=== PATIENT | male | born 1945 ===

== ENCOUNTER 2016-12-05 16:01 | Inpatient (IN) | payer MEDICARE ==
[2016-12-05 17:10] LABS: BASO % 0.6 % (0.0-2.0); EOS # 0.2 K/uL (0.0-0.7); EOS % 4.4 % (0.0-4.0); HEMATOCRIT 32.3 % (35.0-51.0); LYMPH # 0.9 K/uL (1.0-4.3); LYMPH % 18.4 % (20.0-40.0); MEAN CELL VOLUME 89.1 fL (80.0-94.0); MEAN CORPUSCULAR HEMOGLOBIN 28.9 pg (27.0-31.0); MEAN CORPUSCULAR HGB CONC 32.4 g/dL (33.0-37.0); MEAN PLATELET VOLUME 10.8 fL (7.2-11.7); MONO # 0.4 K/uL (0.0-0.8); MONO % 8.3 % (0.0-10.0); RED CELL DISTRIBUTION WIDTH 14.2 % (11.5-14.5); WHITE BLOOD COUNT 4.9 K/uL (4.8-10.8)
[2016-12-05 17:15] LABS: POTASSIUM 5.4 mmol/L (3.6-5.2)
[2016-12-05 17:17] LABS: ALB/GLOB RATIO 1.2 (1.0-2.1); BILIRUBIN,TOTAL 0.4 mg/dL (0.2-1.3)
[2016-12-05 17:18] LABS: CALCIUM 7.7 mg/dl (8.6-10.4)
--- NOTE | 2016-12-05 17:24 | RAD ---
HISTORY: chest pain COMPARISON: None available TECHNIQUE: Chest, one view. FINDINGS: LUNGS: No focal consolidation. Please note that chest x-ray has limited sensitivity for the detection of pulmonary masses. PLEURA: No significant pleural effusion identified. No definite pneumothorax . CARDIOVASCULAR: Heart size appears top normal. Atherosclerotic calcifications of the aorta. OSSEOUS STRUCTURES: Degenerative changes. VISUALIZED UPPER ABDOMEN: Unremarkable. OTHER FINDINGS: None. IMPRESSION: No focal consolidation, significant pleural effusion, or definite pneumothorax identified.
[2016-12-05 17:28] LABS: TROPONIN I 0.016 ng/mL (0.00-0.120)
--- NOTE | 2016-12-05 18:09 | C.PDOC ---
History Of Present Illness The patient, a 71 y/o male, is brought to the ED by ambulance for evaluation of a syncopal episode which occurred earlier today. Patient states he was walking when he suddenly began feeling very tired. Patient then regained consciousness and saw a bystander who had been attempting to wake him up. The bystander had called the ambulance and patient reports to the ED for further evaluation. Patient reports he had 3 similar syncopal episodes in the past (3 months ago and 5 years ago) but states he did not seek medical evaluation at the time. Upon ED arrival, patient was found to have elevated blood pressure. Otherwise, patient denies fever, chills, chest pain, shortness of breath, and vomiting. Time Seen by Provider: 12/05/16 16:28 Chief Complaint (Nursing): Syncope History Per: Patient, EMS History/Exam Limitations: no limitations Onset/Duration Of Symptoms: Hrs Current Symptoms Are (Timing): Better Activity At Onset Of Symptoms: Sitting Associated Symptoms Preceding Syncopal Episode: No Predromal Symptoms (Sudden Onset) Seizure Or Post-ictal Symptoms: None Fall Associated With With Symptoms: No Additional History Per: Patient, EMS Past Medical History Reviewed: Historical Data, Nursing Documentation, Vital Signs Vital Signs: Last Vital Signs Temp 98.0 F 12/07/16 07:02 Pulse 84 12/07/16 08:00 Resp 18 12/07/16 07:02 BP 168/76 H 12/07/16 09:17 Pulse Ox 98 12/07/16 07:02 - Medical History PMH: HTN, Hypercholesterolemia Surgical History: No Surg Hx Family History: States: Unknown Family Hx - Social History Hx Alcohol Use: Yes Hx Substance Use: No - Immunization History Hx Tetanus Toxoid Vaccination: (not sure) Hx Influenza Vaccination: (not sure) Hx Pneumococcal Vaccination: (not sure) Review Of Systems Constitutional: Negative for: Fever, Chills Cardiovascular: Negative for: Chest Pain Respiratory: Negative for: Shortness of Breath Gastrointestinal: Negative for: Vomiting Neurological: Positive for: Other (+syncopal episode ) Physical Exam - Physical Exam Appears: Non-toxic, No Acute Distress Skin: Normal Color, Warm, Dry Head: Atraumatic, Normacephalic Eye(s): bilateral: Normal Inspection, PERRL, EOMI Oral Mucosa: Moist Neck: Supple Chest: Symmetrical, No Deformity, No Tenderness Cardiovascular: Rhythm Regular, No Murmur Respiratory: Normal Breath Sounds, No Rales, No Rhonchi, No Wheezing Gastrointestinal/Abdominal: Soft, No Tenderness, No Guarding, No Rebound Back: Normal Inspection, No Vertebral Tenderness, No Paraspinal Tenderness Extremity: Normal ROM Neurological/Psych: Oriented x3, Normal Speech, Normal Cognition Gait: Steady ED Course And Treatment - Laboratory Results Result Diagrams: 12/07/16 11:21 12/07/16 11:21 ECG: Interpreted By Me, Viewed By Me ECG Rhythm: Sinus Rhythm Interpretation Of ECG: Normal Sinus Rhythm at rate 85bpm. Old inferior NE. No acute changes. Rate From EC O2 Sat by Pulse Oximetry: 100 (on RA) Pulse Ox Interpretation: Normal - Other Rad CXR X-Ray: Interpreted by Me, Viewed By Me, Read By Radiologist Interpretation: Accession No. : [id number]. Patient Name / ID : GILBERT CANCHOLA / [id number]. Exam Date : 12/05/2016 16:59:00 ( Approved ). Study Comment : Sex / Age : M / 71Y. Creator : Soraya Bond MD. Dictator : Soraya Bond MD. Inspector Air Carrier : Director Of Contracts : Soraya Bond MD. Approver2 : Report Date : 12/05/2016 17:22:45. My Comment : . HISTORY: chest pain. COMPARISON: None available. TECHNIQUE: Chest, one view. FINDINGS: LUNGS: No focal consolidation. Please note that chest x- ray has limited sensitivity for the detection of pulmonary masses. PLEURA: No significant pleural effusion identified. No definite pneumothorax . CARDIOVASCULAR: Heart size appears top normal. Atherosclerotic calcifications of the aorta. OSSEOUS STRUCTURES: Degenerative changes. VISUALIZED UPPER ABDOMEN: Unremarkable. OTHER FINDINGS: None. IMPRESSION: No focal consolidation, significant pleural effusion, or definite pneumothorax identified. Progress Note: Labs, EKG, and CXR ordered and reviewed. Medical Decision Making Medical Decision Making: Pt remained stable in the ED Labs show elevated creat with anemia likely CKD, pt unsure of past renal hx In view of the above pt will need admission for further evaluation Discussed with dr Kirby agrees with plan Disposition - Disposition Disposition: HOSPITALIZED Disposition Time: 00:00 Condition: GOOD - Clinical Impression Clinical Impression: Syncope, Renal failure - Scribe Statement The provider has reviewed the documentation as recorded by the Scribe (Xochitl Ewing) Provider Attestation: All medical record entries made by the Scribe were at my direction and personally dictated by me. I have reviewed the chart and agree that the record accurately reflects my personal performance of the history, physical exam, medical decision making, and the department course for this patient. I have also personally directed, reviewed, and agree with the discharge instructions and disposition.
--- NOTE | 2016-12-05 20:33 | CP.PCM.HP ---
<Dewayne JIMENEZBrittny Franks - Last Filed: 12/05/16 22:15> History of Present Illness - History of Present Illness History of Present Illness: Patient is a 71 year old male with past medical history of HTN, HLD who presents to the ER after syncopal episode. Interview conducted with video snailer Sarah # [id number]. Patient states that he was walking around doing errands when he suddenly felt very tired like he could fall asleep at that moment. Patient denies dizziness or lightheadedness at that time but admits to diaphoresis and feeling hot. Patient states that he held himself up against a wall because he felt like he would fall to the ground. He states that a bystander saw him looking unwell and asked if he needed an ambulance. Patient states he told the bystander he did not feel well and so was brought by ambulance to the ED. Patient reports a similar episode 2 weeks ago and a few years ago. Patient states that when this sensation occurred 2 weeks ago he was home and did nothing as he assumed the sensation would pass, which it did. Patient denies seeking medical attention for this issue 2 weeks ago. Patient states that when this happened several years ago he was told he had some type of blockage in an artery and he went to see a sports recruiter. Patient denies cardiac catheterization and states he cannot explain how the doctor knew he had a blockage. Patient denies headache, dizziness/ lightheadedness, fatigue, visual changes, dyspnea/ dyspnea on exertion, cough, leg swelling, orthopnea, weight or appetite changes. Patient currently asymptomatic. Patient denies loss of consciousness. PMD: none Outpatient cardio: Dr. Tawana Lira PMH: HTN, HLD, blood problem unspecified, artery blockage unspecified- of note, patient has visit listed in EMR for CKD stage 4 in 2013- patient has no memory of this Meds: patient states he takes 4 pills but cannot recall what they are- will call [facility] in AM for medications [phone]; admits to taking occasional motrin for back pain- most is 2 tablets of OTC 200mg a day PSHx: eye surgeries for unspecified visual problem- both eyes, appendectomy, possible EGD/ colonoscopy in 1987- patient does not know for what- he states he was not feeling well at that time and states he had a camera go in his mouth and rectum FamHx: denies SocialHx: denies alcohol, drugs, tobacco; lives in apt alone; does some construction work to pay bills Present on Admission - Present on Admission Any Indicators Present on Admission: No Review of Systems - Constitutional Constitutional: Lethargy, Weakness. absent: Chills, Fever - EENT Eyes: Loss of Vision (chronic s/p eye surgeries) Ears: absent: Dizziness - Cardiovascular Cardiovascular: Diaphoresis. absent: Chest Pain, Chest Pain at Rest, Dyspnea, Dyspnea on Exertion, Leg Edema, Lightheadedness, Palpitations, Pedal Edema, Rapid Heart Rate - Respiratory Respiratory: absent: Cough, Dyspnea, Dyspnea on Exertion - Gastrointestinal Gastrointestinal: absent: Abdominal Pain, Change in Bowel Habits, Change in Stool Character, Constipation, Diarrhea, Hematemesis, Hematochezia, Loose Stools , Nausea, Vomiting - Genitourinary Genitourinary: absent: Difficulty Urinating, Hematuria - Musculoskeletal Musculoskeletal: Back Pain (chronic) - Integumentary Integumentary: absent: Dry Skin, Rash - Neurological Neurological: Syncope, Weakness. absent: Dizziness, Vertigo Past Patient History - Past Social History Smoking Status: Never Smoked - CARDIAC Hx Hypercholesterolemia: Yes Hx Hypertension: Yes - PSYCHIATRIC Hx Substance Use: No Meds Allergies/Adverse Reactions: Allergies Allergy/AdvReac Type Severity Reaction Status Date / Time No Known Allergies Allergy Verified 12/05/16 16:17 Physical Exam - Constitutional Appears: Non-toxic, No Acute Distress - Head Exam Head Exam: ATRAUMATIC, NORMOCEPHALIC - Eye Exam Eye Exam: EOMI, Normal appearance. absent: Conjunctival injection - ENT Exam ENT Exam: Mucous Membranes Moist - Neck Exam Neck exam: Negative for: Lymphadenopathy, Thyromegaly - Respiratory Exam Respiratory Exam: Clear to Auscultation Bilateral, NORMAL BREATHING PATTERN. absent: Chest Wall Tenderness, Rales, Rhonchi, Wheezes - Cardiovascular Exam Cardiovascular Exam: +S1, +S2 - GI/Abdominal Exam GI & Abdominal Exam: Normal Bowel Sounds, Soft. absent: Distended, Firm, Guarding, Tenderness - Rectal Exam Rectal Exam: NORMAL INSPECTION. absent: Bloody Stool, Hemorrhoids, Fecal Impaction - Extremities Exam Extremities exam: Positive for: normal inspection. Negative for: calf tenderness, pedal edema - Neurological Exam Neurological exam: Alert, CN II-XII Intact, Normal Gait - Psychiatric Exam Psychiatric exam: Normal Affect - Skin Skin Exam: Dry, Warm Results - Vital Signs Recent Vital Signs: Last Vital Signs Temp 97.9 F 12/05/16 16:13 Pulse 86 12/05/16 16:13 Resp 18 12/05/16 16:13 BP 164/59 H 12/05/16 16:13 Pulse Ox 100 12/05/16 18:18 - Labs Result Diagrams: 12/05/16 17:01 12/05/16 17:01 Assessment & Plan (1) Syncope Assessment and Plan: CT head-no acute bleed- official read pending EKG NSR @ 85, possible old inferior NE will repeat EKG in AM will check orthostatics cartoid US ordered MRI brain ordered echo ordered First RAÚL negative, will continue to trend Dr. Lira, patient's sports recruiter, consulted- help appreciated giving one dose aspirin 325, crestor 5mg Status: Acute (2) HTN (hypertension) Assessment and Plan: Patient's medications unknown, will contact [facility] tomorrow morning will continue to monitor and add medications as necessary Status: Acute (3) Renal insufficiency Assessment and Plan: patient with outpatient visit in 2013 for CKD stage 4- patient unaware of renal problems Consult placed for Dr. Fry, help appreciated renal US ordered, will F/U result will check urine sodium, creatinine, osmolality, will check 24h urine protein starting NS @ 100cc/h Status: Acute (4) Anemia Assessment and Plan: Likely chronic, secondary to chronic kidney disease patient states history of blood problem, does not know what will check iron, TIBC, retic count Status: Chronic (5) HLD (hyperlipidemia) Assessment and Plan: will give crestor 5mg until home medications verified Status: Chronic (6) Prophylactic measure Assessment and Plan: SCDs, protonix holding chemical anticoagulation fall precautions Status: Acute <Jovanni Kirby - Last Filed: 12/06/16 06:24> Results - Vital Signs Recent Vital Signs: Last Vital Signs Temp 98.1 F 12/05/16 23:11 Pulse 86 12/05/16 23:11 Resp 20 12/05/16 23:11 BP 206/94 H 12/05/16 23:11 Pulse Ox 100 12/05/16 23:11 - Labs Result Diagrams: 12/05/16 17:01 12/05/16 17:01 Labs: Laboratory Results - last 24 hr 12/05/16 12/05/16 21:11 22:35 Retic Count 0.7 Serum Osmolality 315 H Iron 58 TIBC 298 % Saturation 19 L Ferritin 16.5 Total Creatine Kinase 140 CK-MB (Mass) 1.50 Troponin I, Quant 0.0180 Urine Osmolality 294 L Ur Random Creatinine 59.8 Ur Random Sodium 30 Stool Occult Blood Negative Assessment & Plan - Date & Time Date: 12/06/16 (I have seen and examined the patient. I agree with the findings and plan of care as documented by Dr. Buchanan. Patient with syncope. CT head negative. Check MRI brain in AM. Patient reports past cardiac issue but could not specify. ROMIx3 with EKG. For renal insufficiency , check renal ultrasound. Chronic issue compared to prior labs. Nephro consult. Also with anemia. Check iron studies. Hemoccult negative. Monitor for acute changes.) Time: 06:21 Attending/Attestation - Attestation I have personally seen and examined this patient.: Yes I have fully participated in the care of the patient.: Yes I have reviewed all pertinent clinical information: Yes
[2016-12-05] MEDS ORDERED: Aspirin 325 mg EC Tablets PO STA (21:32)
[2016-12-05 22:53] LABS: IRON 58 ug/dL (49-181)
[2016-12-05 22:58] LABS: CREATININE, RANDOM URINE 59.8 mg/dL
[2016-12-06] MEDS: Sodium Chloride 0.9% 1,000 ML IV SCH ×5 (00:09→23:23)
[2016-12-06 06:27] LABS: BASO % 0.7 % (0.0-2.0); EOS # 0.2 K/uL (0.0-0.7); EOS % 3.4 % (0.0-4.0); HEMATOCRIT 30.1 % (35.0-51.0); LYMPH # 1.4 K/uL (1.0-4.3); LYMPH % 24.4 % (20.0-40.0); MEAN CELL VOLUME 89.6 fL (80.0-94.0); MEAN CORPUSCULAR HEMOGLOBIN 28.8 pg (27.0-31.0); MEAN CORPUSCULAR HGB CONC 32.1 g/dL (33.0-37.0); MEAN PLATELET VOLUME 10.9 fL (7.2-11.7); MONO # 0.6 K/uL (0.0-0.8); RED CELL DISTRIBUTION WIDTH 14.2 % (11.5-14.5); WHITE BLOOD COUNT 5.9 K/uL (4.8-10.8)
[2016-12-06 06:30] LABS: POTASSIUM 4.3 mmol/L (3.6-5.2)
[2016-12-06 06:32] LABS: ALB/GLOB RATIO 1.1 (1.0-2.1); BILIRUBIN,TOTAL 0.6 mg/dL (0.2-1.3)
[2016-12-06 06:33] LABS: CALCIUM 7.2 mg/dl (8.6-10.4)
[2016-12-06 06:52] LABS: T4 4.21 ug/dL (5.5-11.0)
[2016-12-06 07:05] LABS: THYROID STIMULATING HORMONE 2.32 mIU/L (0.46-4.68)
--- NOTE | 2016-12-06 07:54 | CT ---
PROCEDURE: CT HEAD WITHOUT CONTRAST. HISTORY: Fall COMPARISON: None available. TECHNIQUE: Axial computed tomography images were obtained through the head/brain without intravenous contrast. Radiation dose: Total exam DLP = 899 mGy-cm. This CT exam was performed using one or more of the following dose reduction techniques: Automated exposure control, adjustment of the mA and/or kV according to patient size, and/or use of iterative reconstruction technique. FINDINGS: HEMORRHAGE: No intracranial hemorrhage. BRAIN: Scattered focal lucencies in the subcortical and periventricular white matter suggestive for chronic microvascular ischemic change. Mild to moderate brain volume loss. Focal hypodensity in the posterior left cerebellum may represent chronic infarct as seen on series 4, image 7. This measures 8 millimeters. VENTRICLES: Unremarkable. No hydrocephalus. CALVARIUM: Unremarkable. PARANASAL SINUSES: Unremarkable as visualized. No significant inflammatory changes. MASTOID AIR CELLS: Unremarkable as visualized. No inflammatory changes. OTHER FINDINGS: Calcific atherosclerosis of the bilateral carotid siphon. IMPRESSION: No acute intracranial abnormality. Chronic microvascular ischemic change. Focal hypodensity in the posterior left cerebellum may represent chronic infarct as seen on series 4, image 7. This measures 8 millimeters. If focal neurologic deficit persists, consider MRI. Additional findings as above. These findings were preliminarily reported by doctor Ivan Self from [email or web address] at 8:46 p.m. on 12/05/2016.
--- NOTE | 2016-12-06 08:19 | US ---
PROCEDURE: Ultrasound of the Kidneys HISTORY: Markedly elevated creat COMPARISON: None available. TECHNIQUE: Grayscale imaging was performed. FINDINGS: RIGHT KIDNEY: Measures: 9.0 cm. Normal in size, contour with diffuse increased echogenicity. No stone, solid mass lesion or hydronephrosis visualized. LEFT KIDNEY: Measures: 9.4 cm. Normal in size, contour with diffuse increased echogenicity. No stone, solid mass lesion or hydronephrosis visualized. OTHER FINDINGS: None. IMPRESSION: Medical renal disease. No hydronephrosis or nephrolithiasis. A preliminary report was provided by [employer].
[2016-12-06] MEDS ORDERED: Pantoprazole 40 mg EC Tab PO SCH (10:00)
--- NOTE | 2016-12-06 11:56 | CP.PCM.CON ---
History of Present Illness - History of Present Illness History of Present Illness: 71 y/o male with Hx/o HTN, CKD, RI, CVA hyperlipidemia was admitted last night for syncopal episode Renal consult is requested for evaluation of abnormal renal function. x is obtained from Pt via yi interpretor. Pt states that he found out for the first time that he has kiney problem. Had blood tests 2 mos ago & was told that everything was OK. Does not know name of his doctor Pts son also doesnot know if Pt had any kidney problem No FHx/o kidney dis. Past Patient History - Past Social History Smoking Status: Never Smoked - CARDIAC Hx Hypercholesterolemia: Yes Hx Hypertension: Yes - MUSCULOSKELETAL/RHEUMATOLOGICAL Hx Falls: No - PSYCHIATRIC Hx Substance Use: No Meds Allergies/Adverse Reactions: Allergies Allergy/AdvReac Type Severity Reaction Status Date / Time No Known Allergies Allergy Verified 12/05/16 16:17 - Medications Medications: Current Medications Sodium Chloride (Sodium Chloride 0.9%) 1,000 mls @ 100 mls/hr IV .Q10H [facility] Last Admin: 12/06/16 11:48 Dose: Not Given Pantoprazole Sodium (Protonix Ec Tab) 40 mg PO DAILY [facility] Last Admin: 12/06/16 11:46 Dose: 40 mg Pneumococcal Polyvalent Vaccine (Pneumovax 23 Vaccine) 0.5 ml IM .ONCE ONE Stop: 12/08/16 10:01 Rosuvastatin Calcium (Crestor) 5 mg PO [facility] Last Admin: 12/05/16 23:04 Dose: 5 mg Physical Exam - Constitutional Appears: No Acute Distress - Head Exam Head Exam: ATRAUMATIC, NORMOCEPHALIC - Eye Exam Additional comments: No icterus - ENT Exam ENT Exam: Mucous Membranes Dry - Respiratory Exam Additional comments: Lungs clear - Cardiovascular Exam Cardiovascular Exam: REGULAR RHYTHM - GI/Abdominal Exam GI & Abdominal Exam: Soft Additional comments: Abdomen is nontender. No CVA tenderness - Extremities Exam Additional comments: No edema Results - Vital Signs Recent Vital Signs: Last Vital Signs Temp 97 F L 12/06/16 07:10 Pulse 84 12/06/16 07:10 Resp 18 12/06/16 07:10 BP 169/75 H 12/06/16 07:10 Pulse Ox 96 12/06/16 07:10 - Labs Result Diagrams: 12/06/16 06:11 12/06/16 06:11 Labs: Laboratory Results - last 24 hr 12/05/16 12/05/16 12/06/16 21:11 22:35 06:11 WBC 5.9 RBC 3.36 L Hgb 9.7 L Hct 30.1 L MCV 89.6 MCH 28.8 MCHC 32.1 L RDW 14.2 Plt Count 138 MPV 10.9 Neut % (Auto) 61.5 Lymph % (Auto) 24.4 [place] % (Auto) 10.0 Eos % (Auto) 3.4 Baso % (Auto) 0.7 Neut # 3.6 Lymph # 1.4 [place] # 0.6 Eos # 0.2 Baso # 0.0 Retic Count 0.7 Sodium 140 Potassium 4.3 Chloride 108 H Carbon Dioxide 18 L Anion Gap 18 BUN 67 H Creatinine 5.3 H Est GFR ( Amer) 13 Est GFR (Non-Af Amer) 11 Random Glucose 73 L Hemoglobin A1c 6.1 Serum Osmolality 315 H Calcium 7.2 L Iron 58 TIBC 298 % Saturation 19 L Ferritin 16.5 Total Bilirubin 0.6 AST 21 ALT 15 L Alkaline Phosphatase 82 Total Creatine Kinase 140 149 CK-MB (Mass) 1.50 1.58 Troponin I, Quant 0.0180 0.0360 Total Protein 7.0 Albumin 3.7 Globulin 3.3 Albumin/Globulin Ratio 1.1 Triglycerides 143 Cholesterol 141 LDL Cholesterol Direct 63 HDL Cholesterol 39 Thyroxine (T4) 4.21 L TSH 3rd Generation 2.32 Urine Osmolality 294 L Ur Random Creatinine 59.8 Ur Random Sodium 30 Stool Occult Blood Negative Assessment & Plan - Assessment and Plan (Free Text) Assessment: Pt most likely has chronic kidney Dis. Renal US reveals B/L echogenic kidneys HTN CAD, hyperlipidemia, old CVA Plan: urine spot lytes Phos level, PTH Gentle hydration BP has been high, Will add hydralazine
[2016-12-06 13:21] LABS: PHOSPHOROUS 5.6 mg/dL (2.5-4.5)
--- NOTE | 2016-12-06 14:43 | VASCLAB ---
PROCEDURE: HISTORY: syncope COMPARISON: None available. TECHNIQUE: Grayscale and duplex Doppler evaluation of the cervical carotid and vertebral arteries were performed. The common carotid, carotid bifurcations and cervical Internal Carotid Artery (ICA) and proximal External Carotid Artery (ECA) were evaluated. The vertebral arteries were evaluated for gross patency and flow direction. Report prepared by AZIZA Estes FINDINGS: RIGHT CAROTID ARTERIES: 1. Common Carotid Artery: Minimal heterogeneous plaque formation of the right CCA which does not result in hemodynamically significant stenosis. Maximum Peak Systolic velocity: 76 cm/sec: End-diastolic velocity 14 cm/sec. 2. Carotid Bifurcation: Heterogeneous plaque formation. Maximum Peak Systolic velocity: 68 cm/sec: End-diastolic velocity 14cm/sec. 3. Internal Carotid Artery: Plaque description: Heterogeneous 3.1. Proximal Segment: Peak systolic velocity 60 cm/sec: End-diastolic velocity 20 cm/sec - % stenosis 0-15% 3.2. Middle Segment: Peak systolic velocity 109 cm/sec: End-diastolic velocity 31 cm/sec - % stenosis 0-15% 3.3. Distal Segment: Peak systolic velocity 78 cm/sec: End-diastolic velocity 21 cm/sec - % stenosis 0-15% 4. External Carotid Artery: No significant focal plaque formation. Peak systolic velocity 101 cm/sec 5. ICA/CCA Ratio: 1.4 LEFT CAROTID ARTERIES: 1. Common Carotid Artery: Minimal heterogeneous plaque formation of the left CCA which does not result in hemodynamically significant stenosis. Maximum Peak Systolic velocity: 91 cm/sec: End-diastolic velocity 20 cm/sec. 2. Carotid Bifurcation: Heterogeneous plaque formation. Maximum Peak Systolic velocity: 78 cm/sec: End-diastolic velocity 21 cm/sec. 3. Internal Carotid Artery: Plaque description: Heterogeneous 3.1. Proximal Segment: Peak systolic velocity 81 cm/sec: End-diastolic velocity 29 cm/sec - % stenosis 0-15% 3.2. Middle Segment: Peak systolic velocity 110 cm/sec: End-diastolic velocity 29 cm/sec - % stenosis 0-15% 3.3. Distal Segment: Peak systolic velocity 66 cm/sec: End-diastolic velocity 26 cm/sec - % stenosis 0-15% 4. External Carotid Artery: No significant focal plaque formation. Peak systolic velocity 93 cm/sec 5. ICA/CCA Ratio: 1.2 VERTEBRAL ARTERIES: 1. Right Vertebral Artery: The right vertebral artery flow direction is antegrade. 2. Left Vertebral Artery: The left vertebral artery flow direction is antegrade. OTHER FINDINGS: 1. Right Brachial Blood pressure: 180 mmHg. 2. Left Brachial Blood pressure: 180 mmHg. IMPRESSION: RIGHT: Duplex scan does not suggest hemodynamically significant stenosis of the right extracranial carotid arteries. LEFT: Duplex scan does not suggest hemodynamically significant stenosis of the left extracranial carotid arteries.
--- NOTE | 2016-12-06 15:08 | CP.PCM.PN ---
<LeighsushilMike mckeon - Last Filed: 12/06/16 16:15> Subjective - Date & Time of Evaluation Date of Evaluation: 12/06/16 Time of Evaluation: 09:00 - Subjective Subjective: PGY-1 Medicine Progress Note for Dr. Mooney Patient seen and examined at bedside. No acute event overnight. Patient resting in bed comfortably. Patient stated that he did not loss conscious yesterdya. He felt extremely dizzy while walking and thought he was going to fall or pass out. Patient reported that the dizziness/lightheaded has since resolved. He is tolerating diet. Denied fever/chills, cp, sob, headache, palpitations, abd pain , n/v/d. Objective - Vital Signs/Intake and Output Vital Signs (last 24 hours): Temp Pulse Resp BP Pulse Ox 97 F L 85 18 169/75 H 96 12/06/16 07:10 12/06/16 14:18 12/06/16 07:10 12/06/16 07:10 12/06/16 07:10 - Medications Medications: Current Medications Heparin Sodium (Porcine) (Heparin) 5,000 units SC Q12 [facility] Hydralazine HCl (Apresoline) 10 mg IVP TID [facility] Sodium Chloride (Sodium Chloride 0.9%) 1,000 mls @ 100 mls/hr IV .Q10H [facility] Last Admin: 12/06/16 11:48 Dose: Not Given Pantoprazole Sodium (Protonix Ec Tab) 40 mg PO DAILY [facility] Last Admin: 12/06/16 11:46 Dose: 40 mg Pneumococcal Polyvalent Vaccine (Pneumovax 23 Vaccine) 0.5 ml IM .ONCE ONE Stop: 12/08/16 10:01 Rosuvastatin Calcium (Crestor) 5 mg PO HS [facility] Last Admin: 12/05/16 23:04 Dose: 5 mg - Labs Labs: 12/06/16 06:11 12/06/16 06:11 - Constitutional Appears: No Acute Distress - Head Exam Head Exam: ATRAUMATIC, NORMOCEPHALIC - Eye Exam Eye Exam: EOMI, Normal appearance Pupil Exam: PERRL - ENT Exam ENT Exam: Mucous Membranes Moist - Neck Exam Neck Exam: Normal Inspection - Respiratory Exam Respiratory Exam: Clear to Ausculation Bilateral, NORMAL BREATHING PATTERN - Cardiovascular Exam Cardiovascular Exam: REGULAR RHYTHM, +S1, +S2 - GI/Abdominal Exam GI & Abdominal Exam: Soft, Normal Bowel Sounds. absent: Tenderness - Extremities Exam Extremities Exam: Normal Capillary Refill. absent: Calf Tenderness - Back Exam Back Exam: absent: CVA tenderness (L), CVA tenderness (R) - Neurological Exam Neurological Exam: Alert, Awake, CN II-XII Intact, Oriented x3 - Psychiatric Exam Psychiatric exam: Normal Affect, Normal Mood - Skin Skin Exam: Dry, Intact, Normal Color, Warm Assessment and Plan - Assessment and Plan (Free Text) Plan: (1) Syncope Assessment and Plan: CT head: no acute intracranial abnormality. Chronic microvascular changes. Focal hypodensities in posterior left cerebellum possibly due to chronic infarct (see full report) EKG NSR @ 85, possible old inferior [place] orthostats Q4H cartoid US: negative (see full report) MRI brain ordered ECHO RAÚL negative x 3 Cardio consult, Dr. Lira, help appreciated (2) HTN Assessment and Plan: Metoprolol 25 mg PO BID Hydralazine 10 mg IVP TID Continue to monitor (3) Renal insufficiency Assessment and Plan: patient with outpatient visit in 2013 for CKD stage 4- patient unaware of renal problems Nephro consult, Dr. Fry, help appreciated renal US: medical renal disease f/u urine sodium, creatinine, osmolality, 24h urine protein NS 100cc/hr (4) Anemia Assessment and Plan: Likely chronic, secondary to chronic kidney disease patient states history of blood problem, does not know what iron TIBC retic count (5) HLD Assessment and Plan: Crestor 5 mg PO HS (6) CAD Assessment and Plan: ASA 81 mg PO daily Crestor 5 mg PO HS Plavix 75 mg PO daily (7) Prophylactic measure Assessment and Plan: SCDs protonix Heparin fall precautions Contacted [facility] ([address] [place] [address]) home medications obtained and added to patient summary: Simvastatin 20 mg PO daily, ASA 81 mg PO daily, Plavix 75 mg PO daily, Metoprolol 25 mg PO BID <Shashi Mooney - Last Filed: 01/10/17 12:06> Objective - Vital Signs/Intake and Output Vital Signs (last 24 hours): Temp Pulse Resp BP Pulse Ox 98.1 F 87 20 170/70 H 98 12/09/16 08:22 12/09/16 08:22 12/09/16 08:22 12/09/16 08:22 12/09/16 08:22 - Labs Labs: 12/09/16 07:51 12/09/16 07:51 Attending/Attestation - Attestation I have personally seen and examined this patient.: Yes I have fully participated in the care of the patient.: Yes I have reviewed all pertinent clinical information, including history, physical exam and plan: Yes Notes (Text): Patient seen and examined with the resident. Agree with the resident's evaluation, assessment and plan. Syncope Assessment and Plan: CT head: no acute intracranial abnormality. Chronic microvascular changes. Focal hypodensities in posterior left cerebellum possibly due to chronic infarct (see full report) EKG NSR @ 85, possible old inferior [place] orthostats Q4H cartoid US: negative (see full report) MRI brain ordered ECHO RAÚL negative x 3 Cardio consult, Dr. Lira, help appreciated HTN Assessment and Plan: Metoprolol 25 mg PO BID Hydralazine 10 mg IVP TID Continue to monitor
--- NOTE | 2016-12-06 17:55 | CP.PCM.CON ---
History of Present Illness - History of Present Illness History of Present Illness: I felt dizzy and felt like passing out and sat down. Had similar episode two weeks ago. History through chart and records tech. Past Patient History - Past Social History Smoking Status: Never Smoked - CARDIAC Hx Hypercholesterolemia: Yes Hx Hypertension: Yes - MUSCULOSKELETAL/RHEUMATOLOGICAL Hx Falls: No - PSYCHIATRIC Hx Substance Use: No Meds Allergies/Adverse Reactions: Allergies Allergy/AdvReac Type Severity Reaction Status Date / Time No Known Allergies Allergy Verified 12/05/16 16:17 - Medications Medications: Current Medications Aspirin (Ecotrin) 81 mg PO DAILY [facility] Clopidogrel Bisulfate (Plavix) 75 mg PO DAILY [facility] Last Admin: 12/06/16 17:15 Dose: 75 mg Famotidine (Pepcid) 20 mg PO DAILY [facility] Heparin Sodium (Porcine) (Heparin) 5,000 units SC Q12 [facility] Hydralazine HCl (Apresoline) 10 mg IVP TID [facility] Last Admin: 12/06/16 17:43 Dose: 10 mg Sodium Chloride (Sodium Chloride 0.9%) 1,000 mls @ 100 mls/hr IV .Q10H [facility] Last Admin: 12/06/16 11:48 Dose: Not Given Metoprolol Tartrate (Lopressor) 25 mg PO BID [facility] Last Admin: 12/06/16 17:42 Dose: 25 mg Pneumococcal Polyvalent Vaccine (Pneumovax 23 Vaccine) 0.5 ml IM .ONCE ONE Stop: 12/08/16 10:01 Rosuvastatin Calcium (Crestor) 5 mg PO [facility] Last Admin: 12/05/16 23:04 Dose: 5 mg Physical Exam - Head Exam Head Exam: NORMOCEPHALIC - Neck Exam Neck exam: Positive for: Normal Inspection - Respiratory Exam Respiratory Exam: NORMAL BREATHING PATTERN - Cardiovascular Exam Cardiovascular Exam: REGULAR RHYTHM (1/6 systolic murmur ), Systolic Murmur - Extremities Exam Extremities exam: Positive for: normal inspection - Neurological Exam Neurological exam: Oriented x3 Results - Vital Signs Recent Vital Signs: Last Vital Signs Temp 97 F L 12/06/16 07:10 Pulse 85 12/06/16 14:18 Resp 18 12/06/16 07:10 BP 147/68 12/06/16 17:42 Pulse Ox 96 12/06/16 07:10 - Labs Result Diagrams: 12/06/16 06:11 12/06/16 06:11 Labs: Laboratory Results - last 24 hr 12/05/16 12/05/16 12/06/16 21:11 22:35 06:11 WBC 5.9 RBC 3.36 L Hgb 9.7 L Hct 30.1 L MCV 89.6 MCH 28.8 MCHC 32.1 L RDW 14.2 Plt Count 138 MPV 10.9 Neut % (Auto) 61.5 Lymph % (Auto) 24.4 [place] % (Auto) 10.0 Eos % (Auto) 3.4 Baso % (Auto) 0.7 Neut # 3.6 Lymph # 1.4 [place] # 0.6 Eos # 0.2 Baso # 0.0 Retic Count 0.7 Sodium 140 Potassium 4.3 Chloride 108 H Carbon Dioxide 18 L Anion Gap 18 BUN 67 H Creatinine 5.3 H Est GFR ( Amer) 13 Est GFR (Non-Af Amer) 11 Random Glucose 73 L Hemoglobin A1c 6.1 Serum Osmolality 315 H Calcium 7.2 L Phosphorus 5.6 H Iron 58 TIBC 298 % Saturation 19 L Ferritin 16.5 Total Bilirubin 0.6 AST 21 ALT 15 L Alkaline Phosphatase 82 Total Creatine Kinase 140 149 CK-MB (Mass) 1.50 1.58 Troponin I, Quant 0.0180 0.0360 Total Protein 7.0 Albumin 3.7 Globulin 3.3 Albumin/Globulin Ratio 1.1 Triglycerides 143 Cholesterol 141 LDL Cholesterol Direct 63 HDL Cholesterol 39 Thyroxine (T4) 4.21 L TSH 3rd Generation 2.32 Urine Osmolality 294 L Ur Random Creatinine 59.8 Ur Random Sodium 30 Stool Occult Blood Negative Assessment & Plan (1) HTN (hypertension) Assessment and Plan: BP isnot well controlled, add norvasc 10 mg daily and add other vasodilator if needed. Status: Acute (2) Syncope Assessment and Plan: Most likely symptoms due to electrolyte abnormalities secondary to renal insufficiency. Make adjustments in the diet and medical regimen as guided by Nephrology. Status: Acute (3) CAD (coronary artery disease) Assessment and Plan: Stable, continue ASA/Plavix. Monitor for arrhythmias. Status: Acute
--- NOTE | 2016-12-07 07:58 | CARD ---
APPROVED REPORT EKG Measurement Heart [id number] <Conclusion> Normal sinus rhythm Possible Left atrial enlargement Inferior infarct, age undetermined Abnormal ECG
[2016-12-07 08:27] LABS: CREATININE, RANDOM URINE 49.1 mg/dL
--- NOTE | 2016-12-07 11:27 | CP.PCM.PN ---
Subjective - Date & Time of Evaluation Date of Evaluation: 12/07/16 Time of Evaluation: 10:00 - Subjective Subjective: Appears comfortable supine Objective - Vital Signs/Intake and Output Vital Signs (last 24 hours): Temp Pulse Resp BP Pulse Ox 98.0 F 84 18 168/76 H 98 12/07/16 07:02 12/07/16 08:00 12/07/16 07:02 12/07/16 09:17 12/07/16 07:02 Intake and Output: 12/07/16 12/07/16 06:59 18:59 Intake Total 1670 Output Total 1000 Balance 670 - Medications Medications: Current Medications Aspirin (Ecotrin) 81 mg PO DAILY [facility] Last Admin: 12/07/16 09:17 Dose: 81 mg Clopidogrel Bisulfate (Plavix) 75 mg PO DAILY [facility] Last Admin: 12/07/16 09:17 Dose: 75 mg Famotidine (Pepcid) 20 mg PO DAILY [facility] Last Admin: 12/07/16 09:17 Dose: 20 mg Heparin Sodium (Porcine) (Heparin) 5,000 units SC Q12 [facility] Last Admin: 12/07/16 09:17 Dose: 5,000 units Hydralazine HCl (Apresoline) 10 mg IVP TID [facility] Last Admin: 12/07/16 09:17 Dose: 10 mg Sodium Chloride (Sodium Chloride 0.9%) 1,000 mls @ 100 mls/hr IV .Q10H [facility] Last Admin: 12/06/16 23:23 Dose: 100 mls/hr Pneumococcal Polyvalent Vaccine (Pneumovax 23 Vaccine) 0.5 ml IM .ONCE ONE Stop: 12/08/16 10:01 Rosuvastatin Calcium (Crestor) 5 mg PO HS [facility] Last Admin: 12/06/16 22:24 Dose: 5 mg - Labs Labs: 12/06/16 06:11 12/06/16 06:11 - Respiratory Exam Additional comments: Lungs clear - Cardiovascular Exam Cardiovascular Exam: REGULAR RHYTHM - GI/Abdominal Exam GI & Abdominal Exam: Soft Additional comments: No tenderness - Extremities Exam Additional comments: No edema Assessment and Plan - Assessment and Plan (Free Text) Assessment: Acute on chronic renal failure Proteinuria. 24 hr urine reveals 3 g protein. Etiology unclear. There is no clear Hx/o DM Will order serologies & may need kidney Bx HTN CA, D Plan: Todays labs pending Urinalysis Serologies ordered
[2016-12-07 11:44] LABS: BASO % 0.7 % (0.0-2.0); EOS # 0.3 K/uL (0.0-0.7); EOS % 4.3 % (0.0-4.0); HEMATOCRIT 30.2 % (35.0-51.0); LYMPH % 16.8 % (20.0-40.0); MEAN CELL VOLUME 90.8 fL (80.0-94.0); MEAN CORPUSCULAR HEMOGLOBIN 29.1 pg (27.0-31.0); MEAN CORPUSCULAR HGB CONC 32.1 g/dL (33.0-37.0); MEAN PLATELET VOLUME 11.4 fL (7.2-11.7); MONO # 0.5 K/uL (0.0-0.8); MONO % 7.6 % (0.0-10.0); RED CELL DISTRIBUTION WIDTH 14.4 % (11.5-14.5)
[2016-12-07 11:45] LABS: POTASSIUM 4.8 mmol/L (3.6-5.2)
[2016-12-07 11:47] LABS: ALB/GLOB RATIO 1.1 (1.0-2.1); BILIRUBIN,TOTAL 0.2 mg/dL (0.2-1.3); TOTAL PROTEIN 6.7 g/dL (6.3-8.3)
[2016-12-07 11:48] LABS: CALCIUM 7.6 mg/dl (8.6-10.4)
[2016-12-07] MEDS: Sodium Chloride 0.9% 1,000 ML IV SCH ×2 (14:03→21:00)
--- NOTE | 2016-12-07 15:28 | MRI ---
PROCEDURE: MRI BRAIN WITHOUT CONTRAST HISTORY: syncope COMPARISON: None. TECHNIQUE: Multiplanar, multisequence MR images of the brain were obtained without intravenous contrast enhancement. FINDINGS: HEMORRHAGE: None DWI: No evidence of an acute or early subacute infarction. BRAIN PARENCHYMA: No mass effect or edema. There are fairly symmetrical foci of mild increased T2 signal seen in the danyel may involve the olivary nuclei. Mild to moderate atrophy and mbad-yu-dzizpzoe white matter changes are also noted. VENTRICLES: Unremarkable. No hydrocephalus. CRANIUM: Unremarkable. ORBITS: Grossly unremarkable. PARANASAL SINUSES/MASTOIDS: Clear VASCULAR SYSTEM: Skull base flow voids intact. OTHER FINDINGS: None. IMPRESSION: No evidence of acute pathology. No evidence of mass lesion mass effect or midline shift. Symmetrical foci of mild increased T2 signal seen in the danyel of uncertain etiology. Nqta-[id number] atrophy. White matter changes suggestive but nonspecific for chronic microvascular ischemic disease.
[2016-12-07 16:34] VITALS: RESP 20
[2016-12-07 17:05] LABS: RBC URINE < 1 /hpf (0-3); URINE BACTERIA RARE (<OCC); URINE BILIRUBIN NEGATIVE (NEGATIVE); URINE BLOOD NEGATIVE (NEGATIVE); URINE COLOR Straw (YELLOW); URINE GLUCOSE (UA) 2+ mg/dL (Normal); URINE KETONE NEGATIVE (NEGATIVE); URINE LEUKOCYTE ESTERASE NEG Leu/uL (Negative); URINE PROTEIN 2+ mg/dL (NEGATIVE); URINE UROBILINOGEN NORMAL mg/dL (0.2-1.0); WBC URINE < 1 /hpf (0-5)
[2016-12-07] MEDS ORDERED: Sodium Chloride 0.9% 500 ML IV ONE (17:39)
--- NOTE | 2016-12-07 17:56 | CP.PCM.PN ---
<GosiaMike - Last Filed: 12/07/16 19:36> Subjective - Date & Time of Evaluation Date of Evaluation: 12/07/16 Time of Evaluation: 17:44 - Subjective Subjective: PGY-1 Medicine Progress Note for Dr. Mooney Patient seen and examined at bedside. No acute event overnight. Patient resting in bed comfortably. Patient has no complaints today. Patient reported that the dizziness/lightheaded has resolved since inciting incident. He is tolerating diet. Denied fever/chills, cp, sob, headache, palpitations, abd pain, n/v/d. Objective - Vital Signs/Intake and Output Vital Signs (last 24 hours): Temp Pulse Resp BP Pulse Ox 97.4 F L 80 20 147/74 98 12/07/16 16:00 12/07/16 16:00 12/07/16 16:00 12/07/16 14:02 12/07/16 16:00 Intake and Output: 12/07/16 12/07/16 06:59 18:59 Intake Total 1670 Output Total 1000 Balance 670 - Medications Medications: Current Medications Aspirin (Ecotrin) 81 mg PO DAILY [facility] Last Admin: 12/07/16 09:17 Dose: 81 mg Clopidogrel Bisulfate (Plavix) 75 mg PO DAILY [facility] Last Admin: 12/07/16 09:17 Dose: 75 mg Famotidine (Pepcid) 20 mg PO DAILY [facility] Last Admin: 12/07/16 09:17 Dose: 20 mg Heparin Sodium (Porcine) (Heparin) 5,000 units SC Q12 [facility] Last Admin: 12/07/16 09:17 Dose: 5,000 units Hydralazine HCl (Apresoline) 10 mg IVP TID [facility] Last Admin: 12/07/16 14:02 Dose: 10 mg Sodium Chloride (Sodium Chloride 0.9%) 1,000 mls @ 100 mls/hr IV .Q10H [facility] Last Admin: 12/07/16 14:03 Dose: 100 mls/hr Sodium Chloride (Sodium Chloride 0.9%) 500 mls @ 1,000 mls/hr IV .Q30M ONE Stop: 12/07/16 18:08 Pneumococcal Polyvalent Vaccine (Pneumovax 23 Vaccine) 0.5 ml IM .ONCE ONE Stop: 12/08/16 10:01 Rosuvastatin Calcium (Crestor) 5 mg PO HS [facility] Last Admin: 12/06/16 22:24 Dose: 5 mg - Labs Labs: 12/07/16 11:21 12/07/16 11:21 - Constitutional Appears: No Acute Distress - Head Exam Head Exam: ATRAUMATIC, NORMOCEPHALIC - Eye Exam Eye Exam: EOMI, Normal appearance Pupil Exam: PERRL - ENT Exam ENT Exam: Mucous Membranes Moist - Neck Exam Neck Exam: Normal Inspection - Respiratory Exam Respiratory Exam: Clear to Ausculation Bilateral, NORMAL BREATHING PATTERN Assessment and Plan - Assessment and Plan (Free Text) Plan: (1) Syncope Assessment and Plan: CT head: no acute intracranial abnormality. Chronic microvascular changes. Focal hypodensities in posterior left cerebellum possibly due to chronic infarct (see full report) EKG NSR @ 85, possible old inferior [place] orthostats Q4H Orthostats were positive so NS 500 cc bolus then repeat cartoid US: negative (see full report) MRI brain: no acute pathology, lesion, or mass effect. Mild to mod atrophy. White matter changes suggestive but nonspecific for chronic microvascular changes. (see full report) ECHO RAÚL negative x 3 Cardio consult, Dr. Lira, help appreciated (2) HTN Assessment and Plan: Hydralazine 10 mg IVP TID Continue to monitor (3) Renal insufficiency Assessment and Plan: patient with outpatient visit in 2013 for CKD stage 4- patient unaware of renal problems Nephro consult, Dr. Fry, help appreciated renal US: medical renal disease urine sodium 59 creatinine 49.1 osmolality 294 24h urine protein 3060 NS 100cc/hr (4) Anemia Assessment and Plan: Likely chronic, secondary to chronic kidney disease patient states history of blood problem, does not know what iron 58 TIBC 298 ferritin 16.5 retic count 0.7 (5) HLD Assessment and Plan: Crestor 5 mg PO HS (6) CAD Assessment and Plan: ASA 81 mg PO daily Crestor 5 mg PO HS Plavix 75 mg PO daily (7) Prophylactic measure Assessment and Plan: SCDs protonix Heparin fall precautions Contacted [facility] ([address] [place] [address]) home medications obtained and added to patient summary: Simvastatin 20 mg PO daily, ASA 81 mg PO daily, Plavix 75 mg PO daily, Metoprolol 25 mg PO BID <Shashi Mooney - Last Filed: 01/10/17 12:45> Objective - Vital Signs/Intake and Output Vital Signs (last 24 hours): Temp Pulse Resp BP Pulse Ox 98.1 F 87 20 170/70 H 98 12/09/16 08:22 12/09/16 08:22 12/09/16 08:22 12/09/16 08:22 12/09/16 08:22 - Labs Labs: 12/09/16 07:51 12/09/16 07:51 Attending/Attestation - Attestation I have personally seen and examined this patient.: Yes I have fully participated in the care of the patient.: Yes I have reviewed all pertinent clinical information, including history, physical exam and plan: Yes Notes (Text): Patient seen and examined with the resident. Agree with the resident's evaluation, assessment and plan. (1) Syncope Assessment and Plan: CT head: no acute intracranial abnormality. Chronic microvascular changes. Focal hypodensities in posterior left cerebellum possibly due to chronic infarct (see full report) EKG NSR @ 85, possible old inferior [place] orthostats Q4H Orthostats were positive so NS 500 cc bolus then repeat cartoid US: negative (see full report) MRI brain: no acute pathology, lesion, or mass effect. Mild to mod atrophy. White matter changes suggestive but nonspecific for chronic microvascular changes. (see full report) ECHO RAÚL negative x 3 Cardio consult, Dr. Lira, help appreciated (2) HTN Assessment and Plan: Hydralazine 10 mg IVP TID Continue to monitor (3) Renal insufficiency Assessment and Plan: patient with outpatient visit in 2013 for CKD stage 4- patient unaware of renal problems Nephro consult, Dr. Fry, help appreciated renal US: medical renal disease urine sodium 59 creatinine 49.1 osmolality 294 24h urine protein 3060 NS 100cc/hr
--- NOTE | 2016-12-07 19:13 | CP.PCM.PN ---
Subjective - Date & Time of Evaluation Date of Evaluation: 12/07/16 Time of Evaluation: 19:10 - Subjective Subjective: Feeling ok, No new episodes of dizziness or syncope. Objective - Vital Signs/Intake and Output Vital Signs (last 24 hours): Temp Pulse Resp BP Pulse Ox 97.4 F L 80 20 147/74 98 12/07/16 16:00 12/07/16 16:00 12/07/16 16:00 12/07/16 14:02 12/07/16 16:00 - Medications Medications: Current Medications Aspirin (Ecotrin) 81 mg PO DAILY [facility] Last Admin: 12/07/16 09:17 Dose: 81 mg Clopidogrel Bisulfate (Plavix) 75 mg PO DAILY [facility] Last Admin: 12/07/16 09:17 Dose: 75 mg Famotidine (Pepcid) 20 mg PO DAILY [facility] Last Admin: 12/07/16 09:17 Dose: 20 mg Heparin Sodium (Porcine) (Heparin) 5,000 units SC Q12 [facility] Last Admin: 12/07/16 09:17 Dose: 5,000 units Hydralazine HCl (Apresoline) 10 mg IVP TID [facility] Last Admin: 12/07/16 17:46 Dose: 10 mg Sodium Chloride (Sodium Chloride 0.9%) 1,000 mls @ 100 mls/hr IV .Q10H [facility] Last Admin: 12/07/16 14:03 Dose: 100 mls/hr Pneumococcal Polyvalent Vaccine (Pneumovax 23 Vaccine) 0.5 ml IM .ONCE ONE Stop: 12/08/16 10:01 Rosuvastatin Calcium (Crestor) 5 mg PO HS [facility] Last Admin: 12/06/16 22:24 Dose: 5 mg - Labs Labs: 12/07/16 11:21 12/07/16 11:21 - Head Exam Head Exam: NORMOCEPHALIC - Neck Exam Neck Exam: Normal Inspection - Respiratory Exam Respiratory Exam: NORMAL BREATHING PATTERN - Cardiovascular Exam Cardiovascular Exam: REGULAR RHYTHM - Extremities Exam Extremities Exam: Normal Inspection - Neurological Exam Neurological Exam: Oriented x3 Assessment and Plan (1) HTN (hypertension) Assessment & Plan: BP better controlled, continue current regimen. Status: Acute (2) Syncope Assessment & Plan: No new episodes, most likely secondary to electrolyte abnormality. Status: Acute (3) CAD (coronary artery disease) Assessment & Plan: Stable, no chest pain, continue DAPT. Further cardiac work-up when renal function is stabilized. Status: Acute
[2016-12-08] MEDS: Sodium Chloride 0.9% 1,000 ML IV SCH ×3 (03:53→19:00)
[2016-12-08 06:52] LABS: BASO % 0.3 % (0.0-2.0); EOS # 0.2 K/uL (0.0-0.7); EOS % 3.9 % (0.0-4.0); HEMATOCRIT 27.1 % (35.0-51.0); LYMPH # 0.8 K/uL (1.0-4.3); LYMPH % 13.7 % (20.0-40.0); MEAN CELL VOLUME 90.4 fL (80.0-94.0); MEAN CORPUSCULAR HEMOGLOBIN 29.1 pg (27.0-31.0); MEAN CORPUSCULAR HGB CONC 32.2 g/dL (33.0-37.0); MEAN PLATELET VOLUME 10.8 fL (7.2-11.7); MONO # 0.5 K/uL (0.0-0.8); MONO % 8.2 % (0.0-10.0); RED CELL DISTRIBUTION WIDTH 14.7 % (11.5-14.5); WHITE BLOOD COUNT 5.7 K/uL (4.8-10.8)
[2016-12-08 07:08] LABS: CHLORIDE 113 mmol/L (98-107); SODIUM 141 mmol/L (132-148)
[2016-12-08 07:10] LABS: GFR AFRICAN-AMERICAN 17
[2016-12-08 07:11] LABS: ALB/GLOB RATIO 1.1 (1.0-2.1); ALKALINE PHOSPHATASE 76 U/L (38-126); ALT/SGPT 17 U/L (21-72); AST/SGOT 19 U/L (17-59); BILIRUBIN,TOTAL < 0.1 mg/dL (0.2-1.3); BLOOD UREA NITROGEN 44 mg/dL (9-20); CALCIUM 7.1 mg/dl (8.6-10.4); CARBON DIOXIDE 19 mmol/L (22-30); GLUCOSE,RANDOM 156 mg/dL (75-110)
[2016-12-08] MEDS: Pneumococcal 23-Valent Vaccine IM ONE ×2 (09:45)
--- NOTE | 2016-12-08 15:49 | CP.PCM.PN ---
<GosiaMike - Last Filed: 12/08/16 16:50> Subjective - Date & Time of Evaluation Date of Evaluation: 12/08/16 Time of Evaluation: 07:10 - Subjective Subjective: PGY-1 Medicine Progress Note for Dr. Mooney Patient seen and examined at bedside. No acute event overnight. Patient resting in bed comfortably. Patient has no complaints today. He is tolerating diet. Denied fever/chills, cp, sob, headache, palpitations, abd pain, n/v/d. Objective - Vital Signs/Intake and Output Vital Signs (last 24 hours): Temp Pulse Resp BP Pulse Ox 98.1 F 98 H 20 164/72 H 97 12/08/16 15:39 12/08/16 15:39 12/08/16 15:39 12/08/16 15:39 12/08/16 15:39 Intake and Output: 12/08/16 12/08/16 06:59 18:59 Intake Total 2790 Output Total 2200 Balance 590 - Medications Medications: Current Medications Aspirin (Ecotrin) 81 mg PO DAILY [facility] Last Admin: 12/08/16 09:44 Dose: 81 mg Clopidogrel Bisulfate (Plavix) 75 mg PO DAILY [facility] Last Admin: 12/08/16 09:45 Dose: 75 mg Famotidine (Pepcid) 20 mg PO DAILY [facility] Last Admin: 12/08/16 09:44 Dose: 20 mg Heparin Sodium (Porcine) (Heparin) 5,000 units SC Q12 [facility] Last Admin: 12/08/16 09:44 Dose: 5,000 units Hydralazine HCl (Apresoline) 10 mg IVP TID [facility] Last Admin: 12/08/16 14:51 Dose: 10 mg Sodium Chloride (Sodium Chloride 0.9%) 1,000 mls @ 125 mls/hr IV .Q8H [facility] Last Admin: 12/08/16 11:40 Dose: Not Given Rosuvastatin Calcium (Crestor) 5 mg PO HS [facility] Last Admin: 12/07/16 21:16 Dose: 5 mg - Labs Labs: 12/08/16 06:43 12/08/16 06:43 - Constitutional Appears: No Acute Distress - Head Exam Head Exam: ATRAUMATIC, NORMOCEPHALIC - Eye Exam Eye Exam: EOMI, Normal appearance Pupil Exam: NORMAL ACCOMODATION, PERRL - ENT Exam ENT Exam: Mucous Membranes Moist - Neck Exam Neck Exam: Normal Inspection - Respiratory Exam Respiratory Exam: Clear to Ausculation Bilateral, NORMAL BREATHING PATTERN - Cardiovascular Exam Cardiovascular Exam: REGULAR RHYTHM, +S1, +S2 - GI/Abdominal Exam GI & Abdominal Exam: Soft, Normal Bowel Sounds. absent: Tenderness - Extremities Exam Extremities Exam: Normal Capillary Refill. absent: Calf Tenderness - Back Exam Back Exam: absent: CVA tenderness (L), CVA tenderness (R) - Neurological Exam Neurological Exam: Alert, Awake, CN II-XII Intact, Oriented x3 - Psychiatric Exam Psychiatric exam: Normal Affect, Normal Mood - Skin Skin Exam: Dry, Intact, Normal Color, Warm Assessment and Plan - Assessment and Plan (Free Text) Plan: (1) Syncope Assessment and Plan: CT head: no acute intracranial abnormality. Chronic microvascular changes. Focal hypodensities in posterior left cerebellum possibly due to chronic infarct (see full report) EKG NSR @ 85, possible old inferior MT orthostats Q4H Orthostats were positive again today cartoid US: negative (see full report) MRI brain: no acute pathology, lesion, or mass effect. Mild to mod atrophy. White matter changes suggestive but nonspecific for chronic microvascular changes. (see full report) ECHO RAÚL negative x 3 Cardio consult, Dr. Lira, help appreciated NS 125 cc/hr (2) HTN Assessment and Plan: Hydralazine 10 mg IVP TID Continue to monitor (3) Renal insufficiency Assessment and Plan: patient with outpatient visit in 2013 for CKD stage 4- patient unaware of renal problems Nephro consult, Dr. Fry, help appreciated renal US: medical renal disease urine sodium 59 creatinine 49.1 osmolality 294 24h urine protein 3060 NS 125 cc/hr (4) Anemia Assessment and Plan: Likely chronic, secondary to chronic kidney disease patient states history of blood problem, does not know what iron 58 TIBC 298 ferritin 16.5 retic count 0.7 (5) HLD Assessment and Plan: Crestor 5 mg PO HS (6) CAD Assessment and Plan: ASA 81 mg PO daily Crestor 5 mg PO HS Plavix 75 mg PO daily (7) Prophylactic measure Assessment and Plan: SCDs protonix Heparin fall precautions Contacted [facility] ([address] [place] [address]) home medications obtained and added to patient summary: Simvastatin 20 mg PO daily, ASA 81 mg PO daily, Plavix 75 mg PO daily, Metoprolol 25 mg PO BID <Shashi Mooney - Last Filed: 01/10/17 13:07> Objective - Vital Signs/Intake and Output Vital Signs (last 24 hours): Temp Pulse Resp BP Pulse Ox 98.1 F 87 20 170/70 H 98 12/09/16 08:22 12/09/16 08:22 12/09/16 08:22 12/09/16 08:22 12/09/16 08:22 - Labs Labs: 12/09/16 07:51 12/09/16 07:51 Attending/Attestation - Attestation I have personally seen and examined this patient.: Yes I have fully participated in the care of the patient.: Yes I have reviewed all pertinent clinical information, including history, physical exam and plan: Yes Notes (Text): Patient seen and examined with the resident. Agree with the resident's evaluation, assessment and plan. (1) Syncope Assessment and Plan: CT head: no acute intracranial abnormality. Chronic microvascular changes. Focal hypodensities in posterior left cerebellum possibly due to chronic infarct (see full report) EKG NSR @ 85, possible old inferior MT orthostats Q4H Orthostats were positive again today cartoid US: negative (see full report) MRI brain: no acute pathology, lesion, or mass effect. Mild to mod atrophy. White matter changes suggestive but nonspecific for chronic microvascular changes. (see full report) ECHO RAÚL negative x 3 Cardio consult, Dr. Lira, help appreciated NS 125 cc/hr (2) HTN Assessment and Plan: Hydralazine 10 mg IVP TID Continue to monitor (3) Renal insufficiency Assessment and Plan: patient with outpatient visit in 2013 for CKD stage 4- patient unaware of renal problems Nephro consult, Dr. Fry, help appreciated renal US: medical renal disease urine sodium 59 creatinine 49.1 osmolality 294 24h urine protein 3060 NS 125 cc/hr
--- NOTE | 2016-12-08 16:26 | CP.PCM.PN ---
Subjective - Date & Time of Evaluation Date of Evaluation: 12/08/16 Time of Evaluation: 03:00 - Subjective Subjective: Appears comfortable Objective - Vital Signs/Intake and Output Vital Signs (last 24 hours): Temp Pulse Resp BP Pulse Ox 98.1 F 98 H 20 164/72 H 97 12/08/16 15:39 12/08/16 15:39 12/08/16 15:39 12/08/16 15:39 12/08/16 15:39 Intake and Output: 12/08/16 12/08/16 06:59 18:59 Intake Total 2790 15147 Output Total 2200 Balance 590 [id number] - Medications Medications: Current Medications Aspirin (Ecotrin) 81 mg PO DAILY [facility] Last Admin: 12/08/16 09:44 Dose: 81 mg Clopidogrel Bisulfate (Plavix) 75 mg PO DAILY [facility] Last Admin: 12/08/16 09:45 Dose: 75 mg Famotidine (Pepcid) 20 mg PO DAILY [facility] Last Admin: 12/08/16 09:44 Dose: 20 mg Heparin Sodium (Porcine) (Heparin) 5,000 units SC Q12 [facility] Last Admin: 12/08/16 09:44 Dose: 5,000 units Hydralazine HCl (Apresoline) 10 mg IVP TID [facility] Last Admin: 12/08/16 14:51 Dose: 10 mg Sodium Chloride (Sodium Chloride 0.9%) 1,000 mls @ 125 mls/hr IV .Q8H [facility] Last Admin: 12/08/16 11:40 Dose: Not Given Rosuvastatin Calcium (Crestor) 5 mg PO HS [facility] Last Admin: 12/07/16 21:16 Dose: 5 mg - Labs Labs: 12/08/16 06:43 12/08/16 06:43 - Respiratory Exam Additional comments: Lungs clear - Cardiovascular Exam Cardiovascular Exam: REGULAR RHYTHM - Extremities Exam Additional comments: No pedal edema Assessment and Plan - Assessment and Plan (Free Text) Assessment: Acute on CRF. Some more improvement in BUN/Creat Proteinuria ?Etiologies. Serologies pending Orthostatic hypotension Plan: Continue current Mx Monitor renal function
[2016-12-09 02:02] VITALS: O2SAT 98
[2016-12-09] MEDS: Sodium Chloride 0.9% 1,000 ML IV SCH (04:11)
[2016-12-09 08:07] LABS: BASO % 0.4 % (0.0-2.0); EOS # 0.3 K/uL (0.0-0.7); EOS % 5.8 % (0.0-4.0); HEMATOCRIT 27.5 % (35.0-51.0); LYMPH % 20.5 % (20.0-40.0); MEAN CELL VOLUME 90.8 fL (80.0-94.0); MEAN CORPUSCULAR HEMOGLOBIN 28.7 pg (27.0-31.0); MEAN CORPUSCULAR HGB CONC 31.6 g/dL (33.0-37.0); MEAN PLATELET VOLUME 10.4 fL (7.2-11.7); MONO # 0.4 K/uL (0.0-0.8); MONO % 9.2 % (0.0-10.0); RED CELL DISTRIBUTION WIDTH 14.9 % (11.5-14.5); WHITE BLOOD COUNT 4.8 K/uL (4.8-10.8)
--- NOTE | 2016-12-09 08:11 | CP.PCM.PN ---
Subjective - Date & Time of Evaluation Date of Evaluation: 12/09/16 Time of Evaluation: 08:11 - Subjective Subjective: Feeling better. no chest pain or episodes of syncope. Objective - Vital Signs/Intake and Output Vital Signs (last 24 hours): Temp Pulse Resp BP Pulse Ox 97.9 F 85 20 167/75 H 98 12/09/16 04:00 12/09/16 04:08 12/09/16 04:00 12/09/16 04:00 12/08/16 23:10 Intake and Output: 12/09/16 12/09/16 06:59 18:59 Intake Total 925 Output Total 500 Balance 425 - Medications Medications: Current Medications Aspirin (Ecotrin) 81 mg PO DAILY [facility] Last Admin: 12/08/16 09:44 Dose: 81 mg Clopidogrel Bisulfate (Plavix) 75 mg PO DAILY [facility] Last Admin: 12/08/16 09:45 Dose: 75 mg Famotidine (Pepcid) 20 mg PO DAILY [facility] Last Admin: 12/08/16 09:44 Dose: 20 mg Heparin Sodium (Porcine) (Heparin) 5,000 units SC Q12 [facility] Last Admin: 12/08/16 21:11 Dose: 5,000 units Hydralazine HCl (Apresoline) 10 mg IVP TID [facility] Last Admin: 12/08/16 17:59 Dose: 10 mg Sodium Chloride (Sodium Chloride 0.9%) 1,000 mls @ 125 mls/hr IV .Q8H [facility] Last Admin: 12/09/16 04:11 Dose: 125 mls/hr Rosuvastatin Calcium (Crestor) 5 mg PO HS [facility] Last Admin: 12/08/16 21:12 Dose: 5 mg - Labs Labs: 12/09/16 07:51 12/08/16 06:43 - Head Exam Head Exam: NORMOCEPHALIC - Neck Exam Neck Exam: Normal Inspection - Respiratory Exam Respiratory Exam: NORMAL BREATHING PATTERN - Cardiovascular Exam Cardiovascular Exam: REGULAR RHYTHM - Extremities Exam Extremities Exam: Normal Inspection - Neurological Exam Neurological Exam: Oriented x3 Assessment and Plan (1) HTN (hypertension) Assessment & Plan: Orthostatic hypotension? will consider pressure stockings and monitor 2 4BP monitoring as out patient. Status: Acute (2) Syncope Assessment & Plan: No new episodes. telemetry benign. May D/C telemetry. Status: Acute (3) CAD (coronary artery disease) Assessment & Plan: CAD is stable and continue DAPT. If discharged will follow as out patient in office next Tuesday. Status: Acute
[2016-12-09 08:12] LABS: POTASSIUM 4.7 mmol/L (3.6-5.2)
[2016-12-09 08:14] LABS: BILIRUBIN,TOTAL 0.2 mg/dL (0.2-1.3); TOTAL PROTEIN 6.4 g/dL (6.3-8.3)
[2016-12-09 08:15] LABS: CALCIUM 7.3 mg/dl (8.6-10.4)
[2016-12-09 08:23] VITALS: BP 170/70; PULSE 87; TEMP 98.1
--- NOTE | 2016-12-09 08:34 | CARD ---
APPROVED REPORT EKG Measurement Heart [id number] <Conclusion> Normal sinus rhythm Inferior infarct, age undetermined Abnormal ECG
--- NOTE | 2016-12-09 11:52 | CP.PCM.DIS ---
<Mike Elise - Last Filed: 01/26/17 07:48> Provider - Provider Date of Admission: 12/05/16 20:11 Attending physician: Jovanni Kirby MD Consults: Nephro: Lisandra Cardio: Pankaj Time Spent in preparation of Discharge (in minutes): 40 Diagnosis - Discharge Diagnosis (1) Syncope Status: Acute (2) HTN (hypertension) Status: Acute (3) Renal insufficiency Status: Acute (4) Anemia Status: Chronic (5) CAD (coronary artery disease) Status: Acute (6) HLD (hyperlipidemia) Status: Chronic Hospital Course - Lab Results Lab Results: Most Recent Lab Values WBC 4.8 K/uL (4.8-10.8) 12/09/16 07:51 RBC 3.03 Mil/uL (4.40-5.90) L 12/09/16 07:51 Hgb 8.7 g/dL (12.0-18.0) L 12/09/16 07:51 Hct 27.5 % (35.0-51.0) L 12/09/16 07:51 MCV 90.8 fL (80.0-94.0) 12/09/16 07:51 MCH 28.7 pg (27.0-31.0) 12/09/16 07:51 MCHC 31.6 g/dL (33.0-37.0) L 12/09/16 07:51 RDW 14.9 % (11.5-14.5) H 12/09/16 07:51 Plt Count 126 K/uL (130-400) L 12/09/16 07:51 MPV 10.4 fL (7.2-11.7) 12/09/16 07:51 Neut % (Auto) 64.1 % (50.0-75.0) 12/09/16 07:51 Lymph % (Auto) 20.5 % (20.0-40.0) 12/09/16 07:51 [place] % (Auto) 9.2 % (0.0-10.0) 12/09/16 07:51 Eos % (Auto) 5.8 % (0.0-4.0) H 12/09/16 07:51 Baso % (Auto) 0.4 % (0.0-2.0) 12/09/16 07:51 Neut # 3.1 K/uL (1.8-7.0) 12/09/16 07:51 Lymph # 1.0 K/uL (1.0-4.3) 12/09/16 07:51 [place] # 0.4 K/uL (0.0-0.8) 12/09/16 07:51 Eos # 0.3 K/uL (0.0-0.7) 12/09/16 07:51 Baso # 0.0 K/uL (0.0-0.2) 12/09/16 07:51 Differential Comment 12/09/16 07:51 ESR 48 mm/hr (0-15) H 12/07/16 11:21 Retic Count 0.7 % (0.5-1.5) 12/05/16 22:35 Sodium 142 mmol/L (132-148) 12/09/16 07:51 Potassium 4.7 mmol/L (3.6-5.2) 12/09/16 07:51 Chloride 113 mmol/L (98-107) H 12/09/16 07:51 Carbon Dioxide 20 mmol/L (22-30) L 12/09/16 07:51 Anion Gap 14 (10-20) 12/09/16 07:51 BUN 34 mg/dL (9-20) H 12/09/16 07:51 Creatinine 3.8 MG/DL (0.8-1.5) H 12/09/16 07:51 Est GFR ( Amer) 19 12/09/16 07:51 Est GFR (Non-Af Amer) 16 12/09/16 07:51 POC Glucose (mg/dL) 97 mg/dL (65-110) 12/05/16 16:11 Random Glucose 76 mg/dL (75-110) 12/09/16 07:51 Hemoglobin A1c 6.1 % (4.2-6.5) 12/06/16 06:11 Serum Osmolality 315 mosm/kg (272-300) H 12/05/16 22:35 Calcium 7.3 mg/dl (8.6-10.4) L 12/09/16 07:51 Phosphorus 5.6 mg/dL (2.5-4.5) H 12/06/16 06:11 Iron 58 ug/dL (49-181) 12/05/16 22:35 TIBC 298 ug/dL (250-450) 12/05/16 22:35 % Saturation 19 (20-55) L 12/05/16 22:35 Ferritin 16.5 ng/mL 12/05/16 22:35 Total Bilirubin 0.2 mg/dL (0.2-1.3) 12/09/16 07:51 AST 23 U/L (17-59) 12/09/16 07:51 ALT 15 U/L (21-72) L 12/09/16 07:51 Alkaline Phosphatase 59 U/L (38-126) 12/09/16 07:51 Total Creatine Kinase 149 U/L (55-170) 12/06/16 06:11 CK-MB (Mass) 1.58 ng/mL (0.0-3.38) 12/06/16 06:11 Troponin I 0.0160 ng/mL (0.00-0.120) 12/05/16 17:01 Troponin I, Quant 0.0360 ng/mL (0.00-0.120) 12/06/16 06:11 Total Protein 6.4 g/dL (6.3-8.3) 12/09/16 07:51 Albumin 3.2 g/dL (3.5-5.0) L 12/09/16 07:51 Globulin 3.2 gm/dL (2.2-3.9) 12/09/16 07:51 Albumin/Globulin Ratio 1.0 (1.0-2.1) 12/09/16 07:51 Triglycerides 143 mg/dL (0-149) 12/06/16 06:11 Cholesterol 141 mg/dL (0-199) 12/06/16 06:11 LDL Cholesterol Direct 63 mg/dL (0-129) 12/06/16 06:11 HDL Cholesterol 39 mg/dL (30-70) 12/06/16 06:11 Thyroxine (T4) 4.21 ug/dL (5.5-11.0) L 12/06/16 06:11 TSH 3rd Generation 2.32 mIU/L (0.46-4.68) 12/06/16 06:11 Urine Color Straw (YELLOW) 12/07/16 16:50 Urine Clarity Clear (Clear) 12/07/16 16:50 Urine pH 5.0 (5.0-8.0) 12/07/16 16:50 Ur Specific [place] 1.009 (1.003-1.030) 12/07/16 16:50 Urine Protein 2+ mg/dL (NEGATIVE) H 12/07/16 16:50 Urine Glucose (UA) 2+ mg/dL (Normal) H 12/07/16 16:50 Urine Ketones Negative mg/dL (NEGATIVE) 12/07/16 16:50 Urine Blood Negative (NEGATIVE) 12/07/16 16:50 Urine Nitrate Negative (NEGATIVE) 12/07/16 16:50 Urine Bilirubin Negative (NEGATIVE) 12/07/16 16:50 Urine Urobilinogen Normal mg/dL (0.2-1.0) 12/07/16 16:50 Ur Leukocyte Esterase Neg Wil/uL (Negative) 12/07/16 16:50 Urine WBC (Auto) < 1 /hpf (0-5) 12/07/16 16:50 Urine RBC (Auto) < 1 /hpf (0-3) 12/07/16 16:50 Urine Bacteria Rare (<OCC) 12/07/16 16:50 Urine Osmolality 294 mosm/kg (300-1000) L 12/05/16 22:35 Ur Random Creatinine 49.1 mg/dL 12/07/16 07:29 Ur Random Sodium 59 mmol/L 12/07/16 07:29 Urine Collection Time 24 HRS 12/07/16 07:32 Urine Total Volume 3000 mL 12/07/16 07:32 Ur Protein 24 Hr Calc 3060.0 mg/24hr (42-225) H 12/07/16 07:32 Stool Occult Blood Negative (NEGATIVE) 12/05/16 21:11 Urine Opiates Screen Negative (NEGATIVE) 12/07/16 07:29 Urine Methadone Screen Negative (NEGATIVE) 12/07/16 07:29 Ur Barbiturates Screen Negative (NEGATIVE) 12/07/16 07:29 Ur Phencyclidine Scrn Negative (NEGATIVE) 12/07/16 07:29 Ur Amphetamines Screen Negative (NEGATIVE) 12/07/16 07:29 U Benzodiazepines Scrn Negative (NEGATIVE) 12/07/16 07:29 U Oth Cocaine Metabols Negative (NEGATIVE) 12/07/16 07:29 U Cannabinoids Screen Negative (NEGATIVE) 12/07/16 07:29 SHA 6 Profile Negative (NEGATIVE) 12/07/16 13:52 Double Strand DNA Ab 13 IU/mL (()) H 12/07/16 13:52 - Hospital Course Hospital Course: 71 year old male with past medical history of HTN, HLD who presents to the ER after syncopal episode. Interview conducted with video manager vehicle Sarah # [id number]. Patient states that he was walking around doing errands when he suddenly felt very tired like he could fall asleep at that moment. Patient denies dizziness or lightheadedness at that time but admits to diaphoresis and feeling hot. Patient states that he held himself up against a wall because he felt like he would fall to the ground. He states that a bystander saw him looking unwell and asked if he needed an ambulance. Patient states he told the bystander he did not feel well and so was brought by ambulance to the ED. Patient reports a similar episode 2 weeks ago and a few years ago. Patient states that when this sensation occurred 2 weeks ago he was home and did nothing as he assumed the sensation would pass, which it did. Patient denies seeking medical attention for this issue 2 weeks ago. Patient states that when this happened several years ago he was told he had some type of blockage in an artery and he went to see a instrument mechanic. Patient denies cardiac catheterization and states he cannot explain how the doctor knew he had a blockage. Patient denies headache, dizziness/ lightheadedness, fatigue, visual changes, dyspnea/ dyspnea on exertion, cough, leg swelling, orthopnea, weight or appetite changes. Patient currently asymptomatic. Patient denies loss of consciousness. Patient was admitted to telemetry for Syncope. Patietn was also found to have renal insufficency and Anemia. Cardiology and Nephrology were consulted. Orthostatics were positive. CT head was ordered and showed no acute intracranial abnormality. Chronic microvascular changes. Focal hypodensities in posterior left cerebellum possibly due to chronic infarct (see full report). EKG on admission revealed NSR @ 85, possible old inferior CO. Cartoid US was negative (see full report) while MRI brain demonstrated no acute pathology, lesion, or mass effect. Mild to mod atrophy. White matter changes suggestive but nonspecific for chronic microvascular changes. (see full report). Patient was placed on fluids as well as hydralazine to control BP. Patient remained in the hospital for 4 days until he was asymptomatic. He was deemed medically stable for discharge by Dr. Mooney on 12/09. Patient was instructed to stop taking his metoprolol and recommended to follow up with PMD, cardio, and nephro withi 2-3 days of discharge. (This is a summary of the hospital course. Please refer to EMR for more specific details.) Discharge Exam - Head Exam Head Exam: ATRAUMATIC, NORMOCEPHALIC - Eye Exam Eye Exam: EOMI, Normal appearance Pupil Exam: PERRL - ENT Exam ENT Exam: Mucous Membranes Moist - Respiratory Exam Respiratory Exam: Clear to PA & Lateral, NORMAL BREATHING PATTERN - Cardiovascular Exam Cardiovascular Exam: REGULAR RHYTHM, +S1, +S2 - GI/Abdominal Exam GI & Abdominal Exam: Normal Bowel Sounds, Soft. absent: Tenderness - Extremities Exam Extremities exam: normal capillary refill, pedal pulses present - Back Exam Back exam: absent: CVA tenderness (L), CVA tenderness (R) - Neurological Exam Neurological exam: Alert, CN II-XII Intact, Normal Gait, Oriented x3 - Psychiatric Exam Psychiatric exam: Normal Affect, Normal Mood - Skin Skin Exam: Dry, Intact, Normal Color, Warm Discharge Plan - Follow Up Plan Condition: GOOD Disposition: HOME/ ROUTINE Instructions: Syncope (DC), Acute Coronary Syndrome (DC), Chronic Hypertension (DC), Anemia (DC) Additional Instructions: Patient medically stable for discharge to home by Dr. Mooney. Patient has no new medication to take. Patient to stop taking Metoprolol 25 mg. Patient is to resume ASA, simvastatin, and plavix as previously prescribed. Patient is to follow up with PMD, Cardio (Pankaj) and Nephro (Lisandra) within 2-3 days of discharge. Patient may resume physical activity as tolerated. Please return to ED if symptoms persist or condition worsens. All instructions stated above were discussed with patient in detail. He verbalized understanding and agreement. Referrals: Adilene Fry MD [Staff Provider] - Tawana Lira MD [Staff Provider] - Uriel Vergara Jr., MD [Medical Doctor] - <Shashi Mooney - Last Filed: 01/26/17 10:49> Provider - Provider Date of Admission: 12/05/16 20:11 Attending physician: Jovanni Kirby MD Hospital Course - Lab Results Lab Results: Most Recent Lab Values WBC 4.8 K/uL (4.8-10.8) 12/09/16 07:51 RBC 3.03 Mil/uL (4.40-5.90) L 12/09/16 07:51 Hgb 8.7 g/dL (12.0-18.0) L 12/09/16 07:51 Hct 27.5 % (35.0-51.0) L 12/09/16 07:51 MCV 90.8 fL (80.0-94.0) 12/09/16 07:51 MCH 28.7 pg (27.0-31.0) 12/09/16 07:51 MCHC 31.6 g/dL (33.0-37.0) L 12/09/16 07:51 RDW 14.9 % (11.5-14.5) H 12/09/16 07:51 Plt Count 126 K/uL (130-400) L 12/09/16 07:51 MPV 10.4 fL (7.2-11.7) 12/09/16 07:51 Neut % (Auto) 64.1 % (50.0-75.0) 12/09/16 07:51 Lymph % (Auto) 20.5 % (20.0-40.0) 12/09/16 07:51 [place] % (Auto) 9.2 % (0.0-10.0) 12/09/16 07:51 Eos % (Auto) 5.8 % (0.0-4.0) H 12/09/16 07:51 Baso % (Auto) 0.4 % (0.0-2.0) 12/09/16 07:51 Neut # 3.1 K/uL (1.8-7.0) 12/09/16 07:51 Lymph # 1.0 K/uL (1.0-4.3) 12/09/16 07:51 [place] # 0.4 K/uL (0.0-0.8) 12/09/16 07:51 Eos # 0.3 K/uL (0.0-0.7) 12/09/16 07:51 Baso # 0.0 K/uL (0.0-0.2) 12/09/16 07:51 Differential Comment 12/09/16 07:51 ESR 48 mm/hr (0-15) H 12/07/16 11:21 Retic Count 0.7 % (0.5-1.5) 12/05/16 22:35 Sodium 142 mmol/L (132-148) 12/09/16 07:51 Potassium 4.7 mmol/L (3.6-5.2) 12/09/16 07:51 Chloride 113 mmol/L (98-107) H 12/09/16 07:51 Carbon Dioxide 20 mmol/L (22-30) L 12/09/16 07:51 Anion Gap 14 (10-20) 12/09/16 07:51 BUN 34 mg/dL (9-20) H 12/09/16 07:51 Creatinine 3.8 MG/DL (0.8-1.5) H 12/09/16 07:51 Est GFR ( Amer) 19 12/09/16 07:51 Est GFR (Non-Af Amer) 16 12/09/16 07:51 POC Glucose (mg/dL) 97 mg/dL (65-110) 12/05/16 16:11 Random Glucose 76 mg/dL (75-110) 12/09/16 07:51 Hemoglobin A1c 6.1 % (4.2-6.5) 12/06/16 06:11 Serum Osmolality 315 mosm/kg (272-300) H 12/05/16 22:35 Calcium 7.3 mg/dl (8.6-10.4) L 12/09/16 07:51 Phosphorus 5.6 mg/dL (2.5-4.5) H 12/06/16 06:11 Iron 58 ug/dL (49-181) 12/05/16 22:35 TIBC 298 ug/dL (250-450) 12/05/16 22:35 % Saturation 19 (20-55) L 12/05/16 22:35 Ferritin 16.5 ng/mL 12/05/16 22:35 Total Bilirubin 0.2 mg/dL (0.2-1.3) 12/09/16 07:51 AST 23 U/L (17-59) 12/09/16 07:51 ALT 15 U/L (21-72) L 12/09/16 07:51 Alkaline Phosphatase 59 U/L (38-126) 12/09/16 07:51 Total Creatine Kinase 149 U/L (55-170) 12/06/16 06:11 CK-MB (Mass) 1.58 ng/mL (0.0-3.38) 12/06/16 06:11 Troponin I 0.0160 ng/mL (0.00-0.120) 12/05/16 17:01 Troponin I, Quant 0.0360 ng/mL (0.00-0.120) 12/06/16 06:11 Total Protein 6.4 g/dL (6.3-8.3) 12/09/16 07:51 Albumin 3.2 g/dL (3.5-5.0) L 12/09/16 07:51 Globulin 3.2 gm/dL (2.2-3.9) 12/09/16 07:51 Albumin/Globulin Ratio 1.0 (1.0-2.1) 12/09/16 07:51 Triglycerides 143 mg/dL (0-149) 12/06/16 06:11 Cholesterol 141 mg/dL (0-199) 12/06/16 06:11 LDL Cholesterol Direct 63 mg/dL (0-129) 12/06/16 06:11 HDL Cholesterol 39 mg/dL (30-70) 12/06/16 06:11 Thyroxine (T4) 4.21 ug/dL (5.5-11.0) L 12/06/16 06:11 TSH 3rd Generation 2.32 mIU/L (0.46-4.68) 12/06/16 06:11 Urine Color Straw (YELLOW) 12/07/16 16:50 Urine Clarity Clear (Clear) 12/07/16 16:50 Urine pH 5.0 (5.0-8.0) 12/07/16 16:50 Ur Specific [place] 1.009 (1.003-1.030) 12/07/16 16:50 Urine Protein 2+ mg/dL (NEGATIVE) H 12/07/16 16:50 Urine Glucose (UA) 2+ mg/dL (Normal) H 12/07/16 16:50 Urine Ketones Negative mg/dL (NEGATIVE) 12/07/16 16:50 Urine Blood Negative (NEGATIVE) 12/07/16 16:50 Urine Nitrate Negative (NEGATIVE) 12/07/16 16:50 Urine Bilirubin Negative (NEGATIVE) 12/07/16 16:50 Urine Urobilinogen Normal mg/dL (0.2-1.0) 12/07/16 16:50 Ur Leukocyte Esterase Neg Wil/uL (Negative) 12/07/16 16:50 Urine WBC (Auto) < 1 /hpf (0-5) 12/07/16 16:50 Urine RBC (Auto) < 1 /hpf (0-3) 12/07/16 16:50 Urine Bacteria Rare (<OCC) 12/07/16 16:50 Urine Osmolality 294 mosm/kg (300-1000) L 12/05/16 22:35 Ur Random Creatinine 49.1 mg/dL 12/07/16 07:29 Ur Random Sodium 59 mmol/L 12/07/16 07:29 Urine Collection Time 24 HRS 12/07/16 07:32 Urine Total Volume 3000 mL 12/07/16 07:32 Urine Chloride 60 mmol/L (32-290) 12/07/16 21:31 Ur Protein 24 Hr Calc 3060.0 mg/24hr (42-225) H 12/07/16 07:32 Stool Occult Blood Negative (NEGATIVE) 12/05/16 21:11 Urine Opiates Screen Negative (NEGATIVE) 12/07/16 07:29 Urine Methadone Screen Negative (NEGATIVE) 12/07/16 07:29 Ur Barbiturates Screen Negative (NEGATIVE) 12/07/16 07:29 Ur Phencyclidine Scrn Negative (NEGATIVE) 12/07/16 07:29 Ur Amphetamines Screen Negative (NEGATIVE) 12/07/16 07:29 U Benzodiazepines Scrn Negative (NEGATIVE) 12/07/16 07:29 U Oth Cocaine Metabols Negative (NEGATIVE) 12/07/16 07:29 U Cannabinoids Screen Negative (NEGATIVE) 12/07/16 07:29 Serum Immunofixation See note (()) 12/07/16 13:52 Urine Immunofixation See note 12/07/16 21:31 SHA 6 Profile Negative (NEGATIVE) 12/07/16 13:52 ANCA Screen Negative (NEGATIVE) 12/07/16 13:52 c-ANCA Titer TNP 12/07/16 13:52 Proteinase 3 (PR3) <1.0 AI (<1.0) 12/07/16 13:52 p-ANCA Titer TNP 12/07/16 13:52 Atypical p-ANCA Titer TNP 12/07/16 13:52 Myeloperoxidase Ab <1.0 AI (<1.0) 12/07/16 13:52 Double Strand DNA Ab 13 IU/mL (()) H 12/07/16 13:52 Glomerular Base Mem IgG <1.0 AI (<1.0) 12/07/16 13:52 Attending/Attestation - Attestation I have personally seen and examined this patient.: Yes I have fully participated in the care of the patient.: Yes I have reviewed all pertinent clinical information, including history, physical exam and plan: Yes Notes (Text): Patient Seen and examined with the resident. Agree with the resident's evaluation, assessment and plan. Patient was admitted to telemetry for Syncope. Patietn was also found to have renal insufficency and Anemia. Cardiology and Nephrology were consulted. Orthostatics were positive. CT head was ordered and showed no acute intracranial abnormality. Chronic microvascular changes. Focal hypodensities in posterior left cerebellum possibly due to chronic infarct (see full report). EKG on admission revealed NSR @ 85, possible old inferior CO. Cartoid US was negative (see full report) while MRI brain demonstrated no acute pathology, lesion, or mass effect. Mild to mod atrophy. White matter changes suggestive but nonspecific for chronic microvascular changes. (see full report). Patient was placed on fluids as well as hydralazine to control BP. Patient remained in the hospital for 4 days until he was asymptomatic.
--- NOTE | 2016-12-09 12:27 | CP.PCM.PN ---
Subjective - Date & Time of Evaluation Date of Evaluation: 12/09/16 Time of Evaluation: 12:00 - Subjective Subjective: Fels better Comfortable supine Objective - Vital Signs/Intake and Output Vital Signs (last 24 hours): Temp Pulse Resp BP Pulse Ox 98.1 F 87 20 170/70 H 98 12/09/16 08:22 12/09/16 08:22 12/09/16 08:22 12/09/16 08:22 12/09/16 08:22 Intake and Output: 12/09/16 12/09/16 06:59 18:59 Intake Total 2045 Output Total 500 Balance 1545 - Medications Medications: Current Medications Aspirin (Ecotrin) 81 mg PO DAILY [facility] Last Admin: 12/09/16 09:29 Dose: 81 mg Clopidogrel Bisulfate (Plavix) 75 mg PO DAILY [facility] Last Admin: 12/09/16 09:29 Dose: 75 mg Famotidine (Pepcid) 20 mg PO DAILY [facility] Last Admin: 12/09/16 09:29 Dose: 20 mg Heparin Sodium (Porcine) (Heparin) 5,000 units SC Q12 [facility] Last Admin: 12/09/16 09:34 Dose: 5,000 units Hydralazine HCl (Apresoline) 10 mg IVP TID [facility] Last Admin: 12/09/16 09:29 Dose: 10 mg Sodium Chloride (Sodium Chloride 0.9%) 1,000 mls @ 125 mls/hr IV .Q8H [facility] Last Admin: 12/09/16 04:11 Dose: 125 mls/hr Rosuvastatin Calcium (Crestor) 5 mg PO HS [facility] Last Admin: 12/08/16 21:12 Dose: 5 mg - Labs Labs: 12/09/16 07:51 12/09/16 07:51 - Respiratory Exam Additional comments: Lungs clear - Cardiovascular Exam Cardiovascular Exam: REGULAR RHYTHM - Extremities Exam Additional comments: No edema or cyanosis Assessment and Plan - Assessment and Plan (Free Text) Assessment: Acute kidney ijury. renal function continues to improve Proteinuria sDNA positive in high titer. Other serologies pending S/P syncopeOrthostatic hypotension Plan: Continue to monitor renal function Will need kidney Bx
--- NOTE | 2016-12-10 07:44 | CARD ---
APPROVED REPORT EXAM: Two-dimensional and M-mode echocardiogram with Doppler and color Doppler. Other Information Quality : GoodRhythm : INDICATION Syncope RISK FACTORS Hypertension Hyperlipidemia M-Mode DIMENSIONS RVDd2.15 (2.1-3.2cm)Left Atrium (MM)4.41 (2.5-4.0cm) IVSd0.90 (0.7-1.1cm)Aortic Root2.71 (2.2-3.7cm) LVDd5.48 (4.0-5.6cm)Aortic Cusp Exc.1.91 (1.5-2.0cm) PWd0.62 (0.7-1.1cm)FS (%) 18 % LVDs4.51 (2.0-3.8cm)LVEF (%)36 (>50%) Aortic Valve AoV Peak Cyhzarnu782.9cm/Rico Peak GR.13mmHg Mitral Valve MV E Oeytgorg53.9cm/sMV A Vebvusab205.7cm/sE/A ratio0.6 TDI E/Lateral E'0.0E/Medial E'0.0 Tricuspid Valve TR Peak Rpivhbmz404cf/sTR Peak Gr.59wmEuYGJL83pmRh LEFT VENTRICLE The Left Ventricle is mildly dilated. There is normal left ventricular wall thickness. Left ventricle systolic function is moderately to severely impaired. The Ejection Fraction is 30-35%. No regional wall motion abnormalities noted. The left ventricular diastolic function is normal. No left ventricle thrombus noted on this study. There is no ventricular septal defect visualized. There is no left ventricular aneurysm. There is no mass noted in the left ventricle. RIGHT VENTRICLE The right ventricle is normal size. There is normal right ventricular wall thickness. The right ventricular systolic function is normal. ATRIA The left atrium is moderately dilated. The right atrium size is normal. The interatrial septum is intact with no evidence for an atrial septal defect. AORTIC VALVE The aortic valve is normal in structure and function. There is mild to moderate aortic regurgitation. There is no aortic valvular stenosis. There is no aortic valvular vegetation. MITRAL VALVE The mitral valve is normal in structure and function. There is no evidence of mitral valve prolapse. There is no mitral valve stenosis. Mitral regurgitation is moderate. TRICUSPID VALVE The tricuspid valve is normal in structure and function. There is mild tricuspid regurgitation. Right ventricular systolic pressure is estimated at 30-40 mmHg. There is mild pulmonary hypertension. There is no tricuspid valve prolapse or vegetation. There is no tricuspid valve stenosis. PULMONIC VALVE The pulmonary valve is normal in structure and function. There is no pulmonic valvular regurgitation. There is no pulmonic valvular stenosis. GREAT VESSELS The aortic root is normal in size. The ascending aorta is normal in size. The pulmonary artery is normal. The IVC is normal in size and collapses >50% with inspiration. PERICARDIAL EFFUSION The pericardium appears normal. There is no pleural effusion. <Conclusion> The Left Ventricle is mildly dilated. There is normal left ventricular wall thickness. Left ventricle systolic function is moderately to severely impaired. The Ejection Fraction is 30-35%. The right ventricular systolic function is normal. The left atrium is moderately dilated. There is mild to moderate aortic regurgitation. Mitral regurgitation is moderate. Right ventricular systolic pressure is estimated at 30-40 mmHg.
[2016-12-12 11:22] LABS: CHLORIDE URINE 60 mmol/L (32-290)
== END 2016-12-09 13:34 | disposition home or self-care (01) | DRG 684 ==
LOC: C.ER 16:01 → C.9E 20:11 → C.6T 21:38
PROVIDERS: ADMIT Family Medicine; ATTEND Family Medicine
DX: N17.9 Acute kidney failure, unspecified (principal); I12.9 Hypertensive chronic kidney disease with stage 1 through stage 4 chronic kidney disease, or unspecified chronic kidney disease; E78.5 Hyperlipidemia, unspecified; N18.4 Chronic kidney disease, stage 4 (severe); D64.9 Anemia, unspecified; I25.10 Atherosclerotic heart disease of native coronary artery without angina pectoris; Z79.02 Long term (current) use of antithrombotics/antiplatelets; Z86.73 Personal history of transient ischemic attack (TIA), and cerebral infarction without residual deficits

== ENCOUNTER 2017-12-02 01:57 | Inpatient (IN) | payer MEDICARE ==
[2017-12-02 02:29] LABS: BASO % 0.5 % (0.0-2.0); HEMOGLOBIN 9.1 g/dL (12.0-18.0); LYMPH # 0.4 K/uL (1.0-4.3); LYMPH % 4.3 % (20.0-40.0); MEAN CORPUSCULAR HEMOGLOBIN 29.6 pg (27.0-31.0); MEAN CORPUSCULAR HGB CONC 32.9 g/dL (33.0-37.0); MEAN PLATELET VOLUME 10.7 fL (7.2-11.7); MONO # 0.6 K/uL (0.0-0.8); MONO % 5.4 % (0.0-10.0); NEUT # 9.2 K/uL (1.8-7.0); NEUT % 89.8 % (50.0-75.0); PLATELET COUNT 239 K/uL (130-400); RBC 3.08 Mil/uL (4.40-5.90); RED CELL DISTRIBUTION WIDTH 14.3 % (11.5-14.5); WHITE BLOOD COUNT 10.3 K/uL (4.8-10.8)
[2017-12-02 02:52] LABS: BANDS 2 % (0-2); LYMPHOCYTE 5 % (20-40); MONOCYTE 6 % (0-10); NEUTROPHIL 87 % (50-75); TOTAL CELLS COUNTED 100
[2017-12-02 02:53] LABS: ANISOCYTOSIS SLIGHT; PLATELET ESTIMATE NORMAL (NORMAL); POIKILOCYTOSIS SLIGHT
[2017-12-02 03:02] LABS: INR 1.1; PROTHROMBIN TIME 11.8 SECONDS (9.7-12.2)
--- NOTE | 2017-12-02 03:09 | C.PDOC ---
History Of Present Illness Patient BIBA for evaluation of worsening SOB over the past 2 days. Patient denies chest pain, cough, fever, abdominal pain, nausea/vomiting, palpitations. PMHx of HTN, hyperlipidemia, CAD with stent. As per EMS, POx was in 70s when they arrived. Time Seen by Provider: 12/02/17 02:04 Chief Complaint (Nursing): Respiratory Distress History Per: Patient, EMS History/Exam Limitations: clinical condition (2 days) Current Respiratory Medications: See Home Med List Past Medical History Reviewed: Historical Data, Nursing Documentation, Vital Signs Vital Signs: Last Vital Signs Temp 97.9 F 12/02/17 02:06 Pulse 90 12/02/17 03:15 Resp 22 12/02/17 03:15 BP 131/64 12/02/17 03:15 Pulse Ox 97 12/02/17 03:37 - Medical History PMH: HTN, Hypercholesterolemia Family History: States: No Known Family Hx - Social History Hx Alcohol Use: Yes Hx Substance Use: No - Immunization History Hx Tetanus Toxoid Vaccination: No (not sure) Hx Influenza Vaccination: Yes (not sure) Hx Pneumococcal Vaccination: Yes (not sure) Review Of Systems Except As Marked, All Systems Reviewed And Found Negative. Constitutional: Negative for: Fever, Chills Cardiovascular: Negative for: Chest Pain, Palpitations Respiratory: Positive for: Shortness of Breath. Negative for: Cough Gastrointestinal: Negative for: Nausea, Vomiting, Abdominal Pain Skin: Negative for: Rash Physical Exam - Physical Exam Appears: In Acute Distress (in mild to moderate respiratory distress) Skin: Normal Color, Warm, Dry Oral Mucosa: Moist Cardiovascular: Rhythm Regular Respiratory: Accessory Muscle Use (mild to moderate), Rales (B/L bases), No Rhonchi Gastrointestinal/Abdominal: Normal Exam, Bowel Sounds, Soft, No Tenderness Extremity: Pedal Edema (trace pitting edema B/L LEs), No Calf Tenderness Pulses: Left Dorsalis Pedis: Normal, Right Dorsalis Pedis: Normal Neurological/Psych: Oriented x3 ED Course And Treatment - Laboratory Results Result Diagrams: 12/02/17 02:24 12/02/17 02:24 ECG: Interpreted By Me, Viewed By Me (NSR 94 bpm, normal axis, Q waves II, III, no acute ST changes) ECG Interpretation: Abnormal O2 Sat by Pulse Oximetry: 97 (NRB) Pulse Ox Interpretation: Normal Progress Note: Patient placed on Bipap emergently. Blood work, EKG, CXR ordered and reviewed. repeat EKG- NSR 90 bpm, normal axis, Q waves II, III, aVF , no acu6te ST changes. 3:45AM - Spoke with glue plant operator covering Dr. Lira, is aware if patient with CHF and elevated troponin going to ICU - requests admission to medicine. Disposition - Disposition Forms: [facility] ([place])
[2017-12-02 03:10] LABS: ALB/GLOB RATIO 0.9 (1.0-2.1); ALBUMIN 4.1 g/dL (3.5-5.0); CALCIUM 7.1 mg/dl (8.6-10.4); CK-MB 18.8 ng/mL (0.0-3.38); TROPONIN I 7.18 ng/mL (0.00-0.120)
[2017-12-02] MEDS ORDERED: Heparin25000 units/250ml 1/2NS 25,000 UNITS/250 ML BAG IV PRN (05:13)
--- NOTE | 2017-12-02 05:37 | CP.PCM.CON ---
Addendum entered and electronically signed by Alonzo Macias DO 12/02/17 16:06: Patient admitted with NSTEMI and acute on chronic renal failure. Vascular surgery to place dialysis catheter today. Patient consented for dialysis by nephrology and is to receive one session today and one tomorrow. Per cardiology , we will keep trending the troponins until they downtrend. Once downtrending and if patient remains free of chest pain, heparin drip may be discontinued. Plan is for cardiac cath on Tuesday followed by another dialysis session. Original Note: History of Present Illness - History of Present Illness History of Present Illness: 72 M with h/o htn, cri, chf, low ef, AR/MR, pulm htn, ?PCI 5-6 yrs ago, came to the hospital with c/o sob gradual for last 2 days, severe prior to coming. Patient needed to be put on bipap on arrival, CXR showed pulm venous congestion and early pulm edema, labs revealed creat of 8, trop of 7, bicarb of 12, potassium 5.6, patient was otherwise almost euvolemic. EKG showed Q waves in inferior lead, lvh strain pattern in lateral leads, LA enlargement, sinus. With bipap 50% fio2 he improved. PMH as above, ? eye surg Meds details not known Allergies NKDA Social denies smoking, alcohol, illicit drugs Family history not contributory Review of Systems - Review of Systems All systems: reviewed and no additional remarkable complaints except (HPI) Past Patient History - Infectious Disease Hx of Infectious Diseases: None - Past Social History Smoking Status: Never Smoked Alcohol: None Drugs: Denies Home Situation {Lives}: Alone Domestic Violence: Negative - CARDIAC Hx Hypercholesterolemia: Yes Hx Hypertension: Yes - RENAL Other/Comment: RENAL INSUFFICIENCY - MUSCULOSKELETAL/RHEUMATOLOGICAL Hx Falls: No - PSYCHIATRIC Hx Substance Use: No - SURGICAL HISTORY Hx Cardiac Catheterization: Yes (1 STENT) - ANESTHESIA Hx Anesthesia: No Meds Allergies/Adverse Reactions: Allergies Allergy/AdvReac Type Severity Reaction Status Date / Time No Known Allergies Allergy Verified 12/02/17 02:03 - Medications Medications: Current Medications Aspirin (Aspirin Chewable) 81 mg PO DAILY SO Carvedilol (Coreg) 3.125 mg PO BID SO Clopidogrel Bisulfate (Plavix) 75 mg PO DAILY SO Famotidine (Pepcid) 20 mg PO DAILY SO Furosemide (Lasix) 40 mg IVP Q12 SO Heparin Sodium/Sodium Chloride (Heparin 25703 Units/250ml 1/2 Normal Saline) 25 ,000 units in 250 mls @ 7.947 mls/hr IV .Q24H PRN; Protocol; 12 UNITS/KG/HR PRN Reason: ADJUST RATE PER PROTOCOL Physical Exam - Additional Findings Additional findings: * HEENT FORTUNATO * Neck supple * Chest rales b/l, slight b/l ronchi * CVS regular, no gallop or rub * PA soft, nt bs present * Ext no edema * Skin normal turgor * [employer] INST[employer]ER alert oriented x3 no fnd, Results - Vital Signs Recent Vital Signs: Last Vital Signs Temp 98 F 12/02/17 04:03 Pulse 88 12/02/17 04:03 Resp 18 12/02/17 04:03 BP 137/71 12/02/17 04:03 Pulse Ox 96 12/02/17 04:03 - Labs Result Diagrams: 12/02/17 02:24 12/02/17 02:24 Labs: Laboratory Results - last 24 hr 12/02/17 12/02/17 12/02/17 02:17 02:24 02:24 WBC 10.3 D RBC 3.08 L Hgb 9.1 L Hct 27.7 L MCV 90.0 D MCH 29.6 MCHC 32.9 L RDW 14.3 Plt Count 239 MPV 10.7 Neut % (Auto) 89.8 H Lymph % (Auto) 4.3 L [place] % (Auto) 5.4 Eos % (Auto) 0.0 Baso % (Auto) 0.5 Neut # (Auto) 9.2 H Lymph # (Auto) 0.4 L [place] # (Auto) 0.6 Eos # (Auto) 0.0 Baso # (Auto) 0.0 Neutrophils % (Manual) 87 H Band Neutrophils % 2 Lymphocytes % (Manual) 5 L Monocytes % (Manual) 6 Platelet Estimate Normal Poikilocytosis (manual Slight Anisocytosis (manual) Slight PT INR APTT Sodium 142 Potassium 5.6 H Chloride 107 Carbon Dioxide 12 L Anion Gap 29 H BUN 89 H Creatinine 8.0 H* Est GFR ( Amer) 8 Est GFR (Non-Af Amer) 7 POC Glucose (mg/dL) 207 H Random Glucose 188 H Calcium 7.1 L Total Bilirubin 0.8 AST 57 ALT 22 Alkaline Phosphatase 118 Total Creatine Kinase 478 H CK-MB (Mass) 18.8 H Troponin I 7.1800 H* NT-Pro-B Natriuret Pep 15005 H Total Protein 8.9 H Albumin 4.1 Globulin 4.7 H Albumin/Globulin Ratio 0.9 L 12/02/17 02:29 WBC RBC Hgb Hct MCV MCH MCHC RDW Plt Count MPV Neut % (Auto) Lymph % (Auto) [place] % (Auto) Eos % (Auto) Baso % (Auto) Neut # (Auto) Lymph # (Auto) [place] # (Auto) Eos # (Auto) Baso # (Auto) Neutrophils % (Manual) Band Neutrophils % Lymphocytes % (Manual) Monocytes % (Manual) Platelet Estimate Poikilocytosis (manual Anisocytosis (manual) PT 11.8 INR 1.1 APTT 27 Sodium Potassium Chloride Carbon Dioxide Anion Gap BUN Creatinine Est GFR ( Amer) Est GFR (Non-Af Amer) POC Glucose (mg/dL) Random Glucose Calcium Total Bilirubin AST ALT Alkaline Phosphatase Total Creatine Kinase CK-MB (Mass) Troponin I NT-Pro-B Natriuret Pep Total Protein Albumin Globulin Albumin/Globulin Ratio Assessment & Plan - Assessment and Plan (Free Text) Assessment: * NSTEMI with pulm edema * H/o low ef, AR, MR, pulm htn * MESSI with acidosis, mild hyperkalemia Plan: * Serial troponin if rising will confirm acute AL rather elevated tni with chf * ASA, plavix, coreg, heparin drip, crestor * Gi prophylaxis * Patient doesn't know the names of his president and chief commercial officer pmd will find out this am, patient will need HD and then possible cath or viseversa * See orders for details continue lasix iv till pulm edema and sob improves * Due to pulm edema could not give any bicarb * See orders for detail.
--- NOTE | 2017-12-02 07:12 | RAD ---
Chest x-ray single frontal view History: Shortness of breath. Comparison: 12/05/2016 Findings: Prominent increased interstitial lung markings bilaterally with more confluent airspace consolidative changes seen within the left mid as well as the right mid to lower lung zones. This may represent moderate to severe venous congestion with superimposed edema and or infiltrate. Clinical correlation. Cardiomegaly. Degenerative changes in the spine and shoulders. Impression: Prominent increased interstitial lung markings bilaterally with more confluent airspace consolidative changes seen within the left mid as well as the right mid to lower lung zones. This may represent moderate to severe venous congestion with superimposed edema and or infiltrate. Clinical correlation. Cardiomegaly.
[2017-12-02] MEDS ORDERED: (Novolog) Insulin Aspart, Recombinant 100 u/ml 10 ml vial SC ONE (09:41)
[2017-12-02 10:21] LABS: CALCIUM 7.1 mg/dl (8.6-10.4); CK-MB 14.3 ng/mL (0.0-3.38); TROPONIN I 9.95 ng/mL (0.00-0.120)
--- NOTE | 2017-12-02 14:13 | CP.PCM.CON ---
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 Patient needed to be put on bipap on arrival, CXR showed pulm venous congestion - pulm edema, labs revealed creat of 8, trop of 7 , bicarb of 12, potassium 5.6. EKG showed Q waves in inferior lead, lvh strain pattern in lateral leads, LA enlargement, sinus. With bipap 50% fio2 he improved. PMH as above, ? eye surg Meds details not known Allergies NKDA Social denies smoking, alcohol, illicit drugs Family history not contributory Review of Systems - Constitutional Constitutional: Fatigue, Weakness - EENT Eyes: absent: As Per HPI, Blind Spots, Blurred Vision, Change in Vision, Decreased Night Vision, Diplopia, Discharge, Dry Eye, Exophthalmos, Floaters, Irritation, Itchy Eyes, Loss of Peripheral Vision, Pain, Photophobia, Requires Corrective Lenses, Sees Flashes, Spots in Vision, Tunnel Vision, Other Visual Disturbances, Loss of Vision, Other Ears: absent: As Per HPI, Decreased Hearing, Ear Discharge, Ear Pain, Tinnitus, Abnormal Hearing, Disequilibrium, Dizziness, Other Nose/Mouth/Throat: absent: As Per HPI, Epistaxis, Nasal Congestion, Nasal Discharge, Nasal Obstruction, Nasal Trauma, Nose Pain, Post Nasal Drip, Sinus Pain, Sinus Pressure, Bleeding Gums, Change in Voice, Dental Pain, Dry Mouth, Dysphagia, Halitosis, Hoarsness, Lip Swelling, Mouth Lesions, Mouth Pain, Odynophagia, Sore Throat, Throat Swelling, Tongue Swelling, Facial Pain, Neck Pain, Neck Mass, Other - Cardiovascular Cardiovascular: Dyspnea on Exertion, Lightheadedness - Respiratory Respiratory: Cough, Dyspnea on Exertion - Gastrointestinal Gastrointestinal: Nausea, Vomiting - Genitourinary Genitourinary: As Per HPI - Musculoskeletal Musculoskeletal: Muscle Cramps, Muscle Weakness, Myalgias - Neurological Neurological: Weakness Past Patient History - Infectious Disease Hx of Infectious Diseases: None - Past Medical History & Family History Past Medical History?: Yes - Past Social History Smoking Status: Never Smoked Chewing Tobacco Use: No Cigar Use: No Alcohol: None Drugs: Denies Home Situation {Lives}: Alone Domestic Violence: Negative - CARDIAC Hx Hypercholesterolemia: Yes Hx Hypertension: Yes - PULMONARY Hx Chronic Obstructive Pulmonary Disease (COPD): Yes - RENAL Other/Comment: RENAL INSUFFICIENCY - HEMATOLOGICAL/ONCOLOGICAL Hx Anemia: Yes - MUSCULOSKELETAL/RHEUMATOLOGICAL Hx Falls: No - PSYCHIATRIC Hx Substance Use: No - SURGICAL HISTORY Hx Cardiac Catheterization: Yes (1 STENT) - ANESTHESIA Hx Anesthesia: No Meds Allergies/Adverse Reactions: Allergies Allergy/AdvReac Type Severity Reaction Status Date / Time No Known Allergies Allergy Verified 12/02/17 02:03 - Medications Medications: Current Medications Aspirin (Aspirin Chewable) 81 mg PO DAILY SO Carvedilol (Coreg) 3.125 mg PO BID SO Clopidogrel Bisulfate (Plavix) 75 mg PO DAILY SO Famotidine (Pepcid) 20 mg PO DAILY SO Furosemide (Lasix) 40 mg IVP Q12 SO Heparin Sodium/Sodium Chloride (Heparin 33622 Units/250ml 1/2 Normal Saline) 25 ,000 units in 250 mls @ 9.271 mls/hr IV .Q24H PRN; Protocol; 14 UNITS/KG/HR PRN Reason: ADJUST RATE PER PROTOCOL Physical Exam - Constitutional Appears: In Acute Distress, Chronically Ill - Head Exam Head Exam: ATRAUMATIC, NORMAL INSPECTION - Eye Exam Eye Exam: EOMI, Normal appearance - Neck Exam Neck exam: Positive for: Normal Inspection. Negative for: Tenderness - Respiratory Exam Respiratory Exam: Rhonchi, Respiratory Distress - Cardiovascular Exam Cardiovascular Exam: REGULAR RHYTHM, +S1 - GI/Abdominal Exam GI & Abdominal Exam: Soft. absent: Tenderness - Extremities Exam Extremities exam: Positive for: normal inspection. Negative for: pedal edema - Neurological Exam Neurological exam: CN II-XII Intact, Oriented x3 - Skin Skin Exam: Dry, Warm Results - Vital Signs Recent Vital Signs: Last Vital Signs Temp 98 F 12/02/17 04:03 Pulse 86 12/02/17 13:48 Resp 16 12/02/17 07:10 BP 126/66 12/02/17 07:01 Pulse Ox 98 12/02/17 07:10 - Labs Result Diagrams: 12/02/17 02:24 12/02/17 09:33 Labs: Laboratory Results - last 24 hr 12/02/17 12/02/17 12/02/17 02:17 02:24 02:24 WBC 10.3 D RBC 3.08 L Hgb 9.1 L Hct 27.7 L MCV 90.0 D MCH 29.6 MCHC 32.9 L RDW 14.3 Plt Count 239 MPV 10.7 Neut % (Auto) 89.8 H Lymph % (Auto) 4.3 L [place] % (Auto) 5.4 Eos % (Auto) 0.0 Baso % (Auto) 0.5 Neut # (Auto) 9.2 H Lymph # (Auto) 0.4 L [place] # (Auto) 0.6 Eos # (Auto) 0.0 Baso # (Auto) 0.0 Neutrophils % (Manual) 87 H Band Neutrophils % 2 Lymphocytes % (Manual) 5 L Monocytes % (Manual) 6 Platelet Estimate Normal Poikilocytosis (manual Slight Anisocytosis (manual) Slight PT INR APTT Sodium 142 Potassium 5.6 H Chloride 107 Carbon Dioxide 12 L Anion Gap 29 H BUN 89 H Creatinine 8.0 H* Est GFR ( Amer) 8 Est GFR (Non-Af Amer) 7 POC Glucose (mg/dL) 207 H Random Glucose 188 H Calcium 7.1 L Total Bilirubin 0.8 AST 57 ALT 22 Alkaline Phosphatase 118 Total Creatine Kinase 478 H CK-MB (Mass) 18.8 H Troponin I 7.1800 H* NT-Pro-B Natriuret Pep 96490 H Total Protein 8.9 H Albumin 4.1 Globulin 4.7 H Albumin/Globulin Ratio 0.9 L 12/02/17 12/02/17 12/02/17 02:29 09:33 12:41 WBC RBC Hgb Hct MCV MCH MCHC RDW Plt Count MPV Neut % (Auto) Lymph % (Auto) [place] % (Auto) Eos % (Auto) Baso % (Auto) Neut # (Auto) Lymph # (Auto) [place] # (Auto) Eos # (Auto) Baso # (Auto) Neutrophils % (Manual) Band Neutrophils % Lymphocytes % (Manual) Monocytes % (Manual) Platelet Estimate Poikilocytosis (manual Anisocytosis (manual) PT 11.8 INR 1.1 APTT 27 42 H D Sodium 143 Potassium 4.8 Chloride 108 H Carbon Dioxide 15 L Anion Gap 25 H BUN 100 H* Creatinine 8.0 H* Est GFR ( Amer) 8 Est GFR (Non-Af Amer) 7 POC Glucose (mg/dL) Random Glucose 130 H Calcium 7.1 L Total Bilirubin AST ALT Alkaline Phosphatase Total Creatine Kinase 414 H CK-MB (Mass) 14.3 H Troponin I 9.9500 H* NT-Pro-B Natriuret Pep Total Protein Albumin Globulin Albumin/Globulin Ratio Assessment & Plan (1) Hypertensive chronic kidney disease with stage 5 chronic kidney disease or end stage renal disease Status: Acute (2) HLD (hyperlipidemia) Status: Acute (3) Uremia Status: Acute (4) CAD (coronary artery disease) Status: Acute - Assessment and Plan (Free Text) Plan: Dialysis as pt with CHF, metabolic acidosis, hyperkalemia, severe azotemia
--- NOTE | 2017-12-02 15:52 | CP.PCM.CON ---
History of Present Illness - History of Present Illness History of Present Illness: Patient who is a elderly male with history of CAD, CHF, CRI and diabetes who presented with NSTEMI and CHF and renal insufficiency. Past Patient History - Infectious Disease Hx of Infectious Diseases: None - Past Medical History & Family History Past Medical History?: Yes - Past Social History Smoking Status: Never Smoked Chewing Tobacco Use: No Cigar Use: No Alcohol: None Drugs: Denies Home Situation {Lives}: Alone Domestic Violence: Negative - CARDIAC Hx Hypercholesterolemia: Yes Hx Hypertension: Yes - PULMONARY Hx Chronic Obstructive Pulmonary Disease (COPD): Yes - RENAL Other/Comment: RENAL INSUFFICIENCY - HEMATOLOGICAL/ONCOLOGICAL Hx Anemia: Yes - MUSCULOSKELETAL/RHEUMATOLOGICAL Hx Falls: No - PSYCHIATRIC Hx Substance Use: No - SURGICAL HISTORY Hx Cardiac Catheterization: Yes (1 STENT) - ANESTHESIA Hx Anesthesia: No Meds Allergies/Adverse Reactions: Allergies Allergy/AdvReac Type Severity Reaction Status Date / Time No Known Allergies Allergy Verified 12/02/17 02:03 - Medications Medications: Current Medications Aspirin (Aspirin Chewable) 81 mg PO DAILY SO Carvedilol (Coreg) 3.125 mg PO BID SO Clopidogrel Bisulfate (Plavix) 75 mg PO DAILY SO Famotidine (Pepcid) 20 mg PO DAILY SO Furosemide (Lasix) 40 mg IVP Q12 SO Heparin Sodium/Sodium Chloride (Heparin 20229 Units/250ml 1/2 Normal Saline) 25 ,000 units in 250 mls @ 9.271 mls/hr IV .Q24H PRN; Protocol; 14 UNITS/KG/HR PRN Reason: ADJUST RATE PER PROTOCOL Physical Exam - Head Exam Head Exam: NORMOCEPHALIC - Neck Exam Neck exam: Positive for: Normal Inspection - Respiratory Exam Respiratory Exam: Decreased Breath Sounds - Cardiovascular Exam Cardiovascular Exam: REGULAR RHYTHM, Systolic Murmur - Extremities Exam Extremities exam: Positive for: normal inspection - Neurological Exam Neurological exam: Alert, Oriented x3 Results - Vital Signs Recent Vital Signs: Last Vital Signs Temp 98.7 F 12/02/17 12:00 Pulse 78 12/02/17 15:01 Resp 15 12/02/17 15:01 BP 123/78 12/02/17 15:01 Pulse Ox 100 12/02/17 15:01 - Labs Result Diagrams: 12/02/17 02:24 12/02/17 09:33 Labs: Laboratory Results - last 24 hr 12/02/17 12/02/17 12/02/17 02:17 02:24 02:24 WBC 10.3 D RBC 3.08 L Hgb 9.1 L Hct 27.7 L MCV 90.0 D MCH 29.6 MCHC 32.9 L RDW 14.3 Plt Count 239 MPV 10.7 Neut % (Auto) 89.8 H Lymph % (Auto) 4.3 L [place] % (Auto) 5.4 Eos % (Auto) 0.0 Baso % (Auto) 0.5 Neut # (Auto) 9.2 H Lymph # (Auto) 0.4 L [place] # (Auto) 0.6 Eos # (Auto) 0.0 Baso # (Auto) 0.0 Neutrophils % (Manual) 87 H Band Neutrophils % 2 Lymphocytes % (Manual) 5 L Monocytes % (Manual) 6 Platelet Estimate Normal Poikilocytosis (manual Slight Anisocytosis (manual) Slight PT INR APTT Sodium 142 Potassium 5.6 H Chloride 107 Carbon Dioxide 12 L Anion Gap 29 H BUN 89 H Creatinine 8.0 H* Est GFR ( Amer) 8 Est GFR (Non-Af Amer) 7 POC Glucose (mg/dL) 207 H Random Glucose 188 H Calcium 7.1 L Total Bilirubin 0.8 AST 57 ALT 22 Alkaline Phosphatase 118 Total Creatine Kinase 478 H CK-MB (Mass) 18.8 H Troponin I 7.1800 H* NT-Pro-B Natriuret Pep 52828 H Total Protein 8.9 H Albumin 4.1 Globulin 4.7 H Albumin/Globulin Ratio 0.9 L 12/02/17 12/02/17 12/02/17 02:29 09:33 12:41 WBC RBC Hgb Hct MCV MCH MCHC RDW Plt Count MPV Neut % (Auto) Lymph % (Auto) [place] % (Auto) Eos % (Auto) Baso % (Auto) Neut # (Auto) Lymph # (Auto) [place] # (Auto) Eos # (Auto) Baso # (Auto) Neutrophils % (Manual) Band Neutrophils % Lymphocytes % (Manual) Monocytes % (Manual) Platelet Estimate Poikilocytosis (manual Anisocytosis (manual) PT 11.8 INR 1.1 APTT 27 42 H D Sodium 143 Potassium 4.8 Chloride 108 H Carbon Dioxide 15 L Anion Gap 25 H BUN 100 H* Creatinine 8.0 H* Est GFR ( Amer) 8 Est GFR (Non-Af Amer) 7 POC Glucose (mg/dL) Random Glucose 130 H Calcium 7.1 L Total Bilirubin AST ALT Alkaline Phosphatase Total Creatine Kinase 414 H CK-MB (Mass) 14.3 H Troponin I 9.9500 H* NT-Pro-B Natriuret Pep Total Protein Albumin Globulin Albumin/Globulin Ratio Assessment & Plan (1) HLD (hyperlipidemia) Assessment and Plan: Lipid lowering agents Status: Acute (2) CAD (coronary artery disease) Assessment and Plan: NSTEMI, ACS protocol, Cardiac cath after dialysis and fluid removal. Status: Acute (3) HTN (hypertension) Assessment and Plan: BP Controlled, continue current care. Status: Acute
--- NOTE | 2017-12-02 17:12 | PCM.SURG1 ---
Surgeon's Initial Post Op Note - Surgeon's Notes Surgeon: Dr. Reich [employer] Technical Officer: Dr. Madsen PGY-3 Type of Anesthesia: Local Pre-Operative Diagnosis: Acute Kidney Injury Operative Findings: Informed Consent was obtained and pt was prepped and draped in sterile fashion. 1% lidocaine was used to anesthetize the skin and sub-q tissue. A micropuncture needle was used under US guidance to gain access to the R femoral vein. The tract was dilated and a bigger wire was used for further dilatation of the tract and dual lumen HD catheter was inserted. Both ports were flushed with saline. Catheter was sutured in place and sterile dressing applied. Pt tolerated procedure well. Post-Operative Diagnosis: Same Operation Performed: Insertion of R femoral HD catheter Specimen/Specimens Removed: none Estimated Blood Loss: EBL {In ML}: 10 Blood Products Given: N/A Drains Used: No Drains Post-Op Condition: Good Date of Surgery/Procedure: 12/02/17 Time of Surgery/Procedure: 17:12
[2017-12-02 18:29] LABS: CK-MB 10.1 ng/mL (0.0-3.38); TROPONIN I 9.13 ng/mL (0.00-0.120)
[2017-12-02 18:39] LABS: HEPATITIS B SURFACE AG Negative (NEGATIVE)
[2017-12-02 18:45] LABS: FERRITIN 17.2 ng/mL; HEPATITIS B CORE AB NEGATIVE (NEGATIVE)
[2017-12-02 18:57] LABS: HEPATITIS C ANTIBODY NEGATIVE (NEGATIVE)
--- NOTE | 2017-12-02 18:59 | CARD ---
APPROVED REPORT EXAM: Two-dimensional and M-mode echocardiogram with Doppler and color Doppler. Other Information Quality : GoodRhythm : INDICATION Cardiac Disease: CAD Syncope Non STEMI 2D DIMENSIONS IVSd0.9 (0.7-1.1cm)LVDd4.9 (3.9-5.9cm) PWd0.8 (0.7-1.1cm)LVDs4.1 (2.5-4.0cm) FS (%) 15.8 %LVEF (%)35.0 (>50%) M-Mode DIMENSIONS Left Atrium (MM)4.53 (2.5-4.0cm)Aortic Root3.39 (2.2-3.7cm) Aortic Cusp Exc.1.70 (1.5-2.0cm) Mitral Valve MV E [id number]/sMV A Vrbxgwat580.1cm/sE/A ratio1.0 TDI E/Lateral E'0.0E/Medial E'0.0 Tricuspid Valve TR Peak [id number]/sTR Peak Gr.24mmHg LEFT VENTRICLE The Left Ventricle is moderately dilated. There is borderline concentric left ventricular hypertrophy. Left ventricle systolic function is moderately impaired. The Ejection Fraction is 35-40%. Global hypokinesis. Transmitral Doppler flow pattern is Grade II-pseudonormal filling dynamics. Elevated left atrial pressure. RIGHT VENTRICLE The right ventricle is mildly to moderately dilated. Systolic function is mildly reduced. ATRIA The left atrium is moderately dilated. The right atrium is moderately dilated. AORTIC VALVE The aortic valve is calcified but opens well. No aortic regurgitation is present. MITRAL VALVE The mitral valve is normal in structure. Mitral regurgitation is mild. TRICUSPID VALVE The tricuspid valve is normal in structure. There is mild tricuspid regurgitation. Right ventricular systolic pressure is estimated at 30-40 mmHg. There is mild pulmonary hypertension. PULMONIC VALVE The pulmonary valve is normal in structure. There is mild pulmonic valvular regurgitation. GREAT VESSELS The aortic root is normal in size. Dilated IVC with poor inspiration collapse is consistent with elevated right atrial pressure. PERICARDIAL EFFUSION There is no pericardial effusion. <Conclusion> Dilated cardiac chambers Left ventricle systolic function is moderately impaired. The Ejection Fraction is - 35-40%. Transmitral Doppler flow pattern is Grade II-pseudonormal filling dynamics. Elevated left atrial pressure. Right ventricular systolic function is mildly reduced. Mild mitral regurgitation. The aortic valve is calcified but opens well. There is mild tricuspid regurgitation. Right ventricular systolic pressure is estimated at 30-40 mmHg compatible with mild pulmonary hypertension. Dilated IVC with poor inspiration collapse is consistent with elevated right atrial pressure. There is no pericardial effusion.
--- NOTE | 2017-12-02 21:23 | CARD ---
APPROVED REPORT EKG Measurement Heart [id number] <Conclusion> Normal sinus rhythm Possible Left atrial enlargement Left ventricular hypertrophy Possible Inferior infarct, age undetermined Abnormal ECG
--- NOTE | 2017-12-02 21:24 | CARD ---
APPROVED REPORT EKG Measurement Heart [id number] <Conclusion> Normal sinus rhythm Possible Left atrial enlargement Possible Inferior infarct, age undetermined Abnormal ECG
[2017-12-02 23:45] LABS: CK-MB 7.54 ng/mL (0.0-3.38); TROPONIN I 8.64 ng/mL (0.00-0.120)
[2017-12-03 06:16] LABS: BASO % 0.2 % (0.0-2.0); EOS % 0.1 % (0.0-4.0); HEMOGLOBIN 8.7 g/dL (12.0-18.0); LYMPH % 10.1 % (20.0-40.0); MEAN CELL VOLUME 87.3 fL (80.0-94.0); MEAN CORPUSCULAR HEMOGLOBIN 29.3 pg (27.0-31.0); MEAN CORPUSCULAR HGB CONC 33.6 g/dL (33.0-37.0); MEAN PLATELET VOLUME 10.3 fL (7.2-11.7); MONO % 10.3 % (0.0-10.0); NEUT # 7.6 K/uL (1.8-7.0); NEUT % 79.3 % (50.0-75.0); NRBC % 0.2 % (0.0-2.0); RBC 2.98 Mil/uL (4.40-5.90); WHITE BLOOD COUNT 9.6 K/uL (4.8-10.8)
[2017-12-03 06:36] LABS: ALB/GLOB RATIO 0.9 (1.0-2.1); ALBUMIN 3.5 g/dL (3.5-5.0); CALCIUM 7.4 mg/dl (8.6-10.4)
[2017-12-03] MEDS: Heparin25000 units/250ml 1/2NS 25,000 UNITS/250 ML BAG IV PRN (07:57)
--- NOTE | 2017-12-03 08:43 | CP.CCUPN ---
CCU Subjective - Physician Review Events Since Last Encounter (Free Text): 12/03/17 08:43 72-year-old male with a history of hypertension, renal insufficiency, congestive heart failure, pulmonary hypertension and CAD. Admitted to the hospital with a non-ST elevation DC. Patient is also on acute on chronic renal failure On examination: Patient vital signs stable. Blood pressure controlled well. Regular heart sounds. Nontender abdomen. No pedal edema Patient received hemodialysis recently yesterday Assessment and recommendation: 72-year-old male with multiple medical history, CAD, renal insufficiency pulmonary hypertension and congestive heart failure Patient will be monitored in ICU for possible angiogram and cardiac cath by the cardiology and will follow-up the patient CCU Objective - Vital Signs / Intake & Output Vital Signs (Last 4 hours): Vital Signs Pulse Resp BP Pulse Ox 12/03/17 07:10 77 15 100 12/03/17 07:00 72 15 100 12/03/17 06:54 73 15 122/56 L 100 12/03/17 06:50 72 14 100 12/03/17 06:40 73 14 100 12/03/17 06:30 73 15 100 12/03/17 06:20 73 14 100 12/03/17 06:10 75 18 100 12/03/17 06:00 82 17 100 12/03/17 05:54 82 16 133/71 100 12/03/17 05:50 79 17 12/03/17 05:44 80 14 12/03/17 05:30 77 17 96 12/03/17 05:20 76 18 98 12/03/17 05:10 76 18 93 L 12/03/17 05:00 74 16 96 12/03/17 04:54 75 17 128/62 96 12/03/17 04:50 76 17 97 Intake and Output (Last 8hrs): Intake & Output 12/02/17 12/03/17 12/03/17 22:59 06:59 14:59 Intake Total 724.4 1513.6 499.2 Output Total 800 950 Balance -75.6 563.6 499.2 Weight 137 lb 4 oz Intake: IV 250 Intake, IV Amount 64.4 73.6 9.2 Left Antecubital 64.4 73.6 9.2 Oral 660 1440 240 Output: Urine 800 950 Urine, Voided 800 950 Other: # Voids Urine, Voided 1 1 - Medications Active Medications: Active Medications Generic Name Dose Route Start Last Admin Trade Name Freq PRN Reason Stop Dose Admin Aspirin 81 mg 12/02/17 10:00 12/02/17 10:03 Aspirin Chewable PO 81 mg DAILY SO Administration Carvedilol 3.125 mg 12/02/17 10:00 12/02/17 18:29 Coreg PO Not Given BID [facility] Clopidogrel Bisulfate 75 mg 12/02/17 10:00 Plavix PO DAILY [facility] Famotidine 20 mg 12/02/17 10:00 12/02/17 10:03 Pepcid PO 20 mg DAILY SO Administration Furosemide 40 mg 12/02/17 10:00 12/02/17 21:26 Lasix IVP 40 mg Q12 SO Administration Heparin Sodium/Sodium Chloride 25,000 units in 250 mls @ 9.271 mls/hr 14:00 12/03/17 07:57 Heparin 12247 Units/250ml 1/2 Normal Saline IV 14 units/kg/hr .Q24H PRN 9.271 mls/hr ADJUST RATE PER PROTOCOL Administration Protocol 14 UNITS/KG/HR Rosuvastatin Calcium 5 mg 12/02/17 22:00 12/02/17 21:26 Crestor PO 5 mg HS SO Administration - Patient Studies Lab Studies: Lab Studies 12/03/17 12/03/17 12/03/17 Range/Units 06:07 06:07 02:13 WBC 9.6 (4.8-10.8) K/uL RBC 2.98 L (4.40-5.90) Mil/uL Hgb 8.7 L (12.0-18.0) g/dL Hct 26.0 L (35.0-51.0) % MCV 87.3 D (80.0-94.0) fL MCH 29.3 (27.0-31.0) pg MCHC 33.6 (33.0-37.0) g/dL RDW 14.0 (11.5-14.5) % Plt Count 204 (130-400) K/uL MPV 10.3 (7.2-11.7) fL Neut % (Auto) 79.3 H (50.0-75.0) % Lymph % (Auto) 10.1 L (20.0-40.0) % [place] % (Auto) 10.3 H (0.0-10.0) % Eos % (Auto) 0.1 (0.0-4.0) % Baso % (Auto) 0.2 (0.0-2.0) % Neut # (Auto) 7.6 H (1.8-7.0) K/uL Lymph # (Auto) 1.0 (1.0-4.3) K/uL [place] # (Auto) 1.0 H (0.0-0.8) K/uL Eos # (Auto) 0.0 (0.0-0.7) K/uL Baso # (Auto) 0.0 (0.0-0.2) K/uL APTT 46 H D (21-34) SECONDS Sodium 141 (132-148) mmol/L Potassium 3.5 L (3.6-5.2) mmol/L Chloride 100 (98-107) mmol/L Carbon Dioxide 25 (22-30) mmol/L Anion Gap 20 (10-20) BUN 69 H (9-20) mg/dL Creatinine 5.7 H (0.8-1.5) mg/dL Est GFR ( Amer) 12 Est GFR (Non-Af Amer) 10 POC Glucose (mg/dL) (65-110) mg/dL Random Glucose 104 (75-110) mg/dL Calcium 7.4 L (8.6-10.4) mg/dl Phosphorus 4.8 H (2.5-4.5) mg/dL Magnesium 1.8 (1.6-2.3) mg/dL % Saturation (20-55) Ferritin ng/mL Total Bilirubin 0.5 (0.2-1.3) mg/dL AST 33 (17-59) U/L ALT 20 L (21-72) U/L Alkaline Phosphatase 96 (38-126) U/L Total Creatine Kinase (55-170) U/L CK-MB (Mass) (0.0-3.38) ng/mL Troponin I (0.00-0.120) ng/mL Total Protein 7.3 (6.3-8.3) g/dL Albumin 3.5 (3.5-5.0) g/dL Globulin 3.8 (2.2-3.9) gm/dL Albumin/Globulin Ratio 0.9 L (1.0-2.1) Hep Bs Antigen (NEGATIVE) Hep Bs Antibody (NEGATIVE) Hep B Core IgM Ab (NEGATIVE) Hepatitis C Antibody (NEGATIVE) 12/02/17 12/02/17 12/02/17 Range/Units 22:55 22:03 20:00 WBC (4.8-10.8) K/uL RBC (4.40-5.90) Mil/uL Hgb (12.0-18.0) g/dL Hct (35.0-51.0) % MCV (80.0-94.0) fL MCH (27.0-31.0) pg MCHC (33.0-37.0) g/dL RDW (11.5-14.5) % Plt Count (130-400) K/uL MPV (7.2-11.7) fL Neut % (Auto) (50.0-75.0) % Lymph % (Auto) (20.0-40.0) % [place] % (Auto) (0.0-10.0) % Eos % (Auto) (0.0-4.0) % Baso % (Auto) (0.0-2.0) % Neut # (Auto) (1.8-7.0) K/uL Lymph # (Auto) (1.0-4.3) K/uL [place] # (Auto) (0.0-0.8) K/uL Eos # (Auto) (0.0-0.7) K/uL Baso # (Auto) (0.0-0.2) K/uL APTT 52 H D (21-34) SECONDS Sodium (132-148) mmol/L Potassium (3.6-5.2) mmol/L Chloride (98-107) mmol/L Carbon Dioxide (22-30) mmol/L Anion Gap (10-20) BUN (9-20) mg/dL Creatinine (0.8-1.5) mg/dL Est GFR ( Amer) Est GFR (Non-Af Amer) POC Glucose (mg/dL) 133 H (65-110) mg/dL Random Glucose (75-110) mg/dL Calcium (8.6-10.4) mg/dl Phosphorus (2.5-4.5) mg/dL Magnesium (1.6-2.3) mg/dL % Saturation (20-55) Ferritin ng/mL Total Bilirubin (0.2-1.3) mg/dL AST (17-59) U/L ALT (21-72) U/L Alkaline Phosphatase (38-126) U/L Total Creatine Kinase 289 H (55-170) U/L CK-MB (Mass) 7.54 H (0.0-3.38) ng/mL Troponin I 8.6400 H* (0.00-0.120) ng/mL Total Protein (6.3-8.3) g/dL Albumin (3.5-5.0) g/dL Globulin (2.2-3.9) gm/dL Albumin/Globulin Ratio (1.0-2.1) Hep Bs Antigen (NEGATIVE) Hep Bs Antibody (NEGATIVE) Hep B Core IgM Ab (NEGATIVE) Hepatitis C Antibody (NEGATIVE) 12/02/17 12/02/17 12/02/17 Range/Units 17:41 17:41 17:41 WBC (4.8-10.8) K/uL RBC (4.40-5.90) Mil/uL Hgb (12.0-18.0) g/dL Hct (35.0-51.0) % MCV (80.0-94.0) fL MCH (27.0-31.0) pg MCHC (33.0-37.0) g/dL RDW (11.5-14.5) % Plt Count (130-400) K/uL MPV (7.2-11.7) fL Neut % (Auto) (50.0-75.0) % Lymph % (Auto) (20.0-40.0) % [place] % (Auto) (0.0-10.0) % Eos % (Auto) (0.0-4.0) % Baso % (Auto) (0.0-2.0) % Neut # (Auto) (1.8-7.0) K/uL Lymph # (Auto) (1.0-4.3) K/uL [place] # (Auto) (0.0-0.8) K/uL Eos # (Auto) (0.0-0.7) K/uL Baso # (Auto) (0.0-0.2) K/uL APTT (21-34) SECONDS Sodium (132-148) mmol/L Potassium (3.6-5.2) mmol/L Chloride (98-107) mmol/L Carbon Dioxide (22-30) mmol/L Anion Gap (10-20) BUN (9-20) mg/dL Creatinine (0.8-1.5) mg/dL Est GFR ( Amer) Est GFR (Non-Af Amer) POC Glucose (mg/dL) (65-110) mg/dL Random Glucose (75-110) mg/dL Calcium (8.6-10.4) mg/dl Phosphorus (2.5-4.5) mg/dL Magnesium (1.6-2.3) mg/dL % Saturation 6 L (20-55) Ferritin ng/mL Total Bilirubin (0.2-1.3) mg/dL AST (17-59) U/L ALT (21-72) U/L Alkaline Phosphatase (38-126) U/L Total Creatine Kinase 338 H (55-170) U/L CK-MB (Mass) 10.1 H (0.0-3.38) ng/mL Troponin I 9.1300 H* (0.00-0.120) ng/mL Total Protein (6.3-8.3) g/dL Albumin (3.5-5.0) g/dL Globulin (2.2-3.9) gm/dL Albumin/Globulin Ratio (1.0-2.1) Hep Bs Antigen (NEGATIVE) Hep Bs Antibody Positive (NEGATIVE) Hep B Core IgM Ab (NEGATIVE) Hepatitis C Antibody (NEGATIVE) 12/02/17 12/02/17 12/02/17 Range/Units 17:41 12:41 09:33 WBC (4.8-10.8) K/uL RBC (4.40-5.90) Mil/uL Hgb (12.0-18.0) g/dL Hct (35.0-51.0) % MCV (80.0-94.0) fL MCH (27.0-31.0) pg MCHC (33.0-37.0) g/dL RDW (11.5-14.5) % Plt Count (130-400) K/uL MPV (7.2-11.7) fL Neut % (Auto) (50.0-75.0) % Lymph % (Auto) (20.0-40.0) % [place] % (Auto) (0.0-10.0) % Eos % (Auto) (0.0-4.0) % Baso % (Auto) (0.0-2.0) % Neut # (Auto) (1.8-7.0) K/uL Lymph # (Auto) (1.0-4.3) K/uL [place] # (Auto) (0.0-0.8) K/uL Eos # (Auto) (0.0-0.7) K/uL Baso # (Auto) (0.0-0.2) K/uL APTT 42 H D (21-34) SECONDS Sodium 143 (132-148) mmol/L Potassium 4.8 (3.6-5.2) mmol/L Chloride 108 H (98-107) mmol/L Carbon Dioxide 15 L (22-30) mmol/L Anion Gap 25 H (10-20) BUN 100 H* (9-20) mg/dL Creatinine 8.0 H* (0.8-1.5) mg/dL Est GFR ( Amer) 8 Est GFR (Non-Af Amer) 7 POC Glucose (mg/dL) (65-110) mg/dL Random Glucose 130 H (75-110) mg/dL Calcium 7.1 L (8.6-10.4) mg/dl Phosphorus 6.1 H (2.5-4.5) mg/dL Magnesium (1.6-2.3) mg/dL % Saturation (20-55) Ferritin 17.2 ng/mL Total Bilirubin (0.2-1.3) mg/dL AST (17-59) U/L ALT (21-72) U/L Alkaline Phosphatase (38-126) U/L Total Creatine Kinase 414 H (55-170) U/L CK-MB (Mass) 14.3 H (0.0-3.38) ng/mL Troponin I 9.9500 H* (0.00-0.120) ng/mL Total Protein (6.3-8.3) g/dL Albumin (3.5-5.0) g/dL Globulin (2.2-3.9) gm/dL Albumin/Globulin Ratio (1.0-2.1) Hep Bs Antigen Negative (NEGATIVE) Hep Bs Antibody (NEGATIVE) Hep B Core IgM Ab Negative (NEGATIVE) Hepatitis C Antibody Negative (NEGATIVE) Laboratory Results - last 24 hr 12/02/17 12/02/17 12/02/17 09:33 12:41 17:41 WBC RBC Hgb Hct MCV MCH MCHC RDW Plt Count MPV Neut % (Auto) Lymph % (Auto) [place] % (Auto) Eos % (Auto) Baso % (Auto) Neut # (Auto) Lymph # (Auto) [place] # (Auto) Eos # (Auto) Baso # (Auto) APTT 42 H D Sodium 143 Potassium 4.8 Chloride 108 H Carbon Dioxide 15 L Anion Gap 25 H BUN 100 H* Creatinine 8.0 H* Est GFR ( Amer) 8 Est GFR (Non-Af Amer) 7 POC Glucose (mg/dL) Random Glucose 130 H Calcium 7.1 L Phosphorus 6.1 H Magnesium % Saturation Ferritin 17.2 Total Bilirubin AST ALT Alkaline Phosphatase Total Creatine Kinase 414 H CK-MB (Mass) 14.3 H Troponin I 9.9500 H* Total Protein Albumin Globulin Albumin/Globulin Ratio Hep Bs Antigen Negative Hep Bs Antibody Hep B Core IgM Ab Negative Hepatitis C Antibody Negative 12/02/17 12/02/17 12/02/17 17:41 17:41 17:41 WBC RBC Hgb Hct MCV MCH MCHC RDW Plt Count MPV Neut % (Auto) Lymph % (Auto) [place] % (Auto) Eos % (Auto) Baso % (Auto) Neut # (Auto) Lymph # (Auto) [place] # (Auto) Eos # (Auto) Baso # (Auto) APTT Sodium Potassium Chloride Carbon Dioxide Anion Gap BUN Creatinine Est GFR ( Amer) Est GFR (Non-Af Amer) POC Glucose (mg/dL) Random Glucose Calcium Phosphorus Magnesium % Saturation 6 L Ferritin Total Bilirubin AST ALT Alkaline Phosphatase Total Creatine Kinase 338 H CK-MB (Mass) 10.1 H Troponin I 9.1300 H* Total Protein Albumin Globulin Albumin/Globulin Ratio Hep Bs Antigen Hep Bs Antibody Positive Hep B Core IgM Ab Hepatitis C Antibody 12/02/17 12/02/17 12/02/17 20:00 22:03 22:55 WBC RBC Hgb Hct MCV MCH MCHC RDW Plt Count MPV Neut % (Auto) Lymph % (Auto) [place] % (Auto) Eos % (Auto) Baso % (Auto) Neut # (Auto) Lymph # (Auto) [place] # (Auto) Eos # (Auto) Baso # (Auto) APTT 52 H D Sodium Potassium Chloride Carbon Dioxide Anion Gap BUN Creatinine Est GFR ( Amer) Est GFR (Non-Af Amer) POC Glucose (mg/dL) 133 H Random Glucose Calcium Phosphorus Magnesium % Saturation Ferritin Total Bilirubin AST ALT Alkaline Phosphatase Total Creatine Kinase 289 H CK-MB (Mass) 7.54 H Troponin I 8.6400 H* Total Protein Albumin Globulin Albumin/Globulin Ratio Hep Bs Antigen Hep Bs Antibody Hep B Core IgM Ab Hepatitis C Antibody 12/03/17 12/03/17 12/03/17 02:13 06:07 06:07 WBC 9.6 RBC 2.98 L Hgb 8.7 L Hct 26.0 L MCV 87.3 D MCH 29.3 MCHC 33.6 RDW 14.0 Plt Count 204 MPV 10.3 Neut % (Auto) 79.3 H Lymph % (Auto) 10.1 L [place] % (Auto) 10.3 H Eos % (Auto) 0.1 Baso % (Auto) 0.2 Neut # (Auto) 7.6 H Lymph # (Auto) 1.0 [place] # (Auto) 1.0 H Eos # (Auto) 0.0 Baso # (Auto) 0.0 APTT 46 H D Sodium 141 Potassium 3.5 L Chloride 100 Carbon Dioxide 25 Anion Gap 20 BUN 69 H Creatinine 5.7 H Est GFR ( Amer) 12 Est GFR (Non-Af Amer) 10 POC Glucose (mg/dL) Random Glucose 104 Calcium 7.4 L Phosphorus 4.8 H Magnesium 1.8 % Saturation Ferritin Total Bilirubin 0.5 AST 33 ALT 20 L Alkaline Phosphatase 96 Total Creatine Kinase CK-MB (Mass) Troponin I Total Protein 7.3 Albumin 3.5 Globulin 3.8 Albumin/Globulin Ratio 0.9 L Hep Bs Antigen Hep Bs Antibody Hep B Core IgM Ab Hepatitis C Antibody Fingerstick Blood Sugar Results: 133 Critical Care Progress Note - Nutrition Nutrition: Nutrition Category Date Time Status Heart Healthy Diet [DIET] Diets 12/02/17 Breakfast Active NPO Diet [DIET] Diets 12/05/17 Breakfast Active
--- NOTE | 2017-12-03 09:37 | CP.PCM.PN ---
Subjective - Date & Time of Evaluation Date of Evaluation: 12/03/17 Time of Evaluation: 09:34 - Subjective Subjective: pt seen and exmained SOB better on nasal cannula no chest pain on heparin drip had first H D yesterday- tolerated well ROS- as per HPI, other than that 10 point ROS negative Objective - Vital Signs/Intake and Output Vital Signs (last 24 hours): Temp Pulse Resp BP Pulse Ox 98.1 F 72 15 124/58 L 96 12/03/17 04:00 12/03/17 08:54 12/03/17 08:54 12/03/17 08:54 12/03/17 08:54 Intake and Output: 12/03/17 12/03/17 06:59 18:59 Intake Total 2021.2 767.6 Output Total 1450 Balance 571.2 767.6 - Medications Medications: Current Medications Aspirin (Aspirin Chewable) 81 mg PO DAILY [facility] Last Admin: 12/02/17 10:03 Dose: 81 mg Carvedilol (Coreg) 3.125 mg PO BID [facility] Last Admin: 12/02/17 18:29 Dose: Not Given Clopidogrel Bisulfate (Plavix) 75 mg PO DAILY [facility] Famotidine (Pepcid) 20 mg PO DAILY [facility] Last Admin: 12/02/17 10:03 Dose: 20 mg Furosemide (Lasix) 40 mg IVP Q12 [facility] Last Admin: 12/02/17 21:26 Dose: 40 mg Heparin Sodium/Sodium Chloride (Heparin 78960 Units/250ml 1/2 Normal Saline) 25 ,000 units in 250 mls @ 9.271 mls/hr IV .Q24H PRN; Protocol; 14 UNITS/KG/HR PRN Reason: ADJUST RATE PER PROTOCOL Last Admin: 12/03/17 07:57 Dose: 14 units/kg/hr, 9.271 mls/hr Rosuvastatin Calcium (Crestor) 5 mg PO HS [facility] Last Admin: 12/02/17 21:26 Dose: 5 mg - Labs Labs: 12/03/17 06:07 12/03/17 06:07 PT 11.8 SECONDS (9.7-12.2) 12/02/17 02:29 INR 1.1 12/02/17 02:29 APTT 46 SECONDS (21-34) H D 12/03/17 02:13 - Constitutional Appears: Well, Non-toxic - Head Exam Head Exam: ATRAUMATIC, NORMOCEPHALIC - Eye Exam Eye Exam: EOMI, PERRL - ENT Exam ENT Exam: Mucous Membranes Moist - Neck Exam Neck Exam: absent: Lymphadenopathy - Respiratory Exam Respiratory Exam: Decreased Breath Sounds, Clear to Ausculation Bilateral. absent: Rhonchi, Wheezes - Cardiovascular Exam Cardiovascular Exam: REGULAR RHYTHM, +S1, +S2, Murmur - GI/Abdominal Exam GI & Abdominal Exam: Soft. absent: Tenderness - Extremities Exam Extremities Exam: absent: Joint Swelling, Pedal Edema - Neurological Exam Neurological Exam: Alert, Awake, Oriented x3 - Psychiatric Exam Psychiatric exam: Normal Affect, Normal Mood - Skin Skin Exam: Dry, Warm Assessment and Plan (1) HLD (hyperlipidemia) Status: Acute (2) Hypertensive chronic kidney disease with stage 5 chronic kidney disease or end stage renal disease Status: Acute (3) Uremia Status: Acute (4) CAD (coronary artery disease) Status: Acute (5) HTN (hypertension) Status: Acute (6) Anemia Status: Chronic - Assessment and Plan (Free Text) Plan: second HD today no need for HD tomorrow acidosis and hyperkalemia improved for cath on tuesday
--- NOTE | 2017-12-03 18:23 | CP.PCM.PN ---
Subjective - Date & Time of Evaluation Date of Evaluation: 12/03/17 Time of Evaluation: 18:21 - Subjective Subjective: Chart reviewed Covering for Dr. solis Admitted with elevated serum troponin in a setting for renal failure; was initiated on dialyses Past medical history significant for hypertension, renal insufficiency, congestive heart failure, pulmonary hypertension and coronary artery disease Medications: reviewed Exam No distress Normal venous pressures being dialyzed currently Clear lungs Normal heart sounds No edema DP +=+ EKG: sinus LVH left atrial enlargement inferior wall infarct; reviewed Telemetry: benign; reviewed Echo: EF 35-40%; reviewed Objective - Vital Signs/Intake and Output Vital Signs (last 24 hours): Temp Pulse Resp BP Pulse Ox 97.6 F 78 20 136/79 100 12/03/17 16:00 12/03/17 18:06 12/03/17 18:06 12/03/17 18:06 12/03/17 18:06 Intake and Output: 12/03/17 12/03/17 06:59 18:59 Intake Total 2021.2 1670.4 Output Total 1450 750 Balance 571.2 920.4 - Medications Medications: Current Medications Aspirin (Aspirin Chewable) 81 mg PO DAILY [facility] Last Admin: 12/03/17 10:29 Dose: 81 mg Carvedilol (Coreg) 3.125 mg PO BID [facility] Last Admin: 12/03/17 10:29 Dose: 3.125 mg Clopidogrel Bisulfate (Plavix) 75 mg PO DAILY [facility] Last Admin: 12/03/17 10:29 Dose: 75 mg Famotidine (Pepcid) 20 mg PO DAILY [facility] Last Admin: 12/03/17 10:29 Dose: 20 mg Furosemide (Lasix) 40 mg IVP Q12 [facility] Last Admin: 12/03/17 10:29 Dose: 40 mg Heparin Sodium/Sodium Chloride (Heparin 12151 Units/250ml 1/2 Normal Saline) 25 ,000 units in 250 mls @ 9.271 mls/hr IV .Q24H PRN; Protocol; 14 UNITS/KG/HR PRN Reason: ADJUST RATE PER PROTOCOL Last Admin: 12/03/17 07:57 Dose: 14 units/kg/hr, 9.271 mls/hr Rosuvastatin Calcium (Crestor) 5 mg PO HS [facility] Last Admin: 12/02/17 21:26 Dose: 5 mg - Labs Labs: 12/03/17 06:07 12/03/17 06:07 PT 11.8 SECONDS (9.7-12.2) 12/02/17 02:29 INR 1.1 12/02/17 02:29 APTT 46 SECONDS (21-34) H D 12/03/17 02:13 Assessment and Plan - Assessment and Plan (Free Text) Assessment: 72 year old with worsening effort intolerance circumstantial evidence of left heart failure likely precipitated by myocardial ischemia/infarction and azotemia Awaiting cardiac cath; also need to ascertain LV ejection fraction for sudden prophylaxis DW patient prognosis procedures risks including but not limited to stroke myocardial infarction arrhythmia bleeding infection nerve damage Plan: Plan NPO post midnight tuesday Add hydralazine if hemodynamics permit Possible cardiac cath on tuesday MUGA scan prior to discharge ?Life vest
[2017-12-04 06:20] LABS: BASO % 0.4 % (0.0-2.0); EOS # 0.5 K/uL (0.0-0.7); EOS % 5.6 % (0.0-4.0); HEMOGLOBIN 8.3 g/dL (12.0-18.0); LYMPH # 1.2 K/uL (1.0-4.3); MEAN CELL VOLUME 88.5 fL (80.0-94.0); MEAN CORPUSCULAR HEMOGLOBIN 29.2 pg (27.0-31.0); MEAN CORPUSCULAR HGB CONC 33.1 g/dL (33.0-37.0); MEAN PLATELET VOLUME 10.5 fL (7.2-11.7); MONO # 1.1 K/uL (0.0-0.8); MONO % 12.2 % (0.0-10.0); NEUT # 6.1 K/uL (1.8-7.0); NEUT % 68.8 % (50.0-75.0); NRBC % 0.2 % (0.0-2.0); RBC 2.85 Mil/uL (4.40-5.90); RED CELL DISTRIBUTION WIDTH 13.8 % (11.5-14.5); WHITE BLOOD COUNT 8.9 K/uL (4.8-10.8)
[2017-12-04 06:38] LABS: ALB/GLOB RATIO 0.9 (1.0-2.1); ALBUMIN 3.4 g/dL (3.5-5.0); CALCIUM 7.1 mg/dl (8.6-10.4)
--- NOTE | 2017-12-04 08:09 | CP.CCUPN ---
CCU Subjective - Physician Review Events Since Last Encounter (Free Text): 12/04/17 08:09 72-year-old male with a history of hypertension, renal insufficiency, congestive heart failure, pulmonary hypertension and CAD. Admitted to the hospital with a non-ST elevation CT. Patient is also on acute on chronic renal failure On examination: Patient vital signs stable. Blood pressure controlled well. Regular heart sounds. Nontender abdomen. No pedal edema patient is a hemodialysis yesterday Assessment and recommendation: 72-year-old male with multiple medical history, CAD, renal insufficiency pulmonary hypertension and congestive heart failure Patient will be monitored in ICU for possible angiogram and cardiac cath by the cardiology and will follow-up the patient for possible intervention tomorrow by test engineering technician CCU Objective - Vital Signs / Intake & Output Vital Signs (Last 4 hours): Vital Signs Pulse Resp BP Pulse Ox 12/04/17 07:06 124/58 L 12/04/17 07:05 71 15 96 12/04/17 07:00 71 13 98 12/04/17 06:51 68 15 117/57 L 95 12/04/17 06:50 69 17 96 12/04/17 06:40 72 18 99 12/04/17 06:37 78 15 119/50 L 12/04/17 06:30 96 H 12 100 12/04/17 06:21 67 15 106/57 L 100 12/04/17 06:20 66 14 100 12/04/17 06:10 67 13 100 12/04/17 06:06 68 13 94/37 L 100 12/04/17 06:00 67 13 100 12/04/17 05:51 67 14 89/39 L 100 12/04/17 05:50 67 12 100 12/04/17 05:40 69 13 98 12/04/17 05:36 67 16 93/38 L 98 12/04/17 05:30 70 15 96 12/04/17 05:21 69 11 L 98/54 L 97 12/04/17 05:20 66 18 96 12/04/17 05:10 66 14 96 12/04/17 05:06 69 14 111/53 L 90 L 12/04/17 05:00 71 11 L 98 12/04/17 04:51 68 12 94/41 L 98 12/04/17 04:50 69 13 98 12/04/17 04:40 75 14 93 L 12/04/17 04:37 72 12 85/36 L 96 12/04/17 04:30 69 15 94 L 12/04/17 04:21 65 14 110/53 L 94 L 12/04/17 04:20 65 15 94 L 12/04/17 04:10 65 14 Intake and Output (Last 8hrs): Intake & Output 12/03/17 12/04/17 12/04/17 22:59 06:59 14:59 Intake Total 933.6 73.6 9.2 Output Total 400 900 300 Balance 533.6 -826.4 -290.8 Weight 140 lb Intake: Intake, IV Amount 73.6 73.6 9.2 Left Antecubital 73.6 73.6 9.2 Oral 860 Output: Urine 400 900 300 Urine, Voided 400 900 300 Stool 0 0 Other: # Voids Urine, Voided 1 - Medications Active Medications: Active Medications Generic Name Dose Route Start Last Admin Trade Name Freq PRN Reason Stop Dose Admin Aspirin 81 mg 12/02/17 10:00 12/03/17 10:29 Aspirin Chewable PO 81 mg DAILY SO Administration Carvedilol 3.125 mg 12/02/17 10:00 12/03/17 18:43 Coreg PO 3.125 mg BID SO Administration Clopidogrel Bisulfate 75 mg 12/02/17 10:00 12/03/17 10:29 Plavix PO 75 mg DAILY SO Administration Famotidine 20 mg 12/02/17 10:00 12/03/17 10:29 Pepcid PO 20 mg DAILY SO Administration Furosemide 40 mg 12/02/17 10:00 12/03/17 21:18 Lasix IVP 40 mg Q12 SO Administration Heparin Sodium/Sodium Chloride 25,000 units in 250 mls @ 9.271 mls/hr 14:00 12/03/17 07:57 Heparin 18087 Units/250ml 1/2 Normal Saline IV 14 units/kg/hr .Q24H PRN 9.271 mls/hr ADJUST RATE PER PROTOCOL Administration Protocol 14 UNITS/KG/HR Rosuvastatin Calcium 5 mg 12/02/17 22:00 12/03/17 21:20 Crestor PO 5 mg HS SO Administration - Patient Studies Lab Studies: Microbiology Studies 12/02/17 Unknown MRSA Culture (Admit) - Final [facility] Lab Studies 12/04/17 12/04/17 12/04/17 Range/Units 07:40 06:10 06:10 WBC (4.8-10.8) K/uL RBC (4.40-5.90) Mil/uL Hgb (12.0-18.0) g/dL Hct (35.0-51.0) % MCV (80.0-94.0) fL MCH (27.0-31.0) pg MCHC (33.0-37.0) g/dL RDW (11.5-14.5) % Plt Count (130-400) K/uL MPV (7.2-11.7) fL Neut % (Auto) (50.0-75.0) % Lymph % (Auto) (20.0-40.0) % [place] % (Auto) (0.0-10.0) % Eos % (Auto) (0.0-4.0) % Baso % (Auto) (0.0-2.0) % Neut # (Auto) (1.8-7.0) K/uL Lymph # (Auto) (1.0-4.3) K/uL [place] # (Auto) (0.0-0.8) K/uL Eos # (Auto) (0.0-0.7) K/uL Baso # (Auto) (0.0-0.2) K/uL APTT 49 H (21-34) SECONDS Sodium 137 (132-148) mmol/L Potassium 3.5 L (3.6-5.2) mmol/L Chloride 98 (98-107) mmol/L Carbon Dioxide 24 (22-30) mmol/L Anion Gap 19 (10-20) BUN 78 H (9-20) mg/dL Creatinine 6.4 H (0.8-1.5) mg/dL Est GFR ( Amer) 10 Est GFR (Non-Af Amer) 9 POC Glucose (mg/dL) 128 H (65-110) mg/dL Random Glucose 114 H (75-110) mg/dL Calcium 7.1 L (8.6-10.4) mg/dl Phosphorus 4.3 (2.5-4.5) mg/dL Magnesium 1.9 (1.6-2.3) mg/dL Total Bilirubin 0.5 (0.2-1.3) mg/dL AST 24 (17-59) U/L ALT 18 L (21-72) U/L Alkaline Phosphatase 102 (38-126) U/L Total Protein 7.0 (6.3-8.3) g/dL Albumin 3.4 L (3.5-5.0) g/dL Globulin 3.7 (2.2-3.9) gm/dL Albumin/Globulin Ratio 0.9 L (1.0-2.1) 12/04/17 12/03/17 12/03/17 Range/Units 06:10 21:11 16:03 WBC 8.9 (4.8-10.8) K/uL RBC 2.85 L (4.40-5.90) Mil/uL Hgb 8.3 L (12.0-18.0) g/dL Hct 25.2 L (35.0-51.0) % MCV 88.5 (80.0-94.0) fL MCH 29.2 (27.0-31.0) pg MCHC 33.1 (33.0-37.0) g/dL RDW 13.8 (11.5-14.5) % Plt Count 168 (130-400) K/uL MPV 10.5 (7.2-11.7) fL Neut % (Auto) 68.8 (50.0-75.0) % Lymph % (Auto) 13.0 L (20.0-40.0) % [place] % (Auto) 12.2 H (0.0-10.0) % Eos % (Auto) 5.6 H (0.0-4.0) % Baso % (Auto) 0.4 (0.0-2.0) % Neut # (Auto) 6.1 (1.8-7.0) K/uL Lymph # (Auto) 1.2 (1.0-4.3) K/uL [place] # (Auto) 1.1 H (0.0-0.8) K/uL Eos # (Auto) 0.5 (0.0-0.7) K/uL Baso # (Auto) 0.0 (0.0-0.2) K/uL APTT (21-34) SECONDS Sodium (132-148) mmol/L Potassium (3.6-5.2) mmol/L Chloride (98-107) mmol/L Carbon Dioxide (22-30) mmol/L Anion Gap (10-20) BUN (9-20) mg/dL Creatinine (0.8-1.5) mg/dL Est GFR ( Amer) Est GFR (Non-Af Amer) POC Glucose (mg/dL) 175 H 150 H (65-110) mg/dL Random Glucose (75-110) mg/dL Calcium (8.6-10.4) mg/dl Phosphorus (2.5-4.5) mg/dL Magnesium (1.6-2.3) mg/dL Total Bilirubin (0.2-1.3) mg/dL AST (17-59) U/L ALT (21-72) U/L Alkaline Phosphatase (38-126) U/L Total Protein (6.3-8.3) g/dL Albumin (3.5-5.0) g/dL Globulin (2.2-3.9) gm/dL Albumin/Globulin Ratio (1.0-2.1) 12/03/17 12/03/17 Range/Units 11:28 07:13 WBC (4.8-10.8) K/uL RBC (4.40-5.90) Mil/uL Hgb (12.0-18.0) g/dL Hct (35.0-51.0) % MCV (80.0-94.0) fL MCH (27.0-31.0) pg MCHC (33.0-37.0) g/dL RDW (11.5-14.5) % Plt Count (130-400) K/uL MPV (7.2-11.7) fL Neut % (Auto) (50.0-75.0) % Lymph % (Auto) (20.0-40.0) % [place] % (Auto) (0.0-10.0) % Eos % (Auto) (0.0-4.0) % Baso % (Auto) (0.0-2.0) % Neut # (Auto) (1.8-7.0) K/uL Lymph # (Auto) (1.0-4.3) K/uL [place] # (Auto) (0.0-0.8) K/uL Eos # (Auto) (0.0-0.7) K/uL Baso # (Auto) (0.0-0.2) K/uL APTT (21-34) SECONDS Sodium (132-148) mmol/L Potassium (3.6-5.2) mmol/L Chloride (98-107) mmol/L Carbon Dioxide (22-30) mmol/L Anion Gap (10-20) BUN (9-20) mg/dL Creatinine (0.8-1.5) mg/dL Est GFR ( Amer) Est GFR (Non-Af Amer) POC Glucose (mg/dL) 250 H 156 H (65-110) mg/dL Random Glucose (75-110) mg/dL Calcium (8.6-10.4) mg/dl Phosphorus (2.5-4.5) mg/dL Magnesium (1.6-2.3) mg/dL Total Bilirubin (0.2-1.3) mg/dL AST (17-59) U/L ALT (21-72) U/L Alkaline Phosphatase (38-126) U/L Total Protein (6.3-8.3) g/dL Albumin (3.5-5.0) g/dL Globulin (2.2-3.9) gm/dL Albumin/Globulin Ratio (1.0-2.1) Laboratory Results - last 24 hr 12/03/17 12/03/17 12/03/17 07:13 11:28 16:03 WBC RBC Hgb Hct MCV MCH MCHC RDW Plt Count MPV Neut % (Auto) Lymph % (Auto) [place] % (Auto) Eos % (Auto) Baso % (Auto) Neut # (Auto) Lymph # (Auto) [place] # (Auto) Eos # (Auto) Baso # (Auto) APTT Sodium Potassium Chloride Carbon Dioxide Anion Gap BUN Creatinine Est GFR ( Amer) Est GFR (Non-Af Amer) POC Glucose (mg/dL) 156 H 250 H 150 H Random Glucose Calcium Phosphorus Magnesium Total Bilirubin AST ALT Alkaline Phosphatase Total Protein Albumin Globulin Albumin/Globulin Ratio 12/03/17 12/04/17 12/04/17 21:11 06:10 06:10 WBC 8.9 RBC 2.85 L Hgb 8.3 L Hct 25.2 L MCV 88.5 MCH 29.2 MCHC 33.1 RDW 13.8 Plt Count 168 MPV 10.5 Neut % (Auto) 68.8 Lymph % (Auto) 13.0 L [place] % (Auto) 12.2 H Eos % (Auto) 5.6 H Baso % (Auto) 0.4 Neut # (Auto) 6.1 Lymph # (Auto) 1.2 [place] # (Auto) 1.1 H Eos # (Auto) 0.5 Baso # (Auto) 0.0 APTT Sodium 137 Potassium 3.5 L Chloride 98 Carbon Dioxide 24 Anion Gap 19 BUN 78 H Creatinine 6.4 H Est GFR ( Amer) 10 Est GFR (Non-Af Amer) 9 POC Glucose (mg/dL) 175 H Random Glucose 114 H Calcium 7.1 L Phosphorus 4.3 Magnesium 1.9 Total Bilirubin 0.5 AST 24 ALT 18 L Alkaline Phosphatase 102 Total Protein 7.0 Albumin 3.4 L Globulin 3.7 Albumin/Globulin Ratio 0.9 L 12/04/17 12/04/17 06:10 07:40 WBC RBC Hgb Hct MCV MCH MCHC RDW Plt Count MPV Neut % (Auto) Lymph % (Auto) [place] % (Auto) Eos % (Auto) Baso % (Auto) Neut # (Auto) Lymph # (Auto) [place] # (Auto) Eos # (Auto) Baso # (Auto) APTT 49 H Sodium Potassium Chloride Carbon Dioxide Anion Gap BUN Creatinine Est GFR ( Amer) Est GFR (Non-Af Amer) POC Glucose (mg/dL) 128 H Random Glucose Calcium Phosphorus Magnesium Total Bilirubin AST ALT Alkaline Phosphatase Total Protein Albumin Globulin Albumin/Globulin Ratio Fingerstick Blood Sugar Results: 175 Critical Care Progress Note - Nutrition Nutrition: Nutrition Category Date Time Status Heart Healthy Diet [DIET] Diets 12/02/17 Breakfast Active NPO Diet [DIET] Diets 12/05/17 Breakfast Active
[2017-12-04] MEDS: Heparin25000 units/250ml 1/2NS 25,000 UNITS/250 ML BAG IV PRN (11:29)
--- NOTE | 2017-12-04 16:25 | CP.PCM.PN ---
Subjective - Date & Time of Evaluation Date of Evaluation: 12/04/17 Time of Evaluation: 16:23 - Subjective Subjective: Case reviewed Seen and examined Relatives in attendance Denied chest pain palpitations dizziness Exam Normal venous pressures Clear lungs Normal heart sounds No edema Tel: benign Vitals: stable Labs: troponin receding K 3.5 Objective - Vital Signs/Intake and Output Vital Signs (last 24 hours): Temp Pulse Resp BP Pulse Ox 98.5 F 74 19 110/51 L 99 12/04/17 12:00 12/04/17 16:20 12/04/17 16:20 12/04/17 16:07 12/04/17 16:20 Intake and Output: 12/04/17 12/04/17 06:59 18:59 Intake Total 550.4 892.0 Output Total 1050 900 Balance -499.6 -8.0 - Medications Medications: Current Medications Aspirin (Aspirin Chewable) 81 mg PO DAILY [facility] Last Admin: 12/04/17 09:04 Dose: 81 mg Carvedilol (Coreg) 3.125 mg PO BID [facility] Last Admin: 12/04/17 10:11 Dose: 3.125 mg Clopidogrel Bisulfate (Plavix) 75 mg PO DAILY [facility] Last Admin: 12/04/17 09:04 Dose: 75 mg Famotidine (Pepcid) 20 mg PO DAILY [facility] Last Admin: 12/04/17 09:04 Dose: 20 mg Furosemide (Lasix) 40 mg IVP Q12 [facility] Last Admin: 12/04/17 10:11 Dose: 40 mg Heparin Sodium/Sodium Chloride (Heparin 07704 Units/250ml 1/2 Normal Saline) 25 ,000 units in 250 mls @ 9.271 mls/hr IV .Q24H PRN; Protocol; 14 UNITS/KG/HR PRN Reason: ADJUST RATE PER PROTOCOL Last Admin: 12/04/17 11:29 Dose: 14 units/kg/hr, 9.271 mls/hr Rosuvastatin Calcium (Crestor) 5 mg PO HS [facility] Last Admin: 12/03/17 21:20 Dose: 5 mg - Labs Labs: 12/04/17 06:10 12/04/17 06:10 PT 11.8 SECONDS (9.7-12.2) 12/02/17 02:29 INR 1.1 12/02/17 02:29 APTT 49 SECONDS (21-34) H 12/04/17 06:10 Assessment and Plan - Assessment and Plan (Free Text) Assessment: Stable post NSTEMI Normal sinus rhythm Stable hemodynamics No evidence of heart failure Anemia Plan: NPO post midnight Possible Cath Monitor electrolytes Transfuse to a hematocrit of 30 +DW patient procedures risks including but not limited to heart attack stroke arrhythmia bleeding nerve damage infection; he verbalized understanding and assents
[2017-12-05 06:05] LABS: BASO % 0.5 % (0.0-2.0); EOS # 1.3 K/uL (0.0-0.7); EOS % 14.5 % (0.0-4.0); HEMOGLOBIN 7.4 g/dL (12.0-18.0); LYMPH # 1.1 K/uL (1.0-4.3); LYMPH % 12.8 % (20.0-40.0); MEAN CELL VOLUME 88.3 fL (80.0-94.0); MEAN CORPUSCULAR HEMOGLOBIN 29.5 pg (27.0-31.0); MEAN CORPUSCULAR HGB CONC 33.4 g/dL (33.0-37.0); MEAN PLATELET VOLUME 10.7 fL (7.2-11.7); MONO % 11.6 % (0.0-10.0); NEUT # 5.2 K/uL (1.8-7.0); NEUT % 60.6 % (50.0-75.0); RBC 2.51 Mil/uL (4.40-5.90); RED CELL DISTRIBUTION WIDTH 13.9 % (11.5-14.5); WHITE BLOOD COUNT 8.6 K/uL (4.8-10.8)
[2017-12-05 06:20] LABS: INR 1.1; PROTHROMBIN TIME 12.8 SECONDS (9.7-12.2)
[2017-12-05 07:26] LABS: ALB/GLOB RATIO 0.8 (1.0-2.1); ALBUMIN 2.6 g/dL (3.5-5.0)
[2017-12-05 07:28] LABS: CALCIUM 5.5 mg/dl (8.6-10.4)
[2017-12-05 07:54] LABS: BASO % 0.5 % (0.0-2.0); EOS # 1.4 K/uL (0.0-0.7); EOS % 15.5 % (0.0-4.0); HEMOGLOBIN 8.2 g/dL (12.0-18.0); LYMPH # 1.1 K/uL (1.0-4.3); MEAN CELL VOLUME 87.3 fL (80.0-94.0); MEAN CORPUSCULAR HEMOGLOBIN 29.2 pg (27.0-31.0); MEAN CORPUSCULAR HGB CONC 33.4 g/dL (33.0-37.0); MEAN PLATELET VOLUME 9.6 fL (7.2-11.7); MONO % 10.6 % (0.0-10.0); NEUT # 5.6 K/uL (1.8-7.0); NEUT % 61.4 % (50.0-75.0); RBC 2.81 Mil/uL (4.40-5.90); RED CELL DISTRIBUTION WIDTH 13.9 % (11.5-14.5); WHITE BLOOD COUNT 9.1 K/uL (4.8-10.8)
[2017-12-05 08:14] LABS: ALB/GLOB RATIO 0.9 (1.0-2.1); ALBUMIN 3.3 g/dL (3.5-5.0); CALCIUM 6.8 mg/dl (8.6-10.4)
--- NOTE | 2017-12-05 12:07 | CP.PCM.PN ---
Subjective - Date & Time of Evaluation Date of Evaluation: 12/05/17 Time of Evaluation: 12:04 - Subjective Subjective: s/p dialysis 12/03- tolerated well feels much better still with severe anemia- TSAT very low BP lower for cardiac cath today no n, v, diarrhea, f, chill, CPs; no more SOB Objective - Vital Signs/Intake and Output Vital Signs (last 24 hours): Temp Pulse Resp BP Pulse Ox 97.4 F L 68 13 92/42 L 98 12/05/17 08:00 12/05/17 11:05 12/05/17 11:05 12/05/17 11:00 12/05/17 11:05 Intake and Output: 12/05/17 12/05/17 06:59 18:59 Intake Total 419.6 186.8 Output Total 1250 Balance -830.4 186.8 - Medications Medications: Current Medications Aspirin (Aspirin Chewable) 81 mg PO DAILY [facility] Last Admin: 12/05/17 09:29 Dose: 81 mg Carvedilol (Coreg) 3.125 mg PO BID [facility] Last Admin: 12/05/17 09:27 Dose: 3.125 mg Clopidogrel Bisulfate (Plavix) 75 mg PO DAILY [facility] Last Admin: 12/05/17 09:28 Dose: 75 mg Famotidine (Pepcid) 20 mg PO DAILY [facility] Last Admin: 12/05/17 09:28 Dose: 20 mg Furosemide (Lasix) 40 mg IVP Q12 [facility] Last Admin: 12/05/17 09:30 Dose: 40 mg Heparin Sodium/Sodium Chloride (Heparin 54437 Units/250ml 1/2 Normal Saline) 25 ,000 units in 250 mls @ 9.271 mls/hr IV .Q24H PRN; Protocol; 14 UNITS/KG/HR PRN Reason: ADJUST RATE PER PROTOCOL Last Titration: 12/05/17 09:23 Dose: 0 units/kg/hr, 0 mls/hr Rosuvastatin Calcium (Crestor) 5 mg PO HS [facility] Last Admin: 12/04/17 21:10 Dose: 5 mg - Labs Labs: 12/05/17 07:51 12/05/17 07:51 PT 12.8 SECONDS (9.7-12.2) H 12/05/17 05:56 INR 1.1 12/05/17 05:56 APTT 77 SECONDS (21-34) H D 12/05/17 05:56 - Constitutional Appears: No Acute Distress, Chronically Ill - Head Exam Head Exam: ATRAUMATIC, NORMAL INSPECTION - Eye Exam Eye Exam: EOMI, Normal appearance - Neck Exam Neck Exam: Full ROM, Normal Inspection. absent: Tenderness - Respiratory Exam Respiratory Exam: Clear to Ausculation Bilateral, NORMAL BREATHING PATTERN - Cardiovascular Exam Cardiovascular Exam: REGULAR RHYTHM, +S1 - GI/Abdominal Exam GI & Abdominal Exam: Soft. absent: Tenderness - Neurological Exam Neurological Exam: Alert, CN II-XII Intact - Skin Skin Exam: Dry. absent: Warm Assessment and Plan (1) Hypertensive chronic kidney disease with stage 5 chronic kidney disease or end stage renal disease Status: Acute (2) HLD (hyperlipidemia) Status: Acute (3) Uremia Status: Acute (4) CAD (coronary artery disease) Status: Acute (5) ESRD (end stage renal disease) Status: Acute - Assessment and Plan (Free Text) Plan: cardiac cath dialysis post cath and MWF Add EPO/ IV Fe Lower BP meds
[2017-12-05] MEDS: Ferric Sodium Gluconat Complex 62.5 mg/5 ml Vial IVPB SCH (14:34)
[2017-12-05 17:26] LABS: BASO % 0.5 % (0.0-2.0); EOS # 0.7 K/uL (0.0-0.7); EOS % 13.2 % (0.0-4.0); HEMOGLOBIN 7.4 g/dL (12.0-18.0); LYMPH # 0.6 K/uL (1.0-4.3); LYMPH % 11.7 % (20.0-40.0); MEAN CELL VOLUME 87.6 fL (80.0-94.0); MEAN CORPUSCULAR HEMOGLOBIN 28.7 pg (27.0-31.0); MEAN CORPUSCULAR HGB CONC 32.7 g/dL (33.0-37.0); MEAN PLATELET VOLUME 9.8 fL (7.2-11.7); MONO # 0.3 K/uL (0.0-0.8); MONO % 5.5 % (0.0-10.0); NEUT # 3.4 K/uL (1.8-7.0); NEUT % 69.1 % (50.0-75.0); NRBC % 0.1 % (0.0-2.0); RBC 2.59 Mil/uL (4.40-5.90); RED CELL DISTRIBUTION WIDTH 13.6 % (11.5-14.5)
[2017-12-05 17:45] LABS: ALB/GLOB RATIO 0.9 (1.0-2.1); CALCIUM 6.7 mg/dl (8.6-10.4)
[2017-12-05 17:55] LABS: CK-MB 0.74 ng/mL (0.0-3.38); TROPONIN I 1.4 ng/mL (0.00-0.120)
--- NOTE | 2017-12-05 18:41 | CP.CCUPN ---
CCU Subjective - Physician Review Subjective (Free Text): 12/05/17 18:34 Patient seen and examined. Patient is doing well and has no complaints at this time. Later during the day, the patient had syncopized during dialysis but quickly regained consciousness. He had an episode of bradycardia during dialysis. CCU Objective - Vital Signs / Intake & Output Vital Signs (Last 4 hours): Vital Signs Temp Pulse Resp BP Pulse Ox 12/05/17 17:17 67 16 125/54 L 95 12/05/17 17:16 67 13 120/56 L 94 L 12/05/17 17:13 70 19 113/52 L 94 L 12/05/17 17:08 62 13 87/38 L 92 L 12/05/17 17:06 53 L 18 52/29 L 93 L 12/05/17 17:04 41 L 20 55/27 L 98 12/05/17 17:01 97.4 F L 69 16 99/54 L 12/05/17 17:00 69 18 125/54 L 98 12/05/17 16:05 72 19 112/62 97 12/05/17 16:00 98.3 F 83 11 L 112/62 97 12/05/17 15:05 69 16 98 12/05/17 15:00 76 19 111/59 L 96 Intake and Output (Last 8hrs): Intake & Output 12/05/17 12/05/17 12/05/17 06:59 14:59 22:59 Intake Total 223.6 186.8 220 Output Total 1050 Balance -826.4 186.8 220 Weight 147 lb 4 oz Intake: IV 150 Intake, IV Amount 73.6 36.8 100 Left Antecubital 73.6 27.6 100 Right Hand 9.2 Oral 150 0 120 Output: Urine 1050 Urine, Voided 1050 - Physical Exam Head: Positive for: Atraumatic, Normocephalic Pupils: Positive for: PERRL Extroacular Muscles: Positive for: EOMI Mouth: Positive for: Moist Mucous Membranes Respiratory/Chest: Positive for: Clear to Auscultation. Negative for: Wheezes, Rales, Rhonchi Cardiovascular: Positive for: Regular Rate and Rhythm, Normal S1, S2 Abdomen: Positive for: Normal Bowel Sounds. Negative for: Tenderness, Distention Upper Extremity: Positive for: Normal Inspection Lower Extremity: Positive for: Normal Inspection Neurological: Positive for: GCS=15 Skin: Positive for: Warm, Dry Psychiatric: Positive for: Alert, Oriented x 3 - Medications Active Medications: Active Medications Generic Name Dose Route Start Last Admin Trade Name Josefina PRN Reason Stop Dose Admin Aspirin 81 mg 12/02/17 10:00 12/05/17 09:29 Aspirin Chewable PO 81 mg DAILY SO Administration Carvedilol 3.125 mg 12/06/17 10:00 Coreg PO DAILY SO Clopidogrel Bisulfate 75 mg 12/02/17 10:00 12/05/17 09:28 Plavix PO 75 mg DAILY SO Administration Epoetin Riccardo 10,000 unit 12/07/17 09:00 Procrit IV MWF SO Famotidine 20 mg 12/02/17 10:00 12/05/17 09:28 Pepcid PO 20 mg DAILY SO Administration Ferric Sodium Gluconate Complex 125 mg 12/05/17 12:15 12/05/17 14:34 Ferrlecit IVPB 12/13/17 12:16 125 mg DAILY SO Administration Furosemide 40 mg 12/06/17 10:00 Lasix PO DAILY SO Rosuvastatin Calcium 5 mg 12/02/17 22:00 12/04/17 21:10 Crestor PO 5 mg HS SO Administration - Patient Studies Lab Studies: Lab Studies 12/05/17 12/05/17 12/05/17 Range/Units 17:21 17:21 16:04 WBC 5.0 (4.8-10.8) K/uL RBC 2.59 L (4.40-5.90) Mil/uL Hgb 7.4 L (12.0-18.0) g/dL Hct 22.7 L (35.0-51.0) % MCV 87.6 (80.0-94.0) fL MCH 28.7 (27.0-31.0) pg MCHC 32.7 L (33.0-37.0) g/dL RDW 13.6 (11.5-14.5) % Plt Count 171 (130-400) K/uL MPV 9.8 (7.2-11.7) fL Neut % (Auto) 69.1 (50.0-75.0) % Lymph % (Auto) 11.7 L (20.0-40.0) % [place] % (Auto) 5.5 (0.0-10.0) % Eos % (Auto) 13.2 H (0.0-4.0) % Baso % (Auto) 0.5 (0.0-2.0) % Neut # (Auto) 3.4 (1.8-7.0) K/uL Lymph # (Auto) 0.6 L (1.0-4.3) K/uL [place] # (Auto) 0.3 (0.0-0.8) K/uL Eos # (Auto) 0.7 (0.0-0.7) K/uL Baso # (Auto) 0.0 (0.0-0.2) K/uL PT (9.7-12.2) SECONDS INR APTT (21-34) SECONDS Sodium 136 (132-148) mmol/L Potassium 3.8 (3.6-5.2) mmol/L Chloride 98 (98-107) mmol/L Carbon Dioxide 24 (22-30) mmol/L Anion Gap 18 (10-20) BUN 92 H (9-20) mg/dL Creatinine 6.8 H (0.8-1.5) mg/dL Est GFR ( Amer) 10 Est GFR (Non-Af Amer) 8 POC Glucose (mg/dL) 114 H (65-110) mg/dL Random Glucose 128 H (75-110) mg/dL Calcium 6.7 L (8.6-10.4) mg/dl Phosphorus 4.4 (2.5-4.5) mg/dL Magnesium 1.8 (1.6-2.3) mg/dL Total Bilirubin 0.5 (0.2-1.3) mg/dL AST 17 D (17-59) U/L ALT 18 L D (21-72) U/L Alkaline Phosphatase 79 (38-126) U/L Total Creatine Kinase 67 (55-170) U/L CK-MB (Mass) 0.74 (0.0-3.38) ng/mL Troponin I 1.4000 H* (0.00-0.120) ng/mL Total Protein 6.5 (6.3-8.3) g/dL Albumin 3.0 L (3.5-5.0) g/dL Globulin 3.5 (2.2-3.9) gm/dL Albumin/Globulin Ratio 0.9 L (1.0-2.1) PTH Intact Whole Molec (14-64) pg/mL 12/05/17 12/05/17 12/05/17 Range/Units 11:24 07:51 07:51 WBC 9.1 (4.8-10.8) K/uL RBC 2.81 L (4.40-5.90) Mil/uL Hgb 8.2 L (12.0-18.0) g/dL Hct 24.5 L (35.0-51.0) % MCV 87.3 (80.0-94.0) fL MCH 29.2 (27.0-31.0) pg MCHC 33.4 (33.0-37.0) g/dL RDW 13.9 (11.5-14.5) % Plt Count 188 (130-400) K/uL MPV 9.6 (7.2-11.7) fL Neut % (Auto) 61.4 (50.0-75.0) % Lymph % (Auto) 12.0 L (20.0-40.0) % [place] % (Auto) 10.6 H (0.0-10.0) % Eos % (Auto) 15.5 H (0.0-4.0) % Baso % (Auto) 0.5 (0.0-2.0) % Neut # (Auto) 5.6 (1.8-7.0) K/uL Lymph # (Auto) 1.1 (1.0-4.3) K/uL [place] # (Auto) 1.0 H (0.0-0.8) K/uL Eos # (Auto) 1.4 H (0.0-0.7) K/uL Baso # (Auto) 0.0 (0.0-0.2) K/uL PT (9.7-12.2) SECONDS INR APTT (21-34) SECONDS Sodium 134 (132-148) mmol/L Potassium 3.8 (3.6-5.2) mmol/L Chloride 95 L (98-107) mmol/L Carbon Dioxide 23 (22-30) mmol/L Anion Gap 20 (10-20) BUN 92 H (9-20) mg/dL Creatinine 7.5 H* D (0.8-1.5) mg/dL Est GFR ( Amer) 9 Est GFR (Non-Af Amer) 7 POC Glucose (mg/dL) 115 H (65-110) mg/dL Random Glucose 113 H (75-110) mg/dL Calcium 6.8 L (8.6-10.4) mg/dl Phosphorus 4.1 (2.5-4.5) mg/dL Magnesium 1.7 (1.6-2.3) mg/dL Total Bilirubin 0.4 (0.2-1.3) mg/dL AST 25 (17-59) U/L ALT 14 L D (21-72) U/L Alkaline Phosphatase 109 (38-126) U/L Total Creatine Kinase (55-170) U/L CK-MB (Mass) (0.0-3.38) ng/mL Troponin I (0.00-0.120) ng/mL Total Protein 6.9 (6.3-8.3) g/dL Albumin 3.3 L D (3.5-5.0) g/dL Globulin 3.6 (2.2-3.9) gm/dL Albumin/Globulin Ratio 0.9 L (1.0-2.1) PTH Intact Whole Molec (14-64) pg/mL 12/05/17 12/05/17 12/05/17 Range/Units 07:45 05:56 05:56 WBC (4.8-10.8) K/uL RBC (4.40-5.90) Mil/uL Hgb (12.0-18.0) g/dL Hct (35.0-51.0) % MCV (80.0-94.0) fL MCH (27.0-31.0) pg MCHC (33.0-37.0) g/dL RDW (11.5-14.5) % Plt Count (130-400) K/uL MPV (7.2-11.7) fL Neut % (Auto) (50.0-75.0) % Lymph % (Auto) (20.0-40.0) % [place] % (Auto) (0.0-10.0) % Eos % (Auto) (0.0-4.0) % Baso % (Auto) (0.0-2.0) % Neut # (Auto) (1.8-7.0) K/uL Lymph # (Auto) (1.0-4.3) K/uL [place] # (Auto) (0.0-0.8) K/uL Eos # (Auto) (0.0-0.7) K/uL Baso # (Auto) (0.0-0.2) K/uL PT 12.8 H (9.7-12.2) SECONDS INR 1.1 APTT 77 H D (21-34) SECONDS Sodium 136 (132-148) mmol/L Potassium 2.9 L (3.6-5.2) mmol/L Chloride 103 (98-107) mmol/L Carbon Dioxide 18 L (22-30) mmol/L Anion Gap 18 (10-20) BUN 77 H (9-20) mg/dL Creatinine 6.1 H (0.8-1.5) mg/dL Est GFR ( Amer) 11 Est GFR (Non-Af Amer) 9 POC Glucose (mg/dL) 113 H (65-110) mg/dL Random Glucose 93 (75-110) mg/dL Calcium 5.5 L* D (8.6-10.4) mg/dl Phosphorus 3.5 (2.5-4.5) mg/dL Magnesium 1.5 L (1.6-2.3) mg/dL Total Bilirubin 0.3 (0.2-1.3) mg/dL AST 16 L D (17-59) U/L ALT 18 L (21-72) U/L Alkaline Phosphatase 88 (38-126) U/L Total Creatine Kinase (55-170) U/L CK-MB (Mass) (0.0-3.38) ng/mL Troponin I (0.00-0.120) ng/mL Total Protein 5.5 L (6.3-8.3) g/dL Albumin 2.6 L D (3.5-5.0) g/dL Globulin 3.0 (2.2-3.9) gm/dL Albumin/Globulin Ratio 0.8 L (1.0-2.1) PTH Intact Whole Molec (14-64) pg/mL 04/16/18 04/15/18 04/13/18 Range/Units 05:56 21:08 17:41 WBC 8.6 (4.8-10.8) K/uL RBC 2.51 L (4.40-5.90) Mil/uL Hgb 7.4 L (12.0-18.0) g/dL Hct 22.1 L (35.0-51.0) % MCV 88.3 (80.0-94.0) fL MCH 29.5 (27.0-31.0) pg MCHC 33.4 (33.0-37.0) g/dL RDW 13.9 (11.5-14.5) % Plt Count 175 (130-400) K/uL MPV 10.7 (7.2-11.7) fL Neut % (Auto) 60.6 (50.0-75.0) % Lymph % (Auto) 12.8 L (20.0-40.0) % [place] % (Auto) 11.6 H (0.0-10.0) % Eos % (Auto) 14.5 H (0.0-4.0) % Baso % (Auto) 0.5 (0.0-2.0) % Neut # (Auto) 5.2 (1.8-7.0) K/uL Lymph # (Auto) 1.1 (1.0-4.3) K/uL [place] # (Auto) 1.0 H (0.0-0.8) K/uL Eos # (Auto) 1.3 H (0.0-0.7) K/uL Baso # (Auto) 0.0 (0.0-0.2) K/uL PT (9.7-12.2) SECONDS INR APTT (21-34) SECONDS Sodium (132-148) mmol/L Potassium (3.6-5.2) mmol/L Chloride (98-107) mmol/L Carbon Dioxide (22-30) mmol/L Anion Gap (10-20) BUN (9-20) mg/dL Creatinine (0.8-1.5) mg/dL Est GFR ( Amer) Est GFR (Non-Af Amer) POC Glucose (mg/dL) 225 H (65-110) mg/dL Random Glucose (75-110) mg/dL Calcium (8.6-10.4) mg/dl Phosphorus (2.5-4.5) mg/dL Magnesium (1.6-2.3) mg/dL Total Bilirubin (0.2-1.3) mg/dL AST (17-59) U/L ALT (21-72) U/L Alkaline Phosphatase (38-126) U/L Total Creatine Kinase (55-170) U/L CK-MB (Mass) (0.0-3.38) ng/mL Troponin I (0.00-0.120) ng/mL Total Protein (6.3-8.3) g/dL Albumin (3.5-5.0) g/dL Globulin (2.2-3.9) gm/dL Albumin/Globulin Ratio (1.0-2.1) PTH Intact Whole Molec 373 H (14-64) pg/mL Laboratory Results - last 24 hr 12/02/17 12/04/17 12/05/17 17:41 21:08 05:56 WBC 8.6 RBC 2.51 L Hgb 7.4 L Hct 22.1 L MCV 88.3 MCH 29.5 MCHC 33.4 RDW 13.9 Plt Count 175 MPV 10.7 Neut % (Auto) 60.6 Lymph % (Auto) 12.8 L [place] % (Auto) 11.6 H Eos % (Auto) 14.5 H Baso % (Auto) 0.5 Neut # (Auto) 5.2 Lymph # (Auto) 1.1 [place] # (Auto) 1.0 H Eos # (Auto) 1.3 H Baso # (Auto) 0.0 PT INR APTT Sodium Potassium Chloride Carbon Dioxide Anion Gap BUN Creatinine Est GFR ( Amer) Est GFR (Non-Af Amer) POC Glucose (mg/dL) 225 H Random Glucose Calcium Phosphorus Magnesium Total Bilirubin AST ALT Alkaline Phosphatase Total Creatine Kinase CK-MB (Mass) Troponin I Total Protein Albumin Globulin Albumin/Globulin Ratio PTH Intact Whole Molec 373 H 12/05/17 12/05/17 12/05/17 05:56 05:56 07:45 WBC RBC Hgb Hct MCV MCH MCHC RDW Plt Count MPV Neut % (Auto) Lymph % (Auto) [place] % (Auto) Eos % (Auto) Baso % (Auto) Neut # (Auto) Lymph # (Auto) [place] # (Auto) Eos # (Auto) Baso # (Auto) PT 12.8 H INR 1.1 APTT 77 H D Sodium 136 Potassium 2.9 L Chloride 103 Carbon Dioxide 18 L Anion Gap 18 BUN 77 H Creatinine 6.1 H Est GFR ( Amer) 11 Est GFR (Non-Af Amer) 9 POC Glucose (mg/dL) 113 H Random Glucose 93 Calcium 5.5 L* D Phosphorus 3.5 Magnesium 1.5 L Total Bilirubin 0.3 AST 16 L D ALT 18 L Alkaline Phosphatase 88 Total Creatine Kinase CK-MB (Mass) Troponin I Total Protein 5.5 L Albumin 2.6 L D Globulin 3.0 Albumin/Globulin Ratio 0.8 L PTH Intact Whole Molec 12/05/17 12/05/17 12/05/17 07:51 07:51 11:24 WBC 9.1 RBC 2.81 L Hgb 8.2 L Hct 24.5 L MCV 87.3 MCH 29.2 MCHC 33.4 RDW 13.9 Plt Count 188 MPV 9.6 Neut % (Auto) 61.4 Lymph % (Auto) 12.0 L [place] % (Auto) 10.6 H Eos % (Auto) 15.5 H Baso % (Auto) 0.5 Neut # (Auto) 5.6 Lymph # (Auto) 1.1 [place] # (Auto) 1.0 H Eos # (Auto) 1.4 H Baso # (Auto) 0.0 PT INR APTT Sodium 134 Potassium 3.8 Chloride 95 L Carbon Dioxide 23 Anion Gap 20 BUN 92 H Creatinine 7.5 H* D Est GFR ( Amer) 9 Est GFR (Non-Af Amer) 7 POC Glucose (mg/dL) 115 H Random Glucose 113 H Calcium 6.8 L Phosphorus 4.1 Magnesium 1.7 Total Bilirubin 0.4 AST 25 ALT 14 L D Alkaline Phosphatase 109 Total Creatine Kinase CK-MB (Mass) Troponin I Total Protein 6.9 Albumin 3.3 L D Globulin 3.6 Albumin/Globulin Ratio 0.9 L PTH Intact Whole Molec 12/05/17 12/05/17 12/05/17 16:04 17:21 17:21 WBC 5.0 RBC 2.59 L Hgb 7.4 L Hct 22.7 L MCV 87.6 MCH 28.7 MCHC 32.7 L RDW 13.6 Plt Count 171 MPV 9.8 Neut % (Auto) 69.1 Lymph % (Auto) 11.7 L [place] % (Auto) 5.5 Eos % (Auto) 13.2 H Baso % (Auto) 0.5 Neut # (Auto) 3.4 Lymph # (Auto) 0.6 L [place] # (Auto) 0.3 Eos # (Auto) 0.7 Baso # (Auto) 0.0 PT INR APTT Sodium 136 Potassium 3.8 Chloride 98 Carbon Dioxide 24 Anion Gap 18 BUN 92 H Creatinine 6.8 H Est GFR ( Amer) 10 Est GFR (Non-Af Amer) 8 POC Glucose (mg/dL) 114 H Random Glucose 128 H Calcium 6.7 L Phosphorus 4.4 Magnesium 1.8 Total Bilirubin 0.5 AST 17 D ALT 18 L D Alkaline Phosphatase 79 Total Creatine Kinase 67 CK-MB (Mass) 0.74 Troponin I 1.4000 H* Total Protein 6.5 Albumin 3.0 L Globulin 3.5 Albumin/Globulin Ratio 0.9 L PTH Intact Whole Molec Fingerstick Blood Sugar Results: 225 Critical Care Progress Note - Nutrition Nutrition: Nutrition Category Date Time Status Heart Healthy Diet [DIET] Diets 12/05/17 Dinner Active Assessment/Plan - Assessment and Plan (Free Text) Assessment: This is a 80 year old male with PMHx HTN, CHF who presented complaining of dyspnea. He was diagnosed with NSTEMI. Patient is for cardiac cath tomorrow. Neuro Awake, alert Cardio ASA 81 daily Coreg 3.125 BID Plavix 75 daily Lasix 40 mg PO daily Crestor 5 HS Pulm Saturating well on room air GI Heart Healthy Diet Pepcid 20 mg PO daily Endocrine Accuchecks Hemoglobin a1c 6.2 Renal nephro on consult temporary dialysis Heme/onc IV iron ordered Prophylaxis Pepcid 20 mg PO daily NPO after midnight Discussed with Dr. Monahan
[2017-12-06 06:22] LABS: BASO % 0.3 % (0.0-2.0); EOS # 1.2 K/uL (0.0-0.7); EOS % 14.8 % (0.0-4.0); HEMOGLOBIN 7.5 g/dL (12.0-18.0); LYMPH # 0.8 K/uL (1.0-4.3); LYMPH % 10.6 % (20.0-40.0); MEAN CELL VOLUME 87.4 fL (80.0-94.0); MEAN CORPUSCULAR HEMOGLOBIN 29.1 pg (27.0-31.0); MEAN CORPUSCULAR HGB CONC 33.3 g/dL (33.0-37.0); MEAN PLATELET VOLUME 10.4 fL (7.2-11.7); MONO # 0.9 K/uL (0.0-0.8); MONO % 10.9 % (0.0-10.0); NEUT % 63.4 % (50.0-75.0); RBC 2.57 Mil/uL (4.40-5.90); RED CELL DISTRIBUTION WIDTH 13.5 % (11.5-14.5); WHITE BLOOD COUNT 7.9 K/uL (4.8-10.8)
[2017-12-06 06:40] LABS: ALB/GLOB RATIO 0.9 (1.0-2.1); ALBUMIN 3.1 g/dL (3.5-5.0); CALCIUM 6.7 mg/dl (8.6-10.4)
--- NOTE | 2017-12-06 07:50 | HP ---
HISTORY OF PRESENT ILLNESS: This is 72-year-old male who was admitted with chest pain, shortness of breath, and the patient came to the ER, advised admission. hypertension. PHYSICAL EXAMINATION: GENERAL: The patient is awake, alert, and oriented. VITAL SIGNS: Temperature 98 and pulse 90. HEENT: Within normal limits. NECK: Supple. CHEST: Symmetrical. HEART: Regular. EXTREMITIES: No edema. . The patient . Patient on bedrest, cardiac monitoring, cardiology evaluation. Ronda Heaton MD
[2017-12-06] MEDS ORDERED: Iodixanol 320 MG/ML 200 ML BOTTLE IV ONE (08:57)
[2017-12-06 09:15] VITALS: O2SAT 100
[2017-12-06] MEDS ORDERED: Midazolam 2 MG/2 ML VIAL ONE ×3 (09:32→09:55)
[2017-12-06] MEDS ORDERED: EPINEPHrine 1 mg/ml (1:1000) Inj ONE (09:42)
[2017-12-06] MEDS ORDERED: Heparin 1,000 Units/500 ml NS IV ONE (09:42)
[2017-12-06] MEDS ORDERED: Phenylephrine 10 mg/ml Inj ONE ×2 (09:49→10:27)
[2017-12-06] MEDS ORDERED: Propofol 10 mg/ml Inj (20 ML) ONE (09:57)
--- NOTE | 2017-12-06 09:58 | PCM.ANES ---
Anesthesia Emergent Intubation - Diagnosis Working Diagnosis:: Vtach - Intubation Attempts Previous Number of Intubation Attempts:: 0 - Pre-Intubation Vital Signs Oxygen Delivery Method: Ambu-Bag Level Of Consciousness: Comatose/Unresponsive - Method of Intubation Intubation Method: Oral ETT Easy: Yes Atramatic: Yes - Intubation Devices Srinivasan Blade Size Used: 3 - Placement Confirmation Breath Sounds Present & Equal Bilaterally: Yes Positive EtCO2: Yes Recommendations: Ventilator
[2017-12-06] MEDS ORDERED: Propofol 10 mg/ml Inj (20 ML) IV SCH (10:00)
[2017-12-06 10:33] LABS: ARTERIAL BLOOD GAS HCO3 17.1 mmol/L (21-28); ARTERIAL BLOOD GAS HEMOGLOBIN 7.6 g/dL (11.7-17.4); ARTERIAL BLOOD GAS O2 SAT 98.3 % (95-98); ARTERIAL BLOOD GAS PCO2 28 mm/Hg (35-45); ARTERIAL BLOOD GAS PH 7.33 (7.35-7.45); ARTERIAL BLOOD GAS PO2 467 mm/Hg (80-100); ARTERIAL BLOOD GAS TCO2 15.7 mmol/L (22-28)
[2017-12-06] MEDS ORDERED: Heparin25000 units/250ml 1/2NS 25,000 UNITS/250 ML BAG IV ONE (10:33)
[2017-12-06] MEDS ORDERED: Heparin25000 units/250ml 1/2NS 25,000 UNITS/250 ML BAG IV PRN (10:48)
--- NOTE | 2017-12-06 10:59 | PCM.RRT ---
FOREST MANAGEMENT PROFESSOR Nurses Assessment - Situation Date: 12/06/17 FOREST MANAGEMENT PROFESSOR Location:: Medical Staff Services Coordinator FOREST MANAGEMENT PROFESSOR Called By: Physician - IV IV Inserted during FOREST MANAGEMENT PROFESSOR?: No New IV Insertion Tolerance: Excellent - Respiratory FOREST MANAGEMENT PROFESSOR Delivery Method: Intubated Received Nebulizer Treatments: No Was the Patient Ventilated with Bag/Mask 100% O2?: No Secretions Suctioned?: Yes - Ventilator Settings Mode: PRVC Ventilator Respiratory Rate Settin Ventilator Tidal Volume Settin PEEP/CPAP (cm H2O): 5 Pressure Support: 40 SAO2 %: 98 FIO2 (% Oxygen): 100 - Medication Medications Administered During FOREST MANAGEMENT PROFESSOR: heparin. levophed. diprivan. Epi x2 - Diagnostic Test Ordered EKG: No Chest X-Ray: Yes CT Scan: No - Stat Labs Ordered FOREST MANAGEMENT PROFESSOR Stat Labs Ordered: CBC, BMP, PT/PTT, ABG CPR started during FOREST MANAGEMENT PROFESSOR?: Yes - Recommendations 5) FOREST MANAGEMENT PROFESSOR Level of Care Recommendations: Transfer to ICU
[2017-12-06 11:38] LABS: BASO % 0.3 % (0.0-2.0); EOS # 1.1 K/uL (0.0-0.7); EOS % 8.9 % (0.0-4.0); HEMOGLOBIN 8.4 g/dL (12.0-18.0); LYMPH # 0.5 K/uL (1.0-4.3); LYMPH % 4.1 % (20.0-40.0); MEAN CELL VOLUME 88.6 fL (80.0-94.0); MEAN CORPUSCULAR HEMOGLOBIN 28.6 pg (27.0-31.0); MEAN CORPUSCULAR HGB CONC 32.2 g/dL (33.0-37.0); MEAN PLATELET VOLUME 9.5 fL (7.2-11.7); MONO % 7.5 % (0.0-10.0); NEUT # 10.1 K/uL (1.8-7.0); NEUT % 79.2 % (50.0-75.0); PLATELET COUNT 234 K/uL (130-400); RBC 2.95 Mil/uL (4.40-5.90); RED CELL DISTRIBUTION WIDTH 13.5 % (11.5-14.5); WHITE BLOOD COUNT 12.7 K/uL (4.8-10.8)
[2017-12-06] MEDS ORDERED: Propofol 10 mg/ml Inj (100 ml) IV SCH (11:45)
[2017-12-06 12:02] LABS: ALB/GLOB RATIO 0.9 (1.0-2.1); ALBUMIN 3.4 g/dL (3.5-5.0); CALCIUM 7.1 mg/dl (8.6-10.4)
[2017-12-06] MEDS: Propofol 10 mg/ml 1,000 MG/100 ML VIAL IV PRN ×2 (12:06→18:46)
[2017-12-06 12:17] LABS: EOSINOPHIL 5 % (0-4); LYMPHOCYTE 6 % (20-40); MONOCYTE 3 % (0-10); NEUTROPHIL 86 % (50-75); TOTAL CELLS COUNTED 100
[2017-12-06 12:18] LABS: PLATELET ESTIMATE NORMAL (NORMAL)
[2017-12-06 12:19] LABS: HYPOCHROMIC SLIGHT; MICROCYTOSIS SLIGHT; POLYCHROMIC SLIGHT
--- NOTE | 2017-12-06 13:12 | RAD ---
HISTORY: intubated COMPARISON: 12/02/2017. FINDINGS: LUNGS: Improvement in pulmonary edema/ multifocal infiltrates. PLEURA: No significant pleural effusion identified, no pneumothorax apparent. CARDIOVASCULAR: No radiographic findings to suggest acute or significant cardiovascular disease. OSSEOUS STRUCTURES: No significant abnormalities. VISUALIZED UPPER ABDOMEN: Normal. OTHER FINDINGS: Satisfactory position of recently placed endotracheal tube. IMPRESSION: No active disease. Satisfactory position of recently placed endotracheal tube.
--- NOTE | 2017-12-06 13:26 | CP.CCUPN ---
<Alonzo Macias - Last Filed: 12/06/17 15:18> CCU Subjective - Physician Review Subjective (Free Text): 12/05/17 18:34 Patient seen and examined. Patient is doing well and has no complaints at this time. Later during the day, the patient had syncopized during dialysis but quickly regained consciousness. He had an episode of bradycardia during dialysis. 12/06/17 13:58 Patient seen and examined. Patient had a code blue in cardiac cath today. ACLS protocol followed. Patient was intubated during the code. Per cardiology, patient has multi-vessel disease. Patient may be transferred out for intervention. CCU Objective - Vital Signs / Intake & Output Vital Signs (Last 4 hours): Vital Signs Pulse Resp BP Pulse Ox 12/06/17 11:00 84 12 143/71 100 Intake and Output (Last 8hrs): Intake & Output 12/05/17 12/06/17 12/06/17 22:59 06:59 14:59 Intake Total 1029.2 0 63 Output Total 600 600 0 Balance 429.2 -600 63 Weight 156 lb 8.451 oz Intake: IV 63 Intake, IV Amount 609.2 Left Antecubital 600 Right Hand 9.2 Oral 420 0 0 Output: Urine 600 600 0 Urine, Voided 600 600 0 - Physical Exam Head: Positive for: Atraumatic, Normocephalic Pupils: Positive for: PERRL Extroacular Muscles: Positive for: EOMI Mouth: Positive for: Moist Mucous Membranes Respiratory/Chest: Positive for: Clear to Auscultation. Negative for: Wheezes, Rales, Rhonchi Cardiovascular: Positive for: Regular Rate and Rhythm, Normal S1, S2 Abdomen: Positive for: Normal Bowel Sounds. Negative for: Tenderness, Distention Upper Extremity: Positive for: Normal Inspection Lower Extremity: Positive for: Other (dialysis catheter right groin. sheath in the left groin.) Neurological: Positive for: GCS=15 Skin: Positive for: Warm, Dry Psychiatric: Positive for: Alert, Oriented x 3 - Medications Active Medications: Active Medications Generic Name Dose Route Start Last Admin Trade Name Freq PRN Reason Stop Dose Admin Aspirin 81 mg 12/06/17 10:00 12/06/17 12:37 Ecotrin PO Not Given DAILY [facility] Epoetin Riccardo 10,000 unit 12/07/17 09:00 Procrit IV MWF [facility] Famotidine 20 mg 12/02/17 10:00 12/06/17 12:40 Pepcid PO Not Given DAILY SO Ferric Sodium Gluconate Complex 125 mg 12/05/17 12:15 12/05/17 14:34 Ferrlecit IVPB 12/13/17 12:16 125 mg DAILY SO Administration Furosemide 40 mg 12/06/17 10:00 12/06/17 12:39 Lasix PO Not Given DAILY SO Heparin Sodium/Sodium Chloride 25,000 units in 250 mls @ 8.52 mls/hr 12/06/17 10:48 12/06/17 11:00 Heparin 01444 Units/250ml 1/2 Normal Saline IV 12 units/kg/hr .Q24H PRN 8.52 mls/hr ADJUST RATE PER PROTOCOL Administration Protocol 12 UNITS/KG/HR Norepinephrine Bitartrate 4 mg 254 mls @ 15.24 mls/hr 12/06/17 10:52 12:15 / Sodium Chloride IV 2 mcg/min .[id number] PRN 7.62 mls/hr TITRATE PER MD ORDER Titration Protocol 4 MCG/MIN Propofol 1,000 mg in 100 mls @ 2.13 mls/hr 12/06/17 11:39 12/06/17 12:30 Diprivan IV 10 mcg/kg/min .Q24H PRN 4.26 mls/hr TITRATE PER MD ORDER Titration Protocol 5 MCG/KG/MIN Rosuvastatin Calcium 5 mg 12/02/17 22:00 12/05/17 21:57 Crestor PO 5 mg HS SO Administration - Patient Studies Lab Studies: Lab Studies 12/06/17 12/06/17 12/06/17 Range/Units 11:35 11:35 11:34 WBC 12.7 H D (4.8-10.8) K/uL RBC 2.95 L (4.40-5.90) Mil/uL Hgb 8.4 L (12.0-18.0) g/dL Hct 26.2 L (35.0-51.0) % MCV 88.6 (80.0-94.0) fL MCH 28.6 (27.0-31.0) pg MCHC 32.2 L (33.0-37.0) g/dL RDW 13.5 (11.5-14.5) % Plt Count 234 (130-400) K/uL MPV 9.5 (7.2-11.7) fL Neut % (Auto) 79.2 H (50.0-75.0) % Lymph % (Auto) 4.1 L (20.0-40.0) % Lyon % (Auto) 7.5 (0.0-10.0) % Eos % (Auto) 8.9 H (0.0-4.0) % Baso % (Auto) 0.3 (0.0-2.0) % Neut # (Auto) 10.1 H (1.8-7.0) K/uL Lymph # (Auto) 0.5 L (1.0-4.3) K/uL Lyon # (Auto) 1.0 H (0.0-0.8) K/uL Eos # (Auto) 1.1 H (0.0-0.7) K/uL Baso # (Auto) 0.0 (0.0-0.2) K/uL Neutrophils % (Manual) 86 H (50-75) % Lymphocytes % (Manual) 6 L (20-40) % Monocytes % (Manual) 3 (0-10) % Eosinophils % (Manual) 5 H (0-4) % Platelet Estimate Normal (NORMAL) Polychromasia Slight Hypochromasia (manual) Slight Microcytosis (manual) Slight Puncture Site pCO2 (35-45) mm/Hg pO2 (80-100) mm/Hg HCO3 (21-28) mmol/L ABG pH (7.35-7.45) ABG Total CO2 (22-28) mmol/L ABG O2 Saturation (95-98) % ABG Base Excess (-2.0-3.0) mmol/L ABG Hemoglobin (11.7-17.4) g/dL ABG Carboxyhemoglobin (0.5-1.5) % POC ABG HHb (Measured) (0.0-5.0) % ABG Methemoglobin (0.0-3.0) % Kali Test A-a O2 Difference mm/Hg Respiratory Index Hgb O2 Saturation (95.0-98.0) % Mechanical Rate FiO2 % Tidal Volume PEEP Sodium 137 (132-148) mmol/L Potassium 4.2 (3.6-5.2) mmol/L Chloride 98 (98-107) mmol/L Carbon Dioxide 20 L (22-30) mmol/L Anion Gap 24 H (10-20) BUN 90 H (9-20) mg/dL Creatinine 7.9 H* (0.8-1.5) mg/dL Est GFR ( Amer) 8 Est GFR (Non-Af Amer) 7 POC Glucose (mg/dL) 146 H (65-110) mg/dL Random Glucose 150 H (75-110) mg/dL Calcium 7.1 L (8.6-10.4) mg/dl Phosphorus (2.5-4.5) mg/dL Magnesium (1.6-2.3) mg/dL Total Bilirubin 0.5 (0.2-1.3) mg/dL AST 21 (17-59) U/L ALT 21 (21-72) U/L Alkaline Phosphatase 113 (38-126) U/L Total Creatine Kinase (55-170) U/L CK-MB (Mass) (0.0-3.38) ng/mL Troponin I (0.00-0.120) ng/mL Total Protein 7.2 (6.3-8.3) g/dL Albumin 3.4 L (3.5-5.0) g/dL Globulin 3.8 (2.2-3.9) gm/dL Albumin/Globulin Ratio 0.9 L (1.0-2.1) PTH Intact Whole Molec (14-64) pg/mL 12/06/17 12/06/17 12/06/17 Range/Units 10:25 07:08 06:14 WBC (4.8-10.8) K/uL RBC (4.40-5.90) Mil/uL Hgb (12.0-18.0) g/dL Hct (35.0-51.0) % MCV (80.0-94.0) fL MCH (27.0-31.0) pg MCHC (33.0-37.0) g/dL RDW (11.5-14.5) % Plt Count (130-400) K/uL MPV (7.2-11.7) fL Neut % (Auto) (50.0-75.0) % Lymph % (Auto) (20.0-40.0) % Lyon % (Auto) (0.0-10.0) % Eos % (Auto) (0.0-4.0) % Baso % (Auto) (0.0-2.0) % Neut # (Auto) (1.8-7.0) K/uL Lymph # (Auto) (1.0-4.3) K/uL Lyon # (Auto) (0.0-0.8) K/uL Eos # (Auto) (0.0-0.7) K/uL Baso # (Auto) (0.0-0.2) K/uL Neutrophils % (Manual) (50-75) % Lymphocytes % (Manual) (20-40) % Monocytes % (Manual) (0-10) % Eosinophils % (Manual) (0-4) % Platelet Estimate (NORMAL) Polychromasia Hypochromasia (manual) Microcytosis (manual) Puncture Site foundry laborer coreroom pCO2 28 L (35-45) mm/Hg pO2 467 H (80-100) mm/Hg HCO3 17.1 L (21-28) mmol/L ABG pH 7.33 L (7.35-7.45) ABG Total CO2 15.7 L (22-28) mmol/L ABG O2 Saturation 98.3 H (95-98) % ABG Base Excess -10.1 L (-2.0-3.0) mmol/L ABG Hemoglobin 7.6 L (11.7-17.4) g/dL ABG Carboxyhemoglobin 0.3 L (0.5-1.5) % POC ABG HHb (Measured) 1.7 (0.0-5.0) % ABG Methemoglobin 0.9 (0.0-3.0) % Kali Test Na A-a O2 Difference 211.0 mm/Hg Respiratory Index 0.5 Hgb O2 Saturation 97.2 (95.0-98.0) % Mechanical Rate 14 FiO2 100.0 % Tidal Volume 500 PEEP 5 Sodium 137 (132-148) mmol/L Potassium 3.8 (3.6-5.2) mmol/L Chloride 100 (98-107) mmol/L Carbon Dioxide 21 L (22-30) mmol/L Anion Gap 20 (10-20) BUN 95 H (9-20) mg/dL Creatinine 7.3 H (0.8-1.5) mg/dL Est GFR ( Amer) 9 Est GFR (Non-Af Amer) 7 POC Glucose (mg/dL) 101 (65-110) mg/dL Random Glucose 97 (75-110) mg/dL Calcium 6.7 L (8.6-10.4) mg/dl Phosphorus 5.0 H (2.5-4.5) mg/dL Magnesium 1.7 (1.6-2.3) mg/dL Total Bilirubin 0.4 (0.2-1.3) mg/dL AST 18 (17-59) U/L ALT 23 (21-72) U/L Alkaline Phosphatase 85 (38-126) U/L Total Creatine Kinase (55-170) U/L CK-MB (Mass) (0.0-3.38) ng/mL Troponin I (0.00-0.120) ng/mL Total Protein 6.6 (6.3-8.3) g/dL Albumin 3.1 L (3.5-5.0) g/dL Globulin 3.5 (2.2-3.9) gm/dL Albumin/Globulin Ratio 0.9 L (1.0-2.1) PTH Intact Whole Molec (14-64) pg/mL 12/06/17 12/05/17 12/05/17 Range/Units 06:12 21:08 17:21 WBC 7.9 D (4.8-10.8) K/uL RBC 2.57 L (4.40-5.90) Mil/uL Hgb 7.5 L (12.0-18.0) g/dL Hct 22.5 L (35.0-51.0) % MCV 87.4 (80.0-94.0) fL MCH 29.1 (27.0-31.0) pg MCHC 33.3 (33.0-37.0) g/dL RDW 13.5 (11.5-14.5) % Plt Count 183 (130-400) K/uL MPV 10.4 (7.2-11.7) fL Neut % (Auto) 63.4 (50.0-75.0) % Lymph % (Auto) 10.6 L (20.0-40.0) % Lyon % (Auto) 10.9 H (0.0-10.0) % Eos % (Auto) 14.8 H (0.0-4.0) % Baso % (Auto) 0.3 (0.0-2.0) % Neut # (Auto) 5.0 (1.8-7.0) K/uL Lymph # (Auto) 0.8 L (1.0-4.3) K/uL Lyon # (Auto) 0.9 H (0.0-0.8) K/uL Eos # (Auto) 1.2 H (0.0-0.7) K/uL Baso # (Auto) 0.0 (0.0-0.2) K/uL Neutrophils % (Manual) (50-75) % Lymphocytes % (Manual) (20-40) % Monocytes % (Manual) (0-10) % Eosinophils % (Manual) (0-4) % Platelet Estimate (NORMAL) Polychromasia Hypochromasia (manual) Microcytosis (manual) Puncture Site pCO2 (35-45) mm/Hg pO2 (80-100) mm/Hg HCO3 (21-28) mmol/L ABG pH (7.35-7.45) ABG Total CO2 (22-28) mmol/L ABG O2 Saturation (95-98) % ABG Base Excess (-2.0-3.0) mmol/L ABG Hemoglobin (11.7-17.4) g/dL ABG Carboxyhemoglobin (0.5-1.5) % POC ABG HHb (Measured) (0.0-5.0) % ABG Methemoglobin (0.0-3.0) % Kali Test A-a O2 Difference mm/Hg Respiratory Index Hgb O2 Saturation (95.0-98.0) % Mechanical Rate FiO2 % Tidal Volume PEEP Sodium 136 (132-148) mmol/L Potassium 3.8 (3.6-5.2) mmol/L Chloride 98 (98-107) mmol/L Carbon Dioxide 24 (22-30) mmol/L Anion Gap 18 (10-20) BUN 92 H (9-20) mg/dL Creatinine 6.8 H (0.8-1.5) mg/dL Est GFR ( Amer) 10 Est GFR (Non-Af Amer) 8 POC Glucose (mg/dL) 211 H (65-110) mg/dL Random Glucose 128 H (75-110) mg/dL Calcium 6.7 L (8.6-10.4) mg/dl Phosphorus 4.4 (2.5-4.5) mg/dL Magnesium 1.8 (1.6-2.3) mg/dL Total Bilirubin 0.5 (0.2-1.3) mg/dL AST 17 D (17-59) U/L ALT 18 L D (21-72) U/L Alkaline Phosphatase 79 (38-126) U/L Total Creatine Kinase 67 (55-170) U/L CK-MB (Mass) 0.74 (0.0-3.38) ng/mL Troponin I 1.4000 H* (0.00-0.120) ng/mL Total Protein 6.5 (6.3-8.3) g/dL Albumin 3.0 L (3.5-5.0) g/dL Globulin 3.5 (2.2-3.9) gm/dL Albumin/Globulin Ratio 0.9 L (1.0-2.1) PTH Intact Whole Molec (14-64) pg/mL 12/05/17 12/05/17 12/02/17 Range/Units 17:21 16:04 17:41 WBC 5.0 (4.8-10.8) K/uL RBC 2.59 L (4.40-5.90) Mil/uL Hgb 7.4 L (12.0-18.0) g/dL Hct 22.7 L (35.0-51.0) % MCV 87.6 (80.0-94.0) fL MCH 28.7 (27.0-31.0) pg MCHC 32.7 L (33.0-37.0) g/dL RDW 13.6 (11.5-14.5) % Plt Count 171 (130-400) K/uL MPV 9.8 (7.2-11.7) fL Neut % (Auto) 69.1 (50.0-75.0) % Lymph % (Auto) 11.7 L (20.0-40.0) % Lyon % (Auto) 5.5 (0.0-10.0) % Eos % (Auto) 13.2 H (0.0-4.0) % Baso % (Auto) 0.5 (0.0-2.0) % Neut # (Auto) 3.4 (1.8-7.0) K/uL Lymph # (Auto) 0.6 L (1.0-4.3) K/uL Lyon # (Auto) 0.3 (0.0-0.8) K/uL Eos # (Auto) 0.7 (0.0-0.7) K/uL Baso # (Auto) 0.0 (0.0-0.2) K/uL Neutrophils % (Manual) (50-75) % Lymphocytes % (Manual) (20-40) % Monocytes % (Manual) (0-10) % Eosinophils % (Manual) (0-4) % Platelet Estimate (NORMAL) Polychromasia Hypochromasia (manual) Microcytosis (manual) Puncture Site pCO2 (35-45) mm/Hg pO2 (80-100) mm/Hg HCO3 (21-28) mmol/L ABG pH (7.35-7.45) ABG Total CO2 (22-28) mmol/L ABG O2 Saturation (95-98) % ABG Base Excess (-2.0-3.0) mmol/L ABG Hemoglobin (11.7-17.4) g/dL ABG Carboxyhemoglobin (0.5-1.5) % POC ABG HHb (Measured) (0.0-5.0) % ABG Methemoglobin (0.0-3.0) % Kali Test A-a O2 Difference mm/Hg Respiratory Index Hgb O2 Saturation (95.0-98.0) % Mechanical Rate FiO2 % Tidal Volume PEEP Sodium (132-148) mmol/L Potassium (3.6-5.2) mmol/L Chloride (98-107) mmol/L Carbon Dioxide (22-30) mmol/L Anion Gap (10-20) BUN (9-20) mg/dL Creatinine (0.8-1.5) mg/dL Est GFR ( Amer) Est GFR (Non-Af Amer) POC Glucose (mg/dL) 114 H (65-110) mg/dL Random Glucose (75-110) mg/dL Calcium (8.6-10.4) mg/dl Phosphorus (2.5-4.5) mg/dL Magnesium (1.6-2.3) mg/dL Total Bilirubin (0.2-1.3) mg/dL AST (17-59) U/L ALT (21-72) U/L Alkaline Phosphatase (38-126) U/L Total Creatine Kinase (55-170) U/L CK-MB (Mass) (0.0-3.38) ng/mL Troponin I (0.00-0.120) ng/mL Total Protein (6.3-8.3) g/dL Albumin (3.5-5.0) g/dL Globulin (2.2-3.9) gm/dL Albumin/Globulin Ratio (1.0-2.1) PTH Intact Whole Molec 373 H (14-64) pg/mL Laboratory Results - last 24 hr 12/02/17 12/05/17 12/05/17 17:41 16:04 17:21 WBC 5.0 RBC 2.59 L Hgb 7.4 L Hct 22.7 L MCV 87.6 MCH 28.7 MCHC 32.7 L RDW 13.6 Plt Count 171 MPV 9.8 Neut % (Auto) 69.1 Lymph % (Auto) 11.7 L Lyon % (Auto) 5.5 Eos % (Auto) 13.2 H Baso % (Auto) 0.5 Neut # (Auto) 3.4 Lymph # (Auto) 0.6 L Lyon # (Auto) 0.3 Eos # (Auto) 0.7 Baso # (Auto) 0.0 Neutrophils % (Manual) Lymphocytes % (Manual) Monocytes % (Manual) Eosinophils % (Manual) Platelet Estimate Polychromasia Hypochromasia (manual) Microcytosis (manual) Puncture Site pCO2 pO2 HCO3 ABG pH ABG Total CO2 ABG O2 Saturation ABG Base Excess ABG Hemoglobin ABG Carboxyhemoglobin POC ABG HHb (Measured) ABG Methemoglobin Kali Test A-a O2 Difference Respiratory Index Hgb O2 Saturation Mechanical Rate FiO2 Tidal Volume PEEP Sodium Potassium Chloride Carbon Dioxide Anion Gap BUN Creatinine Est GFR ( Amer) Est GFR (Non-Af Amer) POC Glucose (mg/dL) 114 H Random Glucose Calcium Phosphorus Magnesium Total Bilirubin AST ALT Alkaline Phosphatase Total Creatine Kinase CK-MB (Mass) Troponin I Total Protein Albumin Globulin Albumin/Globulin Ratio PTH Intact Whole Molec 373 H 12/05/17 12/05/17 12/06/17 17:21 21:08 06:12 WBC 7.9 D RBC 2.57 L Hgb 7.5 L Hct 22.5 L MCV 87.4 MCH 29.1 MCHC 33.3 RDW 13.5 Plt Count 183 MPV 10.4 Neut % (Auto) 63.4 Lymph % (Auto) 10.6 L Lyon % (Auto) 10.9 H Eos % (Auto) 14.8 H Baso % (Auto) 0.3 Neut # (Auto) 5.0 Lymph # (Auto) 0.8 L Lyon # (Auto) 0.9 H Eos # (Auto) 1.2 H Baso # (Auto) 0.0 Neutrophils % (Manual) Lymphocytes % (Manual) Monocytes % (Manual) Eosinophils % (Manual) Platelet Estimate Polychromasia Hypochromasia (manual) Microcytosis (manual) Puncture Site pCO2 pO2 HCO3 ABG pH ABG Total CO2 ABG O2 Saturation ABG Base Excess ABG Hemoglobin ABG Carboxyhemoglobin POC ABG HHb (Measured) ABG Methemoglobin Kali Test A-a O2 Difference Respiratory Index Hgb O2 Saturation Mechanical Rate FiO2 Tidal Volume PEEP Sodium 136 Potassium 3.8 Chloride 98 Carbon Dioxide 24 Anion Gap 18 BUN 92 H Creatinine 6.8 H Est GFR ( Amer) 10 Est GFR (Non-Af Amer) 8 POC Glucose (mg/dL) 211 H Random Glucose 128 H Calcium 6.7 L Phosphorus 4.4 Magnesium 1.8 Total Bilirubin 0.5 AST 17 D ALT 18 L D Alkaline Phosphatase 79 Total Creatine Kinase 67 CK-MB (Mass) 0.74 Troponin I 1.4000 H* Total Protein 6.5 Albumin 3.0 L Globulin 3.5 Albumin/Globulin Ratio 0.9 L PTH Intact Whole Molec 12/06/17 12/06/17 12/06/17 06:14 07:08 10:25 WBC RBC Hgb Hct MCV MCH MCHC RDW Plt Count MPV Neut % (Auto) Lymph % (Auto) Lyon % (Auto) Eos % (Auto) Baso % (Auto) Neut # (Auto) Lymph # (Auto) Lyon # (Auto) Eos # (Auto) Baso # (Auto) Neutrophils % (Manual) Lymphocytes % (Manual) Monocytes % (Manual) Eosinophils % (Manual) Platelet Estimate Polychromasia Hypochromasia (manual) Microcytosis (manual) Puncture Site foundry laborer coreroom pCO2 28 L pO2 467 H HCO3 17.1 L ABG pH 7.33 L ABG Total CO2 15.7 L ABG O2 Saturation 98.3 H ABG Base Excess -10.1 L ABG Hemoglobin 7.6 L ABG Carboxyhemoglobin 0.3 L POC ABG HHb (Measured) 1.7 ABG Methemoglobin 0.9 Kali Test Na A-a O2 Difference 211.0 Respiratory Index 0.5 Hgb O2 Saturation 97.2 Mechanical Rate 14 FiO2 100.0 Tidal Volume 500 PEEP 5 Sodium 137 Potassium 3.8 Chloride 100 Carbon Dioxide 21 L Anion Gap 20 BUN 95 H Creatinine 7.3 H Est GFR ( Amer) 9 Est GFR (Non-Af Amer) 7 POC Glucose (mg/dL) 101 Random Glucose 97 Calcium 6.7 L Phosphorus 5.0 H Magnesium 1.7 Total Bilirubin 0.4 AST 18 ALT 23 Alkaline Phosphatase 85 Total Creatine Kinase CK-MB (Mass) Troponin I Total Protein 6.6 Albumin 3.1 L Globulin 3.5 Albumin/Globulin Ratio 0.9 L PTH Intact Whole Molec 12/06/17 12/06/17 12/06/17 11:34 11:35 11:35 WBC 12.7 H D RBC 2.95 L Hgb 8.4 L Hct 26.2 L MCV 88.6 MCH 28.6 MCHC 32.2 L RDW 13.5 Plt Count 234 MPV 9.5 Neut % (Auto) 79.2 H Lymph % (Auto) 4.1 L Lyon % (Auto) 7.5 Eos % (Auto) 8.9 H Baso % (Auto) 0.3 Neut # (Auto) 10.1 H Lymph # (Auto) 0.5 L Lyon # (Auto) 1.0 H Eos # (Auto) 1.1 H Baso # (Auto) 0.0 Neutrophils % (Manual) 86 H Lymphocytes % (Manual) 6 L Monocytes % (Manual) 3 Eosinophils % (Manual) 5 H Platelet Estimate Normal Polychromasia Slight Hypochromasia (manual) Slight Microcytosis (manual) Slight Puncture Site pCO2 pO2 HCO3 ABG pH ABG Total CO2 ABG O2 Saturation ABG Base Excess ABG Hemoglobin ABG Carboxyhemoglobin POC ABG HHb (Measured) ABG Methemoglobin Kali Test A-a O2 Difference Respiratory Index Hgb O2 Saturation Mechanical Rate FiO2 Tidal Volume PEEP Sodium 137 Potassium 4.2 Chloride 98 Carbon Dioxide 20 L Anion Gap 24 H BUN 90 H Creatinine 7.9 H* Est GFR ( Amer) 8 Est GFR (Non-Af Amer) 7 POC Glucose (mg/dL) 146 H Random Glucose 150 H Calcium 7.1 L Phosphorus Magnesium Total Bilirubin 0.5 AST 21 ALT 21 Alkaline Phosphatase 113 Total Creatine Kinase CK-MB (Mass) Troponin I Total Protein 7.2 Albumin 3.4 L Globulin 3.8 Albumin/Globulin Ratio 0.9 L PTH Intact Whole Molec Fingerstick Blood Sugar Results: 211 Critical Care Progress Note - Nutrition Nutrition: Nutrition Category Date Time Status NPO Diet [DIET] Diets 12/06/17 Breakfast Active Assessment/Plan - Assessment and Plan (Free Text) Assessment: This is a 80 year old male with PMHx HTN, CHF who presented complaining of dyspnea. He was diagnosed with NSTEMI. Patient has multi-vessel disease as seen on cardiac cath. He is to be transferred under the care of Dr. Tinoco for CABG. Neuro Intubated and sedated on Diprivan Cardio ASA 81 daily Coreg was discontinued due to hypotension Plavix 75 daily Lasix 40 mg PO daily Crestor 5 HS Pulm Saturating well on room air GI Heart Healthy Diet Pepcid 20 mg PO daily Endocrine Accuchecks Hemoglobin a1c 6.2 Renal nephro on consult temporary dialysis MWF Procrit MWF Heme/onc IV iron ordered Prophylaxis Pepcid 20 mg PO daily NPO Disposition: Patient is to be transferred to [facility] [place] CABG. Discussed with Dr. Briones <Trae Briones S - Last Filed: 12/06/17 15:58> CCU Objective - Vital Signs / Intake & Output Vital Signs (Last 4 hours): Vital Signs Temp Pulse Resp BP Pulse Ox 12/06/17 14:00 74 10 L 100 12/06/17 13:59 75 11 L 91/46 L 100 12/06/17 13:58 73 17 88/50 L 100 12/06/17 13:30 78 14 76/48 L 100 12/06/17 13:00 77 13 100 12/06/17 12:59 78 13 88/50 L 100 12/06/17 12:28 81 13 131/62 100 12/06/17 12:00 97.7 F 81 100 12/06/17 11:58 82 18 143/72 100 Intake and Output (Last 8hrs): Intake & Output 12/06/17 12/06/17 12/06/17 06:59 14:59 22:59 Intake Total 0 311.0 35.8 Output Total 600 0 0 Balance -600 311.0 35.8 Weight 156 lb 8.451 oz Intake: IV 75 Intake, IV Amount 236.0 35.8 LT AC side port 45 Left Antecubital 108 Left Forearm 21.5 12.8 Left Hand 24 8 Rt Femoral HD catheter 37.5 15 Oral 0 0 Output: Urine 600 0 0 Urine, Voided 600 0 0 - Medications Active Medications: Active Medications Generic Name Dose Route Start Last Admin Trade Name Freq PRN Reason Stop Dose Admin Aspirin 81 mg 12/06/17 10:00 12/06/17 12:37 Ecotrin PO Not Given DAILY [facility] Epoetin Riccardo 10,000 unit 12/07/17 09:00 Procrit IV MWF [facility] Famotidine 20 mg 12/02/17 10:00 12/06/17 12:40 Pepcid PO Not Given DAILY [facility] Ferric Sodium Gluconate Complex 125 mg 12/05/17 12:15 12/06/17 13:57 Ferrlecit IVPB 12/13/17 12:16 125 mg DAILY SO Administration Heparin Sodium/Sodium Chloride 25,000 units in 250 mls @ 8.52 mls/hr 12/06/17 10:48 12/06/17 11:00 Heparin 74270 Units/250ml 1/2 Normal Saline IV 12 units/kg/hr .Q24H PRN 8.52 mls/hr ADJUST RATE PER PROTOCOL Administration Protocol 12 UNITS/KG/HR Norepinephrine Bitartrate 4 mg 254 mls @ 15.24 mls/hr 12/06/17 10:52 13:30 / Sodium Chloride IV 4 mcg/min .[id number] PRN 15.24 mls/hr TITRATE PER MD ORDER Titration Protocol 4 MCG/MIN Propofol 1,000 mg in 100 mls @ 2.13 mls/hr 12/06/17 11:39 12/06/17 13:30 Diprivan IV 30 mcg/kg/min .Q24H PRN 12.78 mls/hr TITRATE PER MD ORDER Titration Protocol 5 MCG/KG/MIN Rosuvastatin Calcium 5 mg 12/02/17 22:00 12/05/17 21:57 Crestor PO 5 mg HS SO Administration - Patient Studies Lab Studies: Lab Studies 12/06/17 12/06/17 12/06/17 Range/Units 11:35 11:35 11:34 WBC 12.7 H D (4.8-10.8) K/uL RBC 2.95 L (4.40-5.90) Mil/uL Hgb 8.4 L (12.0-18.0) g/dL Hct 26.2 L (35.0-51.0) % MCV 88.6 (80.0-94.0) fL MCH 28.6 (27.0-31.0) pg MCHC 32.2 L (33.0-37.0) g/dL RDW 13.5 (11.5-14.5) % Plt Count 234 (130-400) K/uL MPV 9.5 (7.2-11.7) fL Neut % (Auto) 79.2 H (50.0-75.0) % Lymph % (Auto) 4.1 L (20.0-40.0) % Lyon % (Auto) 7.5 (0.0-10.0) % Eos % (Auto) 8.9 H (0.0-4.0) % Baso % (Auto) 0.3 (0.0-2.0) % Neut # (Auto) 10.1 H (1.8-7.0) K/uL Lymph # (Auto) 0.5 L (1.0-4.3) K/uL Lyon # (Auto) 1.0 H (0.0-0.8) K/uL Eos # (Auto) 1.1 H (0.0-0.7) K/uL Baso # (Auto) 0.0 (0.0-0.2) K/uL Neutrophils % (Manual) 86 H (50-75) % Lymphocytes % (Manual) 6 L (20-40) % Monocytes % (Manual) 3 (0-10) % Eosinophils % (Manual) 5 H (0-4) % Platelet Estimate Normal (NORMAL) Polychromasia Slight Hypochromasia (manual) Slight Microcytosis (manual) Slight Puncture Site pCO2 (35-45) mm/Hg pO2 (80-100) mm/Hg HCO3 (21-28) mmol/L ABG pH (7.35-7.45) ABG Total CO2 (22-28) mmol/L ABG O2 Saturation (95-98) % ABG Base Excess (-2.0-3.0) mmol/L ABG Hemoglobin (11.7-17.4) g/dL ABG Carboxyhemoglobin (0.5-1.5) % POC ABG HHb (Measured) (0.0-5.0) % ABG Methemoglobin (0.0-3.0) % Kali Test A-a O2 Difference mm/Hg Respiratory Index Hgb O2 Saturation (95.0-98.0) % Mechanical Rate FiO2 % Tidal Volume PEEP Sodium 137 (132-148) mmol/L Potassium 4.2 (3.6-5.2) mmol/L Chloride 98 (98-107) mmol/L Carbon Dioxide 20 L (22-30) mmol/L Anion Gap 24 H (10-20) BUN 90 H (9-20) mg/dL Creatinine 7.9 H* (0.8-1.5) mg/dL Est GFR ( Amer) 8 Est GFR (Non-Af Amer) 7 POC Glucose (mg/dL) 146 H (65-110) mg/dL Random Glucose 150 H (75-110) mg/dL Calcium 7.1 L (8.6-10.4) mg/dl Phosphorus (2.5-4.5) mg/dL Magnesium (1.6-2.3) mg/dL Total Bilirubin 0.5 (0.2-1.3) mg/dL AST 21 (17-59) U/L ALT 21 (21-72) U/L Alkaline Phosphatase 113 (38-126) U/L Total Creatine Kinase (55-170) U/L CK-MB (Mass) (0.0-3.38) ng/mL Troponin I (0.00-0.120) ng/mL Total Protein 7.2 (6.3-8.3) g/dL Albumin 3.4 L (3.5-5.0) g/dL Globulin 3.8 (2.2-3.9) gm/dL Albumin/Globulin Ratio 0.9 L (1.0-2.1) 12/06/17 12/06/17 12/06/17 Range/Units 10:25 07:08 06:14 WBC (4.8-10.8) K/uL RBC (4.40-5.90) Mil/uL Hgb (12.0-18.0) g/dL Hct (35.0-51.0) % MCV (80.0-94.0) fL MCH (27.0-31.0) pg MCHC (33.0-37.0) g/dL RDW (11.5-14.5) % Plt Count (130-400) K/uL MPV (7.2-11.7) fL Neut % (Auto) (50.0-75.0) % Lymph % (Auto) (20.0-40.0) % Lyon % (Auto) (0.0-10.0) % Eos % (Auto) (0.0-4.0) % Baso % (Auto) (0.0-2.0) % Neut # (Auto) (1.8-7.0) K/uL Lymph # (Auto) (1.0-4.3) K/uL Lyon # (Auto) (0.0-0.8) K/uL Eos # (Auto) (0.0-0.7) K/uL Baso # (Auto) (0.0-0.2) K/uL Neutrophils % (Manual) (50-75) % Lymphocytes % (Manual) (20-40) % Monocytes % (Manual) (0-10) % Eosinophils % (Manual) (0-4) % Platelet Estimate (NORMAL) Polychromasia Hypochromasia (manual) Microcytosis (manual) Puncture Site [employer] coreroom pCO2 28 L (35-45) mm/Hg pO2 467 H (80-100) mm/Hg HCO3 17.1 L (21-28) mmol/L ABG pH 7.33 L (7.35-7.45) ABG Total CO2 15.7 L (22-28) mmol/L ABG O2 Saturation 98.3 H (95-98) % ABG Base Excess -10.1 L (-2.0-3.0) mmol/L ABG Hemoglobin 7.6 L (11.7-17.4) g/dL ABG Carboxyhemoglobin 0.3 L (0.5-1.5) % POC ABG HHb (Measured) 1.7 (0.0-5.0) % ABG Methemoglobin 0.9 (0.0-3.0) % Kali Test Na A-a O2 Difference 211.0 mm/Hg Respiratory Index 0.5 Hgb O2 Saturation 97.2 (95.0-98.0) % Mechanical Rate 14 FiO2 100.0 % Tidal Volume 500 PEEP 5 Sodium 137 (132-148) mmol/L Potassium 3.8 (3.6-5.2) mmol/L Chloride 100 (98-107) mmol/L Carbon Dioxide 21 L (22-30) mmol/L Anion Gap 20 (10-20) BUN 95 H (9-20) mg/dL Creatinine 7.3 H (0.8-1.5) mg/dL Est GFR ( Amer) 9 Est GFR (Non-Af Amer) 7 POC Glucose (mg/dL) 101 (65-110) mg/dL Random Glucose 97 (75-110) mg/dL Calcium 6.7 L (8.6-10.4) mg/dl Phosphorus 5.0 H (2.5-4.5) mg/dL Magnesium 1.7 (1.6-2.3) mg/dL Total Bilirubin 0.4 (0.2-1.3) mg/dL AST 18 (17-59) U/L ALT 23 (21-72) U/L Alkaline Phosphatase 85 (38-126) U/L Total Creatine Kinase (55-170) U/L CK-MB (Mass) (0.0-3.38) ng/mL Troponin I (0.00-0.120) ng/mL Total Protein 6.6 (6.3-8.3) g/dL Albumin 3.1 L (3.5-5.0) g/dL Globulin 3.5 (2.2-3.9) gm/dL Albumin/Globulin Ratio 0.9 L (1.0-2.1) 04/17/18 04/16/18 04/16/18 Range/Units 06:12 21:08 17:21 WBC 7.9 D (4.8-10.8) K/uL RBC 2.57 L (4.40-5.90) Mil/uL Hgb 7.5 L (12.0-18.0) g/dL Hct 22.5 L (35.0-51.0) % MCV 87.4 (80.0-94.0) fL MCH 29.1 (27.0-31.0) pg MCHC 33.3 (33.0-37.0) g/dL RDW 13.5 (11.5-14.5) % Plt Count 183 (130-400) K/uL MPV 10.4 (7.2-11.7) fL Neut % (Auto) 63.4 (50.0-75.0) % Lymph % (Auto) 10.6 L (20.0-40.0) % Lyon % (Auto) 10.9 H (0.0-10.0) % Eos % (Auto) 14.8 H (0.0-4.0) % Baso % (Auto) 0.3 (0.0-2.0) % Neut # (Auto) 5.0 (1.8-7.0) K/uL Lymph # (Auto) 0.8 L (1.0-4.3) K/uL Lyon # (Auto) 0.9 H (0.0-0.8) K/uL Eos # (Auto) 1.2 H (0.0-0.7) K/uL Baso # (Auto) 0.0 (0.0-0.2) K/uL Neutrophils % (Manual) (50-75) % Lymphocytes % (Manual) (20-40) % Monocytes % (Manual) (0-10) % Eosinophils % (Manual) (0-4) % Platelet Estimate (NORMAL) Polychromasia Hypochromasia (manual) Microcytosis (manual) Puncture Site pCO2 (35-45) mm/Hg pO2 (80-100) mm/Hg HCO3 (21-28) mmol/L ABG pH (7.35-7.45) ABG Total CO2 (22-28) mmol/L ABG O2 Saturation (95-98) % ABG Base Excess (-2.0-3.0) mmol/L ABG Hemoglobin (11.7-17.4) g/dL ABG Carboxyhemoglobin (0.5-1.5) % POC ABG HHb (Measured) (0.0-5.0) % ABG Methemoglobin (0.0-3.0) % Kali Test A-a O2 Difference mm/Hg Respiratory Index Hgb O2 Saturation (95.0-98.0) % Mechanical Rate FiO2 % Tidal Volume PEEP Sodium 136 (132-148) mmol/L Potassium 3.8 (3.6-5.2) mmol/L Chloride 98 (98-107) mmol/L Carbon Dioxide 24 (22-30) mmol/L Anion Gap 18 (10-20) BUN 92 H (9-20) mg/dL Creatinine 6.8 H (0.8-1.5) mg/dL Est GFR ( Amer) 10 Est GFR (Non-Af Amer) 8 POC Glucose (mg/dL) 211 H (65-110) mg/dL Random Glucose 128 H (75-110) mg/dL Calcium 6.7 L (8.6-10.4) mg/dl Phosphorus 4.4 (2.5-4.5) mg/dL Magnesium 1.8 (1.6-2.3) mg/dL Total Bilirubin 0.5 (0.2-1.3) mg/dL AST 17 D (17-59) U/L ALT 18 L D (21-72) U/L Alkaline Phosphatase 79 (38-126) U/L Total Creatine Kinase 67 (55-170) U/L CK-MB (Mass) 0.74 (0.0-3.38) ng/mL Troponin I 1.4000 H* (0.00-0.120) ng/mL Total Protein 6.5 (6.3-8.3) g/dL Albumin 3.0 L (3.5-5.0) g/dL Globulin 3.5 (2.2-3.9) gm/dL Albumin/Globulin Ratio 0.9 L (1.0-2.1) 12/05/17 12/05/17 Range/Units 17:21 16:04 WBC 5.0 (4.8-10.8) K/uL RBC 2.59 L (4.40-5.90) Mil/uL Hgb 7.4 L (12.0-18.0) g/dL Hct 22.7 L (35.0-51.0) % MCV 87.6 (80.0-94.0) fL MCH 28.7 (27.0-31.0) pg MCHC 32.7 L (33.0-37.0) g/dL RDW 13.6 (11.5-14.5) % Plt Count 171 (130-400) K/uL MPV 9.8 (7.2-11.7) fL Neut % (Auto) 69.1 (50.0-75.0) % Lymph % (Auto) 11.7 L (20.0-40.0) % Lyon % (Auto) 5.5 (0.0-10.0) % Eos % (Auto) 13.2 H (0.0-4.0) % Baso % (Auto) 0.5 (0.0-2.0) % Neut # (Auto) 3.4 (1.8-7.0) K/uL Lymph # (Auto) 0.6 L (1.0-4.3) K/uL Lyon # (Auto) 0.3 (0.0-0.8) K/uL Eos # (Auto) 0.7 (0.0-0.7) K/uL Baso # (Auto) 0.0 (0.0-0.2) K/uL Neutrophils % (Manual) (50-75) % Lymphocytes % (Manual) (20-40) % Monocytes % (Manual) (0-10) % Eosinophils % (Manual) (0-4) % Platelet Estimate (NORMAL) Polychromasia Hypochromasia (manual) Microcytosis (manual) Puncture Site pCO2 (35-45) mm/Hg pO2 (80-100) mm/Hg HCO3 (21-28) mmol/L ABG pH (7.35-7.45) ABG Total CO2 (22-28) mmol/L ABG O2 Saturation (95-98) % ABG Base Excess (-2.0-3.0) mmol/L ABG Hemoglobin (11.7-17.4) g/dL ABG Carboxyhemoglobin (0.5-1.5) % POC ABG HHb (Measured) (0.0-5.0) % ABG Methemoglobin (0.0-3.0) % Kali Test A-a O2 Difference mm/Hg Respiratory Index Hgb O2 Saturation (95.0-98.0) % Mechanical Rate FiO2 % Tidal Volume PEEP Sodium (132-148) mmol/L Potassium (3.6-5.2) mmol/L Chloride (98-107) mmol/L Carbon Dioxide (22-30) mmol/L Anion Gap (10-20) BUN (9-20) mg/dL Creatinine (0.8-1.5) mg/dL Est GFR ( Amer) Est GFR (Non-Af Amer) POC Glucose (mg/dL) 114 H (65-110) mg/dL Random Glucose (75-110) mg/dL Calcium (8.6-10.4) mg/dl Phosphorus (2.5-4.5) mg/dL Magnesium (1.6-2.3) mg/dL Total Bilirubin (0.2-1.3) mg/dL AST (17-59) U/L ALT (21-72) U/L Alkaline Phosphatase (38-126) U/L Total Creatine Kinase (55-170) U/L CK-MB (Mass) (0.0-3.38) ng/mL Troponin I (0.00-0.120) ng/mL Total Protein (6.3-8.3) g/dL Albumin (3.5-5.0) g/dL Globulin (2.2-3.9) gm/dL Albumin/Globulin Ratio (1.0-2.1) Laboratory Results - last 24 hr 12/05/17 12/05/17 12/05/17 16:04 17:21 17:21 WBC 5.0 RBC 2.59 L Hgb 7.4 L Hct 22.7 L MCV 87.6 MCH 28.7 MCHC 32.7 L RDW 13.6 Plt Count 171 MPV 9.8 Neut % (Auto) 69.1 Lymph % (Auto) 11.7 L Lyon % (Auto) 5.5 Eos % (Auto) 13.2 H Baso % (Auto) 0.5 Neut # (Auto) 3.4 Lymph # (Auto) 0.6 L Lyon # (Auto) 0.3 Eos # (Auto) 0.7 Baso # (Auto) 0.0 Neutrophils % (Manual) Lymphocytes % (Manual) Monocytes % (Manual) Eosinophils % (Manual) Platelet Estimate Polychromasia Hypochromasia (manual) Microcytosis (manual) Puncture Site pCO2 pO2 HCO3 ABG pH ABG Total CO2 ABG O2 Saturation ABG Base Excess ABG Hemoglobin ABG Carboxyhemoglobin POC ABG HHb (Measured) ABG Methemoglobin Kali Test A-a O2 Difference Respiratory Index Hgb O2 Saturation Mechanical Rate FiO2 Tidal Volume PEEP Sodium 136 Potassium 3.8 Chloride 98 Carbon Dioxide 24 Anion Gap 18 BUN 92 H Creatinine 6.8 H Est GFR ( Amer) 10 Est GFR (Non-Af Amer) 8 POC Glucose (mg/dL) 114 H Random Glucose 128 H Calcium 6.7 L Phosphorus 4.4 Magnesium 1.8 Total Bilirubin 0.5 AST 17 D ALT 18 L D Alkaline Phosphatase 79 Total Creatine Kinase 67 CK-MB (Mass) 0.74 Troponin I 1.4000 H* Total Protein 6.5 Albumin 3.0 L Globulin 3.5 Albumin/Globulin Ratio 0.9 L 12/05/17 12/06/17 12/06/17 21:08 06:12 06:14 WBC 7.9 D RBC 2.57 L Hgb 7.5 L Hct 22.5 L MCV 87.4 MCH 29.1 MCHC 33.3 RDW 13.5 Plt Count 183 MPV 10.4 Neut % (Auto) 63.4 Lymph % (Auto) 10.6 L Lyon % (Auto) 10.9 H Eos % (Auto) 14.8 H Baso % (Auto) 0.3 Neut # (Auto) 5.0 Lymph # (Auto) 0.8 L Lyon # (Auto) 0.9 H Eos # (Auto) 1.2 H Baso # (Auto) 0.0 Neutrophils % (Manual) Lymphocytes % (Manual) Monocytes % (Manual) Eosinophils % (Manual) Platelet Estimate Polychromasia Hypochromasia (manual) Microcytosis (manual) Puncture Site pCO2 pO2 HCO3 ABG pH ABG Total CO2 ABG O2 Saturation ABG Base Excess ABG Hemoglobin ABG Carboxyhemoglobin POC ABG HHb (Measured) ABG Methemoglobin Kali Test A-a O2 Difference Respiratory Index Hgb O2 Saturation Mechanical Rate FiO2 Tidal Volume PEEP Sodium 137 Potassium 3.8 Chloride 100 Carbon Dioxide 21 L Anion Gap 20 BUN 95 H Creatinine 7.3 H Est GFR ( Amer) 9 Est GFR (Non-Af Amer) 7 POC Glucose (mg/dL) 211 H Random Glucose 97 Calcium 6.7 L Phosphorus 5.0 H Magnesium 1.7 Total Bilirubin 0.4 AST 18 ALT 23 Alkaline Phosphatase 85 Total Creatine Kinase CK-MB (Mass) Troponin I Total Protein 6.6 Albumin 3.1 L Globulin 3.5 Albumin/Globulin Ratio 0.9 L 12/06/17 12/06/17 12/06/17 07:08 10:25 11:34 WBC RBC Hgb Hct MCV MCH MCHC RDW Plt Count MPV Neut % (Auto) Lymph % (Auto) Lyon % (Auto) Eos % (Auto) Baso % (Auto) Neut # (Auto) Lymph # (Auto) Lyon # (Auto) Eos # (Auto) Baso # (Auto) Neutrophils % (Manual) Lymphocytes % (Manual) Monocytes % (Manual) Eosinophils % (Manual) Platelet Estimate Polychromasia Hypochromasia (manual) Microcytosis (manual) Puncture Site [employer]room pCO2 28 L pO2 467 H HCO3 17.1 L ABG pH 7.33 L ABG Total CO2 15.7 L ABG O2 Saturation 98.3 H ABG Base Excess -10.1 L ABG Hemoglobin 7.6 L ABG Carboxyhemoglobin 0.3 L POC ABG HHb (Measured) 1.7 ABG Methemoglobin 0.9 Kali Test Na A-a O2 Difference 211.0 Respiratory Index 0.5 Hgb O2 Saturation 97.2 Mechanical Rate 14 FiO2 100.0 Tidal Volume 500 PEEP 5 Sodium Potassium Chloride Carbon Dioxide Anion Gap BUN Creatinine Est GFR ( Amer) Est GFR (Non-Af Amer) POC Glucose (mg/dL) 101 146 H Random Glucose Calcium Phosphorus Magnesium Total Bilirubin AST ALT Alkaline Phosphatase Total Creatine Kinase CK-MB (Mass) Troponin I Total Protein Albumin Globulin Albumin/Globulin Ratio 12/06/17 12/06/17 11:35 11:35 WBC 12.7 H D RBC 2.95 L Hgb 8.4 L Hct 26.2 L MCV 88.6 MCH 28.6 MCHC 32.2 L RDW 13.5 Plt Count 234 MPV 9.5 Neut % (Auto) 79.2 H Lymph % (Auto) 4.1 L Lyon % (Auto) 7.5 Eos % (Auto) 8.9 H Baso % (Auto) 0.3 Neut # (Auto) 10.1 H Lymph # (Auto) 0.5 L Lyon # (Auto) 1.0 H Eos # (Auto) 1.1 H Baso # (Auto) 0.0 Neutrophils % (Manual) 86 H Lymphocytes % (Manual) 6 L Monocytes % (Manual) 3 Eosinophils % (Manual) 5 H Platelet Estimate Normal Polychromasia Slight Hypochromasia (manual) Slight Microcytosis (manual) Slight Puncture Site pCO2 pO2 HCO3 ABG pH ABG Total CO2 ABG O2 Saturation ABG Base Excess ABG Hemoglobin ABG Carboxyhemoglobin POC ABG HHb (Measured) ABG Methemoglobin Kali Test A-a O2 Difference Respiratory Index Hgb O2 Saturation Mechanical Rate FiO2 Tidal Volume PEEP Sodium 137 Potassium 4.2 Chloride 98 Carbon Dioxide 20 L Anion Gap 24 H BUN 90 H Creatinine 7.9 H* Est GFR ( Amer) 8 Est GFR (Non-Af Amer) 7 POC Glucose (mg/dL) Random Glucose 150 H Calcium 7.1 L Phosphorus Magnesium Total Bilirubin 0.5 AST 21 ALT 21 Alkaline Phosphatase 113 Total Creatine Kinase CK-MB (Mass) Troponin I Total Protein 7.2 Albumin 3.4 L Globulin 3.8 Albumin/Globulin Ratio 0.9 L Critical Care Progress Note - Nutrition Nutrition: Nutrition Category Date Time Status NPO Diet [DIET] Diets 12/06/17 Breakfast Active Attending/Attestation - Attestation I have personally seen and examined this patient.: Yes I have fully participated in the care of the patient.: Yes I have reviewed all pertinent clinical information: Yes Notes (Text): 12/06/17 15:57 patient seen and examined. Patient had a cardiac arrest during cardiac cath status post resuscitation and intubation As far cardiology multivessel disease and patient will be transferred to [facility] for possible surgical intervention Continue present treatment for now Case discussed with family at length patient awake and responsive, started on Diprivan drip
--- NOTE | 2017-12-06 13:37 | CP.PCM.PN ---
Subjective - Date & Time of Evaluation Date of Evaluation: 12/06/17 Time of Evaluation: 13:37 - Subjective Subjective: events noted coded in cath labs this am. [place] [facility] [place], vent Objective - Vital Signs/Intake and Output Vital Signs (last 24 hours): Temp Pulse Resp BP Pulse Ox 98.4 F 84 12 143/71 100 12/06/17 08:00 12/06/17 11:00 12/06/17 11:00 12/06/17 11:00 12/06/17 11:00 Intake and Output: 12/06/17 12/06/17 06:59 18:59 Intake Total 309.2 63 Output Total 1200 0 Balance -890.8 63 - Medications Medications: Current Medications Aspirin (Ecotrin) 81 mg PO DAILY [facility] Last Admin: 12/06/17 12:37 Dose: Not Given Epoetin Riccardo (Procrit) 10,000 unit IV MWF [facility] Famotidine (Pepcid) 20 mg PO DAILY [facility] Last Admin: 12/06/17 12:40 Dose: Not Given Ferric Sodium Gluconate Complex (Ferrlecit) 125 mg IVPB DAILY [facility] Stop: 12/13/17 12:16 Last Admin: 12/05/17 14:34 Dose: 125 mg Furosemide (Lasix) 40 mg PO DAILY [facility] Last Admin: 12/06/17 12:39 Dose: Not Given Heparin Sodium/Sodium Chloride (Heparin 67621 Units/250ml 1/2 Normal Saline) 25 ,000 units in 250 mls @ 8.52 mls/hr IV .Q24H PRN; Protocol; 12 UNITS/KG/HR PRN Reason: ADJUST RATE PER PROTOCOL Last Admin: 12/06/17 11:00 Dose: 12 units/kg/hr, 8.52 mls/hr Norepinephrine Bitartrate 4 mg (/ Sodium Chloride) 254 mls @ 15.24 mls/hr IV .[id number] PRN; Protocol; 4 MCG/MIN PRN Reason: TITRATE PER MD ORDER Last Titration: 12/06/17 12:15 Dose: 2 mcg/min, 7.62 mls/hr Propofol (Diprivan) 1,000 mg in 100 mls @ 2.13 mls/hr IV .Q24H PRN; Protocol; 5 MCG/KG/MIN PRN Reason: TITRATE PER MD ORDER Last Titration: 12/06/17 12:30 Dose: 10 mcg/kg/min, 4.26 mls/hr Rosuvastatin Calcium (Crestor) 5 mg PO HS [facility] Last Admin: 12/05/17 21:57 Dose: 5 mg - Labs Labs: 12/06/17 11:35 12/06/17 11:35 PT 12.8 SECONDS (9.7-12.2) H 12/05/17 05:56 INR 1.1 12/05/17 05:56 APTT 77 SECONDS (21-34) H D 12/05/17 05:56 - Constitutional Appears: No Acute Distress, Chronically Ill (vent, sedated) - Head Exam Head Exam: NORMAL INSPECTION - Eye Exam Eye Exam: Normal appearance, PERRL - ENT Exam Additional comments: et tube - Neck Exam Neck Exam: Normal Inspection - Respiratory Exam Respiratory Exam: NORMAL BREATHING PATTERN (mechanical vent sounds) - Cardiovascular Exam Cardiovascular Exam: Tachycardia, REGULAR RHYTHM - GI/Abdominal Exam GI & Abdominal Exam: Distended, Soft - Extremities Exam Extremities Exam: Normal Inspection - Neurological Exam Neurological Exam: absent: Alert, Awake - Skin Skin Exam: Normal Color, Warm Assessment and Plan (1) ESRD (end stage renal disease) Status: Acute (2) CAD (coronary artery disease) Status: Acute (3) HTN (hypertension) Status: Acute (4) Syncope Status: Acute - Assessment and Plan (Free Text) Assessment: hold off hd today, hemodynamic instability [place] [facility] [place] cardiac management pressor and vent support
[2017-12-06] MEDS: Ferric Sodium Gluconat Complex 62.5 mg/5 ml Vial IVPB SCH (13:57)
--- NOTE | 2017-12-06 18:08 | PCM.PROC ---
Procedures Attestation:: I certify that I have explained the specified Operation(s) or Procedure(s), risks, benefits and reasonable alternatives to the Patient and/or other person responsible. The opportunity was given to ask questions and all questions answered - Central Line Placement Right Internal Jugular Triple Lumen Catheter Aseptic technique was employed throughout the procedure: Hand Hygiene done prior to procedure, Full sterile barriers (mask, hair cover, sterile gown, sterile gloves), Full body sterile drape, Chloraprep Antiseptic: 30 second prep for IJ or SC sites Central Line Prep: Chlorhexidine-Alcohol Combination Local Anesthesia Used: Lidocaine 2% Ultrasound Used for Placement: Yes Central Line Lumen Inserted: triple Post Procedure: Sutured in Place, Good Blood Return, All Ports Aspirated, Flushed, Capped, Sterile Dressing Applied Secured by: Suture Post procedure dressing: Chlorhexidine disc (Biopatch) Post Procedure X-Ray: Yes Patient Tolerated Procedure: Well Immediate Complications: None
--- NOTE | 2017-12-06 18:28 | CP.CCUPN ---
CCU Subjective - Physician Review Events Since Last Encounter (Free Text): 12/06/17 18:18 Still intubated and sedated. Critical Care Time Spent (in minutes): 45 CCU Objective - Vital Signs / Intake & Output Vital Signs (Last 4 hours): Vital Signs Temp Pulse Resp BP Pulse Ox 12/06/17 18:00 63 11 L 100 12/06/17 17:59 63 12 101/59 L 100 12/06/17 17:00 63 12 100 12/06/17 16:59 63 12 96/53 L 100 12/06/17 16:00 97.8 F 63 12 80/47 L 100 12/06/17 15:59 63 12 80/47 L 100 12/06/17 15:00 97.6 F 62 12 94/47 L 100 12/06/17 14:59 63 12 83/45 L 100 Intake and Output (Last 8hrs): Intake & Output 12/06/17 12/06/17 12/06/17 06:59 14:59 22:59 Intake Total 0 311.0 35.8 Output Total 600 0 0 Balance -600 311.0 35.8 Weight 156 lb 8.451 oz Intake: IV 75 Intake, IV Amount 236.0 35.8 LT AC side port 45 Left Antecubital 108 Left Forearm 21.5 12.8 Left Hand 24 8 Rt Femoral HD catheter 37.5 15 Oral 0 0 Output: Urine 600 0 0 Urine, Voided 600 0 0 - Physical Exam Head: Positive for: Atraumatic, Normocephalic Pupils: Positive for: PERRL Extroacular Muscles: Positive for: EOMI Mouth: Positive for: Moist Mucous Membranes Respiratory/Chest: Positive for: Clear to Auscultation. Negative for: Wheezes, Rales, Rhonchi Cardiovascular: Positive for: Regular Rate and Rhythm, Normal S1, S2 Abdomen: Positive for: Normal Bowel Sounds. Negative for: Tenderness, Distention Upper Extremity: Positive for: Normal Inspection Lower Extremity: Positive for: Other (dialysis catheter right groin. sheath in the left groin.) Neurological: Positive for: GCS=15 Skin: Positive for: Warm, Dry Psychiatric: Positive for: Other - Medications Active Medications: Active Medications Generic Name Dose Route Start Last Admin Trade Name Freq PRN Reason Stop Dose Admin Aspirin 81 mg 12/06/17 10:00 12/06/17 12:37 Ecotrin PO Not Given DAILY [facility] Epoetin Riccardo 10,000 unit 12/07/17 09:00 Procrit IV MWF [facility] Famotidine 20 mg 12/02/17 10:00 12/06/17 12:40 Pepcid PO Not Given DAILY [facility] Ferric Sodium Gluconate Complex 125 mg 12/05/17 12:15 12/06/17 13:57 Ferrlecit IVPB 12/13/17 12:16 125 mg DAILY SO Administration Heparin Sodium/Sodium Chloride 25,000 units in 250 mls @ 8.52 mls/hr 12/06/17 10:48 12/06/17 11:00 Heparin 07914 Units/250ml 1/2 Normal Saline IV 12 units/kg/hr .Q24H PRN 8.52 mls/hr ADJUST RATE PER PROTOCOL Administration Protocol 12 UNITS/KG/HR Norepinephrine Bitartrate 4 mg 254 mls @ 15.24 mls/hr 12/06/17 10:52 13:30 / Sodium Chloride IV 4 mcg/min .[id number] PRN 15.24 mls/hr TITRATE PER MD ORDER Titration Protocol 4 MCG/MIN Propofol 1,000 mg in 100 mls @ 2.13 mls/hr 12/06/17 11:39 12/06/17 13:30 Diprivan IV 30 mcg/kg/min .Q24H PRN 12.78 mls/hr TITRATE PER MD ORDER Titration Protocol 5 MCG/KG/MIN Rosuvastatin Calcium 5 mg 12/02/17 22:00 12/05/17 21:57 Crestor PO 5 mg HS SO Administration - Patient Studies Lab Studies: Lab Studies 12/06/17 12/06/17 12/06/17 Range/Units 17:10 16:14 11:35 WBC (4.8-10.8) K/uL RBC (4.40-5.90) Mil/uL Hgb (12.0-18.0) g/dL Hct (35.0-51.0) % MCV (80.0-94.0) fL MCH (27.0-31.0) pg MCHC (33.0-37.0) g/dL RDW (11.5-14.5) % Plt Count (130-400) K/uL MPV (7.2-11.7) fL Neut % (Auto) (50.0-75.0) % Lymph % (Auto) (20.0-40.0) % [place] % (Auto) (0.0-10.0) % Eos % (Auto) (0.0-4.0) % Baso % (Auto) (0.0-2.0) % Neut # (Auto) (1.8-7.0) K/uL Lymph # (Auto) (1.0-4.3) K/uL [place] # (Auto) (0.0-0.8) K/uL Eos # (Auto) (0.0-0.7) K/uL Baso # (Auto) (0.0-0.2) K/uL Neutrophils % (Manual) (50-75) % Lymphocytes % (Manual) (20-40) % Monocytes % (Manual) (0-10) % Eosinophils % (Manual) (0-4) % Platelet Estimate (NORMAL) Polychromasia Hypochromasia (manual) Microcytosis (manual) APTT 74 H (21-34) SECONDS Puncture Site pCO2 (35-45) mm/Hg pO2 (80-100) mm/Hg HCO3 (21-28) mmol/L ABG pH (7.35-7.45) ABG Total CO2 (22-28) mmol/L ABG O2 Saturation (95-98) % ABG Base Excess (-2.0-3.0) mmol/L ABG Hemoglobin (11.7-17.4) g/dL ABG Carboxyhemoglobin (0.5-1.5) % POC ABG HHb (Measured) (0.0-5.0) % ABG Methemoglobin (0.0-3.0) % Kali Test A-a O2 Difference mm/Hg Respiratory Index Hgb O2 Saturation (95.0-98.0) % Mechanical Rate FiO2 % Tidal Volume PEEP Sodium 137 (132-148) mmol/L Potassium 4.2 (3.6-5.2) mmol/L Chloride 98 (98-107) mmol/L Carbon Dioxide 20 L (22-30) mmol/L Anion Gap 24 H (10-20) BUN 90 H (9-20) mg/dL Creatinine 7.9 H* (0.8-1.5) mg/dL Est GFR ( Amer) 8 Est GFR (Non-Af Amer) 7 POC Glucose (mg/dL) 123 H (65-110) mg/dL Random Glucose 150 H (75-110) mg/dL Calcium 7.1 L (8.6-10.4) mg/dl Phosphorus (2.5-4.5) mg/dL Magnesium (1.6-2.3) mg/dL Total Bilirubin 0.5 (0.2-1.3) mg/dL AST 21 (17-59) U/L ALT 21 (21-72) U/L Alkaline Phosphatase 113 (38-126) U/L Total Protein 7.2 (6.3-8.3) g/dL Albumin 3.4 L (3.5-5.0) g/dL Globulin 3.8 (2.2-3.9) gm/dL Albumin/Globulin Ratio 0.9 L (1.0-2.1) 12/06/17 12/06/17 12/06/17 Range/Units 11:35 11:34 10:25 WBC 12.7 H D (4.8-10.8) K/uL RBC 2.95 L (4.40-5.90) Mil/uL Hgb 8.4 L (12.0-18.0) g/dL Hct 26.2 L (35.0-51.0) % MCV 88.6 (80.0-94.0) fL MCH 28.6 (27.0-31.0) pg MCHC 32.2 L (33.0-37.0) g/dL RDW 13.5 (11.5-14.5) % Plt Count 234 (130-400) K/uL MPV 9.5 (7.2-11.7) fL Neut % (Auto) 79.2 H (50.0-75.0) % Lymph % (Auto) 4.1 L (20.0-40.0) % [place] % (Auto) 7.5 (0.0-10.0) % Eos % (Auto) 8.9 H (0.0-4.0) % Baso % (Auto) 0.3 (0.0-2.0) % Neut # (Auto) 10.1 H (1.8-7.0) K/uL Lymph # (Auto) 0.5 L (1.0-4.3) K/uL [place] # (Auto) 1.0 H (0.0-0.8) K/uL Eos # (Auto) 1.1 H (0.0-0.7) K/uL Baso # (Auto) 0.0 (0.0-0.2) K/uL Neutrophils % (Manual) 86 H (50-75) % Lymphocytes % (Manual) 6 L (20-40) % Monocytes % (Manual) 3 (0-10) % Eosinophils % (Manual) 5 H (0-4) % Platelet Estimate Normal (NORMAL) Polychromasia Slight Hypochromasia (manual) Slight Microcytosis (manual) Slight APTT (21-34) SECONDS Puncture Site minilab operator pCO2 28 L (35-45) mm/Hg pO2 467 H (80-100) mm/Hg HCO3 17.1 L (21-28) mmol/L ABG pH 7.33 L (7.35-7.45) ABG Total CO2 15.7 L (22-28) mmol/L ABG O2 Saturation 98.3 H (95-98) % ABG Base Excess -10.1 L (-2.0-3.0) mmol/L ABG Hemoglobin 7.6 L (11.7-17.4) g/dL ABG Carboxyhemoglobin 0.3 L (0.5-1.5) % POC ABG HHb (Measured) 1.7 (0.0-5.0) % ABG Methemoglobin 0.9 (0.0-3.0) % Kali Test Na A-a O2 Difference 211.0 mm/Hg Respiratory Index 0.5 Hgb O2 Saturation 97.2 (95.0-98.0) % Mechanical Rate 14 FiO2 100.0 % Tidal Volume 500 PEEP 5 Sodium (132-148) mmol/L Potassium (3.6-5.2) mmol/L Chloride (98-107) mmol/L Carbon Dioxide (22-30) mmol/L Anion Gap (10-20) BUN (9-20) mg/dL Creatinine (0.8-1.5) mg/dL Est GFR ( Amer) Est GFR (Non-Af Amer) POC Glucose (mg/dL) 146 H (65-110) mg/dL Random Glucose (75-110) mg/dL Calcium (8.6-10.4) mg/dl Phosphorus (2.5-4.5) mg/dL Magnesium (1.6-2.3) mg/dL Total Bilirubin (0.2-1.3) mg/dL AST (17-59) U/L ALT (21-72) U/L Alkaline Phosphatase (38-126) U/L Total Protein (6.3-8.3) g/dL Albumin (3.5-5.0) g/dL Globulin (2.2-3.9) gm/dL Albumin/Globulin Ratio (1.0-2.1) 12/06/17 12/06/17 12/06/17 Range/Units 07:08 06:14 06:12 WBC 7.9 D (4.8-10.8) K/uL RBC 2.57 L (4.40-5.90) Mil/uL Hgb 7.5 L (12.0-18.0) g/dL Hct 22.5 L (35.0-51.0) % MCV 87.4 (80.0-94.0) fL MCH 29.1 (27.0-31.0) pg MCHC 33.3 (33.0-37.0) g/dL RDW 13.5 (11.5-14.5) % Plt Count 183 (130-400) K/uL MPV 10.4 (7.2-11.7) fL Neut % (Auto) 63.4 (50.0-75.0) % Lymph % (Auto) 10.6 L (20.0-40.0) % [place] % (Auto) 10.9 H (0.0-10.0) % Eos % (Auto) 14.8 H (0.0-4.0) % Baso % (Auto) 0.3 (0.0-2.0) % Neut # (Auto) 5.0 (1.8-7.0) K/uL Lymph # (Auto) 0.8 L (1.0-4.3) K/uL [place] # (Auto) 0.9 H (0.0-0.8) K/uL Eos # (Auto) 1.2 H (0.0-0.7) K/uL Baso # (Auto) 0.0 (0.0-0.2) K/uL Neutrophils % (Manual) (50-75) % Lymphocytes % (Manual) (20-40) % Monocytes % (Manual) (0-10) % Eosinophils % (Manual) (0-4) % Platelet Estimate (NORMAL) Polychromasia Hypochromasia (manual) Microcytosis (manual) APTT (21-34) SECONDS Puncture Site pCO2 (35-45) mm/Hg pO2 (80-100) mm/Hg HCO3 (21-28) mmol/L ABG pH (7.35-7.45) ABG Total CO2 (22-28) mmol/L ABG O2 Saturation (95-98) % ABG Base Excess (-2.0-3.0) mmol/L ABG Hemoglobin (11.7-17.4) g/dL ABG Carboxyhemoglobin (0.5-1.5) % POC ABG HHb (Measured) (0.0-5.0) % ABG Methemoglobin (0.0-3.0) % Kali Test A-a O2 Difference mm/Hg Respiratory Index Hgb O2 Saturation (95.0-98.0) % Mechanical Rate FiO2 % Tidal Volume PEEP Sodium 137 (132-148) mmol/L Potassium 3.8 (3.6-5.2) mmol/L Chloride 100 (98-107) mmol/L Carbon Dioxide 21 L (22-30) mmol/L Anion Gap 20 (10-20) BUN 95 H (9-20) mg/dL Creatinine 7.3 H (0.8-1.5) mg/dL Est GFR ( Amer) 9 Est GFR (Non-Af Amer) 7 POC Glucose (mg/dL) 101 (65-110) mg/dL Random Glucose 97 (75-110) mg/dL Calcium 6.7 L (8.6-10.4) mg/dl Phosphorus 5.0 H (2.5-4.5) mg/dL Magnesium 1.7 (1.6-2.3) mg/dL Total Bilirubin 0.4 (0.2-1.3) mg/dL AST 18 (17-59) U/L ALT 23 (21-72) U/L Alkaline Phosphatase 85 (38-126) U/L Total Protein 6.6 (6.3-8.3) g/dL Albumin 3.1 L (3.5-5.0) g/dL Globulin 3.5 (2.2-3.9) gm/dL Albumin/Globulin Ratio 0.9 L (1.0-2.1) 04/16/18 Range/Units 21:08 WBC (4.8-10.8) K/uL RBC (4.40-5.90) Mil/uL Hgb (12.0-18.0) g/dL Hct (35.0-51.0) % MCV (80.0-94.0) fL MCH (27.0-31.0) pg MCHC (33.0-37.0) g/dL RDW (11.5-14.5) % Plt Count (130-400) K/uL MPV (7.2-11.7) fL Neut % (Auto) (50.0-75.0) % Lymph % (Auto) (20.0-40.0) % [place] % (Auto) (0.0-10.0) % Eos % (Auto) (0.0-4.0) % Baso % (Auto) (0.0-2.0) % Neut # (Auto) (1.8-7.0) K/uL Lymph # (Auto) (1.0-4.3) K/uL [place] # (Auto) (0.0-0.8) K/uL Eos # (Auto) (0.0-0.7) K/uL Baso # (Auto) (0.0-0.2) K/uL Neutrophils % (Manual) (50-75) % Lymphocytes % (Manual) (20-40) % Monocytes % (Manual) (0-10) % Eosinophils % (Manual) (0-4) % Platelet Estimate (NORMAL) Polychromasia Hypochromasia (manual) Microcytosis (manual) APTT (21-34) SECONDS Puncture Site pCO2 (35-45) mm/Hg pO2 (80-100) mm/Hg HCO3 (21-28) mmol/L ABG pH (7.35-7.45) ABG Total CO2 (22-28) mmol/L ABG O2 Saturation (95-98) % ABG Base Excess (-2.0-3.0) mmol/L ABG Hemoglobin (11.7-17.4) g/dL ABG Carboxyhemoglobin (0.5-1.5) % POC ABG HHb (Measured) (0.0-5.0) % ABG Methemoglobin (0.0-3.0) % Kali Test A-a O2 Difference mm/Hg Respiratory Index Hgb O2 Saturation (95.0-98.0) % Mechanical Rate FiO2 % Tidal Volume PEEP Sodium (132-148) mmol/L Potassium (3.6-5.2) mmol/L Chloride (98-107) mmol/L Carbon Dioxide (22-30) mmol/L Anion Gap (10-20) BUN (9-20) mg/dL Creatinine (0.8-1.5) mg/dL Est GFR ( Amer) Est GFR (Non-Af Amer) POC Glucose (mg/dL) 211 H (65-110) mg/dL Random Glucose (75-110) mg/dL Calcium (8.6-10.4) mg/dl Phosphorus (2.5-4.5) mg/dL Magnesium (1.6-2.3) mg/dL Total Bilirubin (0.2-1.3) mg/dL AST (17-59) U/L ALT (21-72) U/L Alkaline Phosphatase (38-126) U/L Total Protein (6.3-8.3) g/dL Albumin (3.5-5.0) g/dL Globulin (2.2-3.9) gm/dL Albumin/Globulin Ratio (1.0-2.1) Laboratory Results - last 24 hr 12/05/17 12/06/17 12/06/17 21:08 06:12 06:14 WBC 7.9 D RBC 2.57 L Hgb 7.5 L Hct 22.5 L MCV 87.4 MCH 29.1 MCHC 33.3 RDW 13.5 Plt Count 183 MPV 10.4 Neut % (Auto) 63.4 Lymph % (Auto) 10.6 L [place] % (Auto) 10.9 H Eos % (Auto) 14.8 H Baso % (Auto) 0.3 Neut # (Auto) 5.0 Lymph # (Auto) 0.8 L [place] # (Auto) 0.9 H Eos # (Auto) 1.2 H Baso # (Auto) 0.0 Neutrophils % (Manual) Lymphocytes % (Manual) Monocytes % (Manual) Eosinophils % (Manual) Platelet Estimate Polychromasia Hypochromasia (manual) Microcytosis (manual) APTT Puncture Site pCO2 pO2 HCO3 ABG pH ABG Total CO2 ABG O2 Saturation ABG Base Excess ABG Hemoglobin ABG Carboxyhemoglobin POC ABG HHb (Measured) ABG Methemoglobin Kali Test A-a O2 Difference Respiratory Index Hgb O2 Saturation Mechanical Rate FiO2 Tidal Volume PEEP Sodium 137 Potassium 3.8 Chloride 100 Carbon Dioxide 21 L Anion Gap 20 BUN 95 H Creatinine 7.3 H Est GFR ( Amer) 9 Est GFR (Non-Af Amer) 7 POC Glucose (mg/dL) 211 H Random Glucose 97 Calcium 6.7 L Phosphorus 5.0 H Magnesium 1.7 Total Bilirubin 0.4 AST 18 ALT 23 Alkaline Phosphatase 85 Total Protein 6.6 Albumin 3.1 L Globulin 3.5 Albumin/Globulin Ratio 0.9 L 12/06/17 12/06/17 12/06/17 07:08 10:25 11:34 WBC RBC Hgb Hct MCV MCH MCHC RDW Plt Count MPV Neut % (Auto) Lymph % (Auto) [place] % (Auto) Eos % (Auto) Baso % (Auto) Neut # (Auto) Lymph # (Auto) [place] # (Auto) Eos # (Auto) Baso # (Auto) Neutrophils % (Manual) Lymphocytes % (Manual) Monocytes % (Manual) Eosinophils % (Manual) Platelet Estimate Polychromasia Hypochromasia (manual) Microcytosis (manual) APTT Puncture Site minilab operator pCO2 28 L pO2 467 H HCO3 17.1 L ABG pH 7.33 L ABG Total CO2 15.7 L ABG O2 Saturation 98.3 H ABG Base Excess -10.1 L ABG Hemoglobin 7.6 L ABG Carboxyhemoglobin 0.3 L POC ABG HHb (Measured) 1.7 ABG Methemoglobin 0.9 Kali Test Na A-a O2 Difference 211.0 Respiratory Index 0.5 Hgb O2 Saturation 97.2 Mechanical Rate 14 FiO2 100.0 Tidal Volume 500 PEEP 5 Sodium Potassium Chloride Carbon Dioxide Anion Gap BUN Creatinine Est GFR ( Amer) Est GFR (Non-Af Amer) POC Glucose (mg/dL) 101 146 H Random Glucose Calcium Phosphorus Magnesium Total Bilirubin AST ALT Alkaline Phosphatase Total Protein Albumin Globulin Albumin/Globulin Ratio 12/06/17 12/06/17 12/06/17 11:35 11:35 16:14 WBC 12.7 H D RBC 2.95 L Hgb 8.4 L Hct 26.2 L MCV 88.6 MCH 28.6 MCHC 32.2 L RDW 13.5 Plt Count 234 MPV 9.5 Neut % (Auto) 79.2 H Lymph % (Auto) 4.1 L [place] % (Auto) 7.5 Eos % (Auto) 8.9 H Baso % (Auto) 0.3 Neut # (Auto) 10.1 H Lymph # (Auto) 0.5 L [place] # (Auto) 1.0 H Eos # (Auto) 1.1 H Baso # (Auto) 0.0 Neutrophils % (Manual) 86 H Lymphocytes % (Manual) 6 L Monocytes % (Manual) 3 Eosinophils % (Manual) 5 H Platelet Estimate Normal Polychromasia Slight Hypochromasia (manual) Slight Microcytosis (manual) Slight APTT Puncture Site pCO2 pO2 HCO3 ABG pH ABG Total CO2 ABG O2 Saturation ABG Base Excess ABG Hemoglobin ABG Carboxyhemoglobin POC ABG HHb (Measured) ABG Methemoglobin Kali Test A-a O2 Difference Respiratory Index Hgb O2 Saturation Mechanical Rate FiO2 Tidal Volume PEEP Sodium 137 Potassium 4.2 Chloride 98 Carbon Dioxide 20 L Anion Gap 24 H BUN 90 H Creatinine 7.9 H* Est GFR ( Amer) 8 Est GFR (Non-Af Amer) 7 POC Glucose (mg/dL) 123 H Random Glucose 150 H Calcium 7.1 L Phosphorus Magnesium Total Bilirubin 0.5 AST 21 ALT 21 Alkaline Phosphatase 113 Total Protein 7.2 Albumin 3.4 L Globulin 3.8 Albumin/Globulin Ratio 0.9 L 12/06/17 17:10 WBC RBC Hgb Hct MCV MCH MCHC RDW Plt Count MPV Neut % (Auto) Lymph % (Auto) [place] % (Auto) Eos % (Auto) Baso % (Auto) Neut # (Auto) Lymph # (Auto) [place] # (Auto) Eos # (Auto) Baso # (Auto) Neutrophils % (Manual) Lymphocytes % (Manual) Monocytes % (Manual) Eosinophils % (Manual) Platelet Estimate Polychromasia Hypochromasia (manual) Microcytosis (manual) APTT 74 H Puncture Site pCO2 pO2 HCO3 ABG pH ABG Total CO2 ABG O2 Saturation ABG Base Excess ABG Hemoglobin ABG Carboxyhemoglobin POC ABG HHb (Measured) ABG Methemoglobin Kali Test A-a O2 Difference Respiratory Index Hgb O2 Saturation Mechanical Rate FiO2 Tidal Volume PEEP Sodium Potassium Chloride Carbon Dioxide Anion Gap BUN Creatinine Est GFR ( Amer) Est GFR (Non-Af Amer) POC Glucose (mg/dL) Random Glucose Calcium Phosphorus Magnesium Total Bilirubin AST ALT Alkaline Phosphatase Total Protein Albumin Globulin Albumin/Globulin Ratio Fingerstick Blood Sugar Results: 123 Review of Systems - Review of Systems Systems not reviewed;Unavailable: Intubated Critical Care Progress Note - Nutrition Nutrition: Nutrition Category Date Time Status NPO Diet [DIET] Diets 12/06/17 Breakfast Active Assessment/Plan (1) HLD (hyperlipidemia) Current Visit: Yes Status: Acute (2) CAD (coronary artery disease) Assessment and plan: S/P cardiogenic shock, successfully rescued. ST elevation completely resolved. Still intubated. hemodynamics are stable Discussed with CTS they have accepted patient for CABG. D/C Plavix. Therapeutic heparin. Plans to transfer for CABG. Current Visit: No Status: Acute (3) HTN (hypertension) Current Visit: No Status: Acute
[2017-12-06 20:02] VITALS: BP 142/62; PULSE 69; RESP 15
[2017-12-06 20:12] VITALS: TEMP 98
--- NOTE | 2017-12-07 04:48 | CARDCATH ---
PROCEDURE DATE: [facility] CLINICAL HISTORY: The patient is a 72-year-old male with history of hypertension, hyperlipidemia, coronary artery disease, LV dysfunction who was recently admitted for NSTEMI. The patient was also found to have renal insufficiency, and after discussing with the patient and dialyzing the patient, the patient was prepared for cardiac catheterization. PROCEDURES TECHNIQUE: The patient was brought to the cardiac catheterization lab, where he was prepared for the procedure. Left groin was used for access, and just after the access, patient had hypertension with ST elevation in the inferior leads and bradycardia. The patient was successfully resuscitated, and the patient was started on pressors and the patient was intubated before the cardiac catheterization. PROCEDURE: A 6-German JR4 guide catheter was used to visualize the right coronary artery system. A 6-German 3.5 guide catheter was used to access the left coronary artery system. Right coronary artery appeared to be patent and the stent in the right coronary artery appears to be patent. Distal left vein appeared to be have some disease, however, LAD proximally at the ostium of about 90%. Circumflex has diffuse disease in the distal portion of the vessel; however, the circumflex has about 70% lesion in the proximal circumflex. After the imaging finding, the patient has a multivessel disease with patent stent to the RCA, cardiogenic shock, most likely spasm at the site of the vessels. The patient was successfully resuscitated. The patient was given epi before the procedure. The patient was started on pressors and propofol and intubated. PLAN: The patient will be transferred to the ICU. We are going to discontinue the Plavix. We are going to start the patient on therapeutic heparin. Pending plan will be discussed with the Cardiothoracic Surgery, and the patient will be transferred to another facility for CABG. Tawana Lira MD
--- NOTE | 2017-12-07 06:46 | RAD ---
Chest x-ray single frontal view History: Central line placement. Comparison: 12/06/2017 Findings: Endotracheal tube extending into the midthoracic trachea. Right central venous catheter with tip extending to the mid right SVC. No evidence of postprocedure pneumothorax. Mild venous congestion. Top normal heart size. Multiple overlying tubes and wires. Impression: Endotracheal tube extending into the midthoracic trachea. Right central venous catheter with tip extending to the mid right SVC. No evidence of postprocedure pneumothorax. Mild venous congestion. Top normal heart size. Multiple overlying tubes and wires.
[2017-12-07] MEDS ORDERED: Epoetin Alfa 10,000 unit/ml Dialysis IV SCH (09:00)
--- NOTE | 2017-12-07 10:19 | PN ---
DATE: SUBJECTIVE: Positive for coronary artery disease. The patient needs to have . At this point, we stabilized the patient in ICU. Supportive care. Ronda Heaton MD
== END 2017-12-06 20:48 | disposition short-term general hospital (02) | DRG 280 ==
LOC: C.ER 01:57 → C.9I 03:49
PROVIDERS: ADMIT Internal Medicine Pulmonary Disease; ATTEND Internal Medicine Pulmonary Disease
PROC: 02HV33Z Insertion of Infusion Device into Superior Vena Cava, Percutaneous Approach (ICD-10-PCS; 2017-12-02)
PROC: 5A1D70Z Performance of Urinary Filtration, Intermittent, Less than 6 Hours Per Day (ICD-10-PCS; 2017-12-02)
PROC: 5A09457 Assistance with Respiratory Ventilation, 24-96 Consecutive Hours, Continuous Positive Airway Pressure (ICD-10-PCS; 2017-12-02)
PROC: 02HV33Z Insertion of Infusion Device into Superior Vena Cava, Percutaneous Approach (ICD-10-PCS; principal; 2017-12-06)
PROC: 4A023N7 Measurement of Cardiac Sampling and Pressure, Left Heart, Percutaneous Approach (ICD-10-PCS; 2017-12-06)
PROC: B2111ZZ Fluoroscopy of Multiple Coronary Arteries using Low Osmolar Contrast (ICD-10-PCS; 2017-12-06)
PROC: B2151ZZ Fluoroscopy of Left Heart using Low Osmolar Contrast (ICD-10-PCS; 2017-12-06)
PROC: 5A1935Z Respiratory Ventilation, Less than 24 Consecutive Hours (ICD-10-PCS; 2017-12-06)
PROC: 0BH17EZ Insertion of Endotracheal Airway into Trachea, Via Natural or Artificial Opening (ICD-10-PCS; 2017-12-06)
DX: I21.4 Non-ST elevation (NSTEMI) myocardial infarction (principal); N18.6 End stage renal disease; N17.9 Acute kidney failure, unspecified; I13.2 Hypertensive heart and chronic kidney disease with heart failure and with stage 5 chronic kidney disease, or end stage renal disease; I47.2 Ventricular tachycardia; I97.710 Intraoperative cardiac arrest during cardiac surgery; E87.2 Acidosis; I50.1 Left ventricular failure, unspecified; I25.111 Atherosclerotic heart disease of native coronary artery with angina pectoris with documented spasm; I27.20 Pulmonary hypertension, unspecified; J44.9 Chronic obstructive pulmonary disease, unspecified; Y84.0 Cardiac catheterization as the cause of abnormal reaction of the patient, or of later complication, without mention of misadventure at the time of the procedure; Z79.02 Long term (current) use of antithrombotics/antiplatelets; Z79.82 Long term (current) use of aspirin; D64.9 Anemia, unspecified; E11.22 Type 2 diabetes mellitus with diabetic chronic kidney disease; E78.00 Pure hypercholesterolemia, unspecified; E78.5 Hyperlipidemia, unspecified; E87.5 Hyperkalemia; R55 Syncope and collapse

== ENCOUNTER 2019-01-16 19:04 | Emergency (ER) | payer MEDICARE, OTHER ==
[2019-01-16 19:21] VITALS: BMI 24.0
--- NOTE | 2019-01-16 19:38 | C.PDOC ---
History Of Present Illness Patient is a 73 year old male, with a PMHx of anemia, CHF, COPD, and hemodialysis Tuesday, , Tuesday, who presents to the ED for evaluation after he had dialysis today and fell afterwards, hitting his right sikhism. He notes swelling to the right sikhism and reports LOC for a couple of seconds. He notes mechanical fall by tripping over his feet and falling onto his R sikhism followed by LOC. He also reports being on Plavix. Patient was able to finish dialysis without issue. Denies any headache, visual changes, temporal or eye pain, CP, abdominal pain, tongue bitting, bowel or bladder incontinence, or neck stiffness. He notes his tetanus is UTD. RN translating Time Seen by Provider: 01/16/19 19:37 Chief Complaint (Nursing): Syncope History Per: Patient History/Exam Limitations: no limitations Onset/Duration Of Symptoms: Hrs Current Symptoms Are (Timing): Still Present Fall Associated With With Symptoms: Yes Recent travel outside of the [place]: No Additional History Per: Patient Past Medical History Reviewed: Historical Data, Nursing Documentation, Vital Signs Vital Signs: Last Vital Signs Temp 98.3 F 01/16/19 19:21 Pulse 82 01/16/19 19:21 Resp 16 01/16/19 19:21 BP 133/66 01/16/19 19:21 Pulse Ox 97 01/16/19 19:21 Primary Care Provider: FAMILY PROVIDER,NO - Medical History PMH: Anemia, CHF, COPD, HTN, Hypercholesterolemia, End Stage Renal Disease Surgical History: No Surg Hx - [facility] Procedures (12/02/17) ASSISTANCE WITH RESPIRATORY VENTILATION, 24-96 HRS, CPAP (12/02/17) FLUOROSCOPY OF LEFT HEART USING LOW OSMOLAR CONTRAST (12/02/17) FLUOROSCOPY OF MULT COR ART USING L OSM CONTRAST (12/02/17) INSERTION OF ENDOTRACHEAL AIRWAY INTO TRACHEA, VIA OPENING (12/02/17) INSERTION OF INFUSION DEV INTO SUP VENA CAVA, PERC APPROACH (12/02/17) MEASURE OF CARDIAC SAMPL & PRESSURE, L HEART, PERC APPROACH (12/02/17) RESPIRATORY VENTILATION, LESS THAN 24 CONSECUTIVE HOURS (12/02/17) Family History: States: Unknown Family Hx - Social History Hx Alcohol Use: No (former, patient denies) Hx Substance Use: No - Immunization History Hx Tetanus Toxoid Vaccination: No (not sure) Hx Influenza Vaccination: Yes Hx Pneumococcal Vaccination: Yes Review Of Systems Constitutional: Negative for: Fever, Chills, Sweats, Weakness, Malaise, Weight loss Eyes: Negative for: Pain, Vision Change, Eyelid Inflammation, Redness ENT: Negative for: Ear Pain, Ear Discharge, Nose Pain, Nose Discharge, Nose Congestion, Mouth Pain, Mouth Swelling, Throat Pain Cardiovascular: Negative for: Chest Pain, Palpitations, Orthopnea, Edema, Light Headedness Respiratory: Negative for: Cough, Shortness of Breath, SOB with Excertion Gastrointestinal: Negative for: Nausea, Vomiting, Abdominal Pain, Diarrhea, Constipation, Melena, Hematochezia, Hematemesis Genitourinary: Negative for: Dysuria, Frequency, Hematuria Musculoskeletal: Negative for: Neck Pain, Back Pain Skin: Negative for: Rash, Lesions Neurological: Negative for: Weakness, Numbness, Confusion, Headache Psych: Negative for: Anxiety, Depression, Psychosis, Suicidal ideation, Withdrawal Physical Exam - Physical Exam Appears: Well, Non-toxic, No Acute Distress Skin: Warm, Dry, Other (hematoma to right sikhism, nontender to palpation. Small abrasion to right sikhism, nonbleeding.) Head: Normacephalic, Abrasion (to R sikhism, superficial. non bleeding), No Laceration Eye(s): bilateral: Normal Inspection (20/20 ), PERRL, EOMI Ear(s): Bilateral: Normal Nose: Normal, No Flaring, No Discharge, No Epistaxis, No Deformity, No Tenderness, No Septal Hematoma Oral Mucosa: Moist Throat: Normal, No Erythema, No Exudate, No Drooling Neck: Normal, Normal ROM, Trachea Midline, No Midline Cervical Tenderness, No Paracervical Tenderness, Supple, Other (no meningeal signs) Lymphatic: No Adenopathy Chest: Symmetrical, No Tenderness, Other (sternotomy scar on chest. no signs of infection) Cardiovascular: Rhythm Regular, No Friction Rub, No Murmur, No JVD Respiratory: No Rales, No Rhonchi, No Wheezing Gastrointestinal/Abdominal: Normal Exam, Soft, No Tenderness, No Mass, No Distention, No Guarding, No Hernia Back: Normal Inspection, No CVA Tenderness, No Vertebral Tenderness Extremity: Normal ROM, No Tenderness (hip/ extremities), Other (RUE fistula. Good bruit. Good thrill, no crepitus or erythema) Extremity: Bilateral: Normal Color And Temperature Pulses: Left Radial: Normal, Right Radial: Normal, Left Dorsalis Pedis: Normal, Right Dorsalis Pedis: Normal Neurological/Psych: Oriented x3, Normal Speech, Normal Cognition Gait: Steady ED Course And Treatment - Laboratory Results Result Diagrams: 01/16/19 20:03 01/16/19 20:03 O2 Sat by Pulse Oximetry: 97 (on RA) Pulse Ox Interpretation: Normal - CT Scan/US CT Head Other Rad Studies (CT/US): Read By Radiologist, Radiology Report Reviewed CT/US Interpretation: EXAM: CT Head Without IV contrast. CLINICAL HISTORY: Syncope. TECHNIQUE: Axial computed tomography images of the head/brain without intravenous contrast. COMPARISON: None provided. FINDINGS: BRAIN: Chronic periventricular and subcortical microvascular disease is seen. No acute intracranial pathology. VENTRICLES: There is generalized parenchymal atrophy noted as demonstrated by symmetrical dilatation of ventricles and sulci. ORBITS: The orbits are unremarkable. SINUSES AND MASTOIDS: The paranasal sinuses and mastoid air cells are clear. BONES: No fracture. SOFT TISSUES: Unremarkable. IMPRESSION: 1. There is generalized parenchymal atrophy. 2. Chronic periventricular and subcortical microvascular disease is seen. 3. No acute intracranial pathology. . Electronically signed on January 16, 2019 8:31:28 PM EDT by: Mark Hdz M.D., M.B.A., Certified By [employer]. Fellowship Trained MRI and CT Specialist. CT Orbits Other Rad Studies (CT/US): Read By Radiologist, Radiology Report Reviewed CT/US Interpretation: EXAM: CT Maxillofacial without Intravenous Contrast. CLINICAL HISTORY: Syncope. TECHNIQUE: Axial computed tomography images of the face without intravenous contrast. Sagittal and coronal reformatted images were generated. 0.00 mGy-cm. CONTRAST: Without. COMPARISON: None provided. FINDINGS: BONES: No acute fracture or aggressive appearing osseous lesion. The mandible is intact. SOFT TISSUES: The soft tissues are unremarkable. SINUSES: The sinuses are clear. ORBITS: The orbits are normal. No retrobulbar hematoma or mass. IMPRESSION: Unremarkable maxillofacial CT. . Electronically signed on January 16, 2019 8:50:32 PM EDT by: Mark Hdz M.D., M.B.A., Certified By [employer]. Fellowship Trained MRI and CT Specialist CT Cervical Other Rad Studies (CT/US): Read By Radiologist, Radiology Report Reviewed CT/US Interpretation: EXAM: CT Maxillofacial without Intravenous Contrast. CLINICAL HISTORY: Syncope. TECHNIQUE: Axial computed tomography images of the face without intravenous contrast. Sagittal and coronal reformatted images were generated. 0.00 mGy-cm. CONTRAST: Without. COMPARISON: None provided. FINDINGS: BONES: No acute fracture or aggressive appearing osseous lesion. The mandible is intact. SOFT TISSUES: The soft tissues are unremarkable. SINUSES: The sinuses are clear. ORBITS: The orbits are normal. No retrobulbar hematoma or mass. IMPRESSION: Unremarkable maxillofacial CT. . Electronically signed on January 16, 2019 8:50:32 PM EDT by: Mark Hdz M.D., M.B.A., Certified By [employer]. Fellowship Trained MRI and CT Specialist Medical Decision Making Medical Decision Making: Patient is a 73 year old male, with a PMHx of anemia, CHF, COPD, and hemodialysis Tuesday, , Tuesday, who presents to the ED for evaluation after he had dialysis today and fell afterwards, hitting his right sikhism. No palpable skull fx. No difficulty with vision. Normal pupil to R eye, EOMI fully intact. Denies any current pain. R sikhism w/ hematoma. non-expanding per pt. No ooze on exam. Plan: CT Cervical CT Head CT Orbits EKG Labs CXR Impression: syncopy with fall vs. ICH Pending labs and imaging. 2047 CTH unremarkable CO2 elevated, VBG added pt non-bradypnic on my exam 2099 cts all largely unremarkable pt remains EOMI, perrla, 20/20 vision b/l 2103 cxr on my read largely unremarkable 2208 Pt seek to sign out AMA: Alexey (Resident) translating Pt notes that he is aware he has had abnormal labs and may need observation but does not want to stay because he does not believe his fall was an issue and that he is feeling better. I endorsed that he could have a delayed bleed given being on plavix as well as an arrythmia causing his LOC / fall. I also endorsed the risk of potential / disability if he choose to live. HE endorsed understandings of risks of / disability and signed out AMA. pt in NAD, signed out AMA, w/ strong steady gait Disposition - Disposition Disposition: AGAINST MEDICAL ADVICE Disposition Time: 22:10 Condition: STABLE Forms: [facility] (Uzbek) - Clinical Impression Clinical Impression: Syncope - Scribe Statement The provider has reviewed the documentation as recorded by the Scribglenn Dickson All medical record entries made by the Scribe were at my direction and personally dictated by me. I have reviewed the chart and agree that the record accurately reflects my personal performance of the history, physical exam, medical decision making, and the department course for this patient. I have also personally directed, reviewed, and agree with the discharge instructions and disposition.
[2019-01-16 20:16] LABS: BASO % 0.6 % (0.0-2.0); EOS # 0.3 K/uL (0.0-0.7); LYMPH # 0.8 K/uL (1.0-4.3); LYMPH % 14.4 % (20.0-40.0); MEAN CORPUSCULAR HEMOGLOBIN 32.7 pg (27.0-31.0); MEAN CORPUSCULAR HGB CONC 33.8 g/dL (33.0-37.0); MONO # 0.6 K/uL (0.0-0.8); MONO % 11.1 % (0.0-10.0); NEUT # 3.7 K/uL (1.8-7.0); NEUT % 68.9 % (50.0-75.0); NRBC % 0.1 % (0.0-2.0); RBC 4.39 Mil/uL (4.40-5.90); RED CELL DISTRIBUTION WIDTH 14.7 % (11.5-14.5)
[2019-01-16 20:21] LABS: HEMOGLOBIN 14.4 g/dL (12.0-18.0); MEAN CELL VOLUME 96.9 fL (80.0-94.0); WHITE BLOOD COUNT 5.3 K/uL (4.8-10.8)
[2019-01-16 20:26] LABS: PARTIAL THROMBOPLASTIN TIME 29.1 SECONDS (21-34); PROTHROMBIN TIME 10.8 SECONDS (9.7-12.2)
[2019-01-16 20:37] LABS: TROPONIN I 0.017 ng/mL (0.00-0.120)
[2019-01-16 20:44] LABS: ALB/GLOB RATIO 1.1 (1.0-2.1); ALBUMIN 4.4 g/dL (3.5-5.0); CALCIUM 9.1 mg/dl (8.6-10.4)
[2019-01-16 21:20] LABS: VENOUS BLOOD GAS BASE EXCESS 15.9 mmol/L (0.0-2.0); VENOUS BLOOD GAS PCO2 52 mmHg (40-60); VENOUS BLOOD GAS PO2 35 mm/Hg (30-55); VENOUS BLOOD PH 7.51 (7.32-7.43)
[2019-01-16 23:31] VITALS: BP 143/80; PULSE 73; RESP 18; TEMP 98.1
--- NOTE | 2019-01-17 09:12 | CT ---
Date of service: 01/16/2019 PROCEDURE: CT HEAD WITHOUT CONTRAST. HISTORY: Syncope. COMPARISON: Comparison made with prior CT scan brain dated 12/05/2016. Correlation also made with concurrent CT scan of the maxillofacial skeleton TECHNIQUE: Axial computed tomography images were obtained through the head/brain without intravenous contrast. Radiation dose: Total exam DLP = 1059.13 mGy-cm. This CT exam was performed using one or more of the following dose reduction techniques: Automated exposure control, adjustment of the mA and/or kV according to patient size, and/or use of iterative reconstruction technique. FINDINGS: HEMORRHAGE: No acute parenchymal, subarachnoid or extra-axial hemorrhage. BRAIN: Mild chronic periventricular white matter ischemic changes seen extending peripherally the subcortical white matter both cerebral hemispheres. Moderate generalized volume loss VENTRICLES: No obstructive hydrocephalus. CALVARIUM: Calvarium intact. There is mild right posterior superior parietal scalp swelling. PARANASAL SINUSES: Unremarkable as visualized. No significant inflammatory changes. MASTOID AIR CELLS: Unremarkable as visualized. No inflammatory changes. OTHER FINDINGS: None. IMPRESSION: No acute intracranial hemorrhage. Mild chronic white matter ischemic changes. Moderate generalized volume loss. Mild right posterior superior parietal scalp swelling.
--- NOTE | 2019-01-17 09:21 | CT ---
Date of service: 01/16/2019 PROCEDURE: CT MAXILLOFACIAL BONES WITHOUT CONTRAST HISTORY: fainted COMPARISON: Correlation made with concurrent CT scan brain.. TECHNIQUE: Contiguous axial CT images of the maxillofacial bones were obtained. Coronal and sagittal reformats were generated. Radiation dose: Total exam DLP = 892.16 mGy-cm. This CT exam was performed using one or more of the following dose reduction techniques: Automated exposure control, adjustment of the mA and/or kV according to patient size, and/or use of iterative reconstruction technique. FINDINGS: NASAL BONES: There are chronic bilateral nasal bone fracture deformities. There is also localized leftward deviation of the nasal septum ORBITS: Right lateral periorbital soft tissue swelling changes of bilateral cataract surgery. PARANASAL SINUSES/ MASTOIDS: Paranasal sinuses are well-developed. Minor mucosal thickening both maxillary antra left greater than right. MAXILLA: Maxilla including the anterior nasal spine intact. MANDIBLE/ TEMPOROMANDIBULAR JOINTS: Unremarkable. SKULL BASE: Unremarkable. TEMPORAL BONES: Middle ears and mastoid grossly unremarkable. OTHER FINDINGS: Radicular cystic changes surrounding the right canine with suspected scattered dental caries. Mild degenerative spondylosis upper cervical spine most notably affecting the C5-C6 level. IMPRESSION: Right lateral periorbital soft tissue swelling. No acute fractures. Chronic bilateral nasal bone fracture deformities.
--- NOTE | 2019-01-17 09:30 | CT ---
Date of service: 01/16/2019 PROCEDURE: CT Cervical Spine without contrast HISTORY: Syncope COMPARISON: None available. TECHNIQUE: Axial computed tomography images were obtained of the cervical spine without the use of intravenous contrast. Coronal and sagittal reformatted images were created and reviewed. Radiation dose: Total exam DLP = 453.28 mGy-cm. This CT exam was performed using one or more of the following dose reduction techniques: Automated exposure control, adjustment of the mA and/or kV according to patient size, and/or use of iterative reconstruction technique. FINDINGS: VERTEBRAE: No acute compression fractures nor retropulsed fragments. Vertebral bodies exhibit stature. Bodies and facets normally aligned. DISCS/SPINAL CANAL/NEURAL FORAMINA: Degenerative spondylosis seen at the C5-C6 level. Changes include disc space narrowing, cortical endplate irregularity and subchondral cystic changes. There is a small broad-based disc ridge complex contiguous with hypertrophic uncovertebral joints. Facets also hypertrophic right greater than left. There is right-sided foraminal stenosis. Left exit foramen is marginal to narrowed. At the C3-C4 level, there is minimal anterior subluxation L3 over L4 with small central bilateral disc bulge that indents the ventral surface of the thecal sac and appears to reach ventral surface of cord. The overall central canal is marginal to adequate. Mild hypertrophic uncovertebral joint changes left greater than right. Facets also mildly hypertrophic greater than. Exit foramina appear on the right and marginal to adequate on the left. At the C4-C5 level, there is small focal central and bilateral disc protrusion that indents the ventral surface of thecal sac and spinal cord. Central canal is slightly narrowed. Exit foramina appear adequate. PARASPINAL SOFT TISSUES: Unremarkable. OTHER FINDINGS: Lung apices are clear. Note made an in situ Endocet vascular stent graft right subclavian vein extending into the IJ vein.. IMPRESSION: No acute fractures. Multilevel degenerative spondylosis as described.
--- NOTE | 2019-01-17 10:32 | RAD ---
Chest x-ray single frontal view HISTORY: Syncope. COMPARISON: 12/02/2017 FINDINGS: Mild venous congestion. Mild patchy increased markings at the lung bases. Right-sided vascular stent in place. Status post median sternotomy and CABG. Heart size within normal limits. Bilateral hilar prominence. Impression: Mild venous congestion. Mild patchy increased markings at the lung bases. Right-sided vascular stent in place. Status post median sternotomy and CABG. Heart size within normal limits. Bilateral hilar prominence.
[2019-01-17 21:09] VITALS: O2SAT 97
== END 2019-01-16 22:30 | disposition left against medical advice (07) ==
LOC: C.ER 19:04
DX: R55 Syncope and collapse (principal); J44.9 Chronic obstructive pulmonary disease, unspecified; I50.9 Heart failure, unspecified; E78.00 Pure hypercholesterolemia, unspecified; I12.0 Hypertensive chronic kidney disease with stage 5 chronic kidney disease or end stage renal disease; N18.6 End stage renal disease; Z99.2 Dependence on renal dialysis